=== PATIENT | female | born 1930 | race Caucasian/White ===

== ENCOUNTER 2017-02-20 17:31 | Inpatient (IN) | payer MEDICARE, OTHER ==
[~2017-02-20] VITALS: Ht 160 cm; Wt 66.4 kg
[~2017-02-20 17:31] MED LIST: ACET650T85 PO; AMIO200T PO; ATOR40TA21 PO; DOCU-144 PO; ETOMIDATE 20 MG INJ ONE; FOLI-49 PO; FURO-109 PO; HYDR-3498 PO; LEVO75TA5 PO; LORA-441 PO; MAGN400O4 PO; POTA20TA96 PO; PROSTAT PO; WARF1TAB47 PO; [UNRECOGNIZED DRUG - CODE] PO; miralax
[2017-02-20] MEDS ORDERED: SODIUM CHLORIDE 0.9% 1L BAG IV* STA (17:32)
[2017-02-20] MEDS ORDERED: CEFEPIME 2GM/50 ML (PMX) 50 ML IVPB STA (17:32)
[2017-02-20] MEDS ORDERED: SUCCINYLCHOLINE CHLORIDE 100 MG/5 ML SYG IV STA (17:32)
[2017-02-20] MEDS ORDERED: ETOMIDATE 20 MG INJ IV STA (17:32)
--- NOTE | 2017-02-20 17:44 | ERD ---
ER Documentation Chief Complaint Chief Complaint HPI This is an 86-year-old female presented to the emergency department brought in by EMS from [facility] for changes in her mental status. The patient is a full code. The patient is a phasic but nursing staff indicated she appeared to have severe difficulty in breathing and appeared less responsive prior to arrival. The patient did not have a fever and when EMS arrived the patient was not hypoxic on room air but appeared to be tachypneic. No further history is available at this time other than that the patient had a recent hospitalization at [facility] the patient has a known left buttock ulcer ROS All systems reviewed and are negative except as per history of present illness. Medications Home Meds Reported Medications Megestrol Acetate* (Megestrol Acetate*) 400 Mg/10 Ml Susp, 400 MG PO DAILY, ML 02/20/17 Mirtazapine* (Mirtazapine*) 7.5 Mg Tablet, 7.5 MG PO HS, TAB 02/20/17 Hydrocodone/Acetaminophen ([place] 7.5-325 Tablet) 1 Each Tablet, 1 EACH PO Q6 Y for MODERATE PAIN LEVEL 4-6, TAB 02/20/17 Albuterol Sulfate* (Albuterol Sulfate* Neb) 0.083%-3 Ml Neb, 2.5 MG NEB Q6 Y for WHEEZING AND SOB, #30 VIAL 02/20/17 Acetaminophen* (Acetaminophen*) 650 Mg Tablet, 650 MG PO Q6H Y for MILD PAIN LEVEL 1-3, #30 TAB 02/20/17 Metoprolol Tartrate* (Lopressor*) 25 Mg Tablet, 25 MG PO DAILY, #60 TAB 02/20/17 Warfarin Sodium* (Coumadin*) 1 Mg Tablet, 1 MG PO DAILY, TAB 02/20/17 Furosemide* (Lasix*) 20 Mg Tablet, 20 MG PO DAILY, TAB 02/20/17 Potassium Chloride* (Klor-Con*) 20 Meq Tabsr, 20 MEQ PO BID, TAB.SA 02/20/17 Multivitamins* (Theragran*) 1 Tab Tab, 1 TAB PO DAILY, TAB 02/20/17 Polyethylene Glycol* (Miralax*) 17 Gm Powd.pack, 17 GM PO DAILY, #30 PACKET 02/20/17 Megestrol Acetate* (Megace*) 40 Mg Tab, 40 MG PO BID, TAB 02/20/17 Levothyroxine Sodium* (Levoxyl*) 150 Mcg Tablet, 150 MCG PO BEFORE BREAKFAST, # 30 TAB 02/20/17 Ferrous Sulfate* (Ferrous Sulfate*) 325 Mg Tabec, 325 MG PO DAILY, TAB 02/20/17 Docusate Sodium* (Colace*) 100 Mg Capsule, 100 MG PO BID, #60 CAP 02/20/17 Calcium Carbonate/Vitamin D3 ([place] 500+D Tablet) 1 Each Tablet, 1 EACH PO DAILY , TAB 02/20/17 Atorvastatin* (Atorvastatin*) 40 Mg Tablet, 40 MG PO QHS, #30 TAB 02/20/17 Ascorbic Acid* (Vitamin C*) 500 Mg Capsule.sa, 500 MG PO DAILY, CAP 02/20/17 Polyvinyl Alcohol (Tears Again) 15 Ml Drops, 1 DRP BOTH EYES TID, BOTTLE 02/20/17 Amiodarone Hcl* (Amiodarone Hcl*) 100 Mg Tablet, 100 MG PO DAILY, #30 TAB 02/20/17 Acetaminophen (Tylenol 8 Hour) 650 Mg Tablet.sa, 650 MG PO Q4 PRN, 0 Refills 06/14/11 Discontinued Reported Medications Mirtazapine* (Remeron*) 15 Mg Tablet, 15 MG PO HS, TAB 02/20/17 Hydrocodone Bit-Acetaminophen* (Hydrocodone-APAP*) 5-325 Tablet, 1 TAB PO Q4H Y for PAIN LEVEL 1-5, TAB 08/06/14 Potassium Chloride* (Potassium Chloride*) 20 Meq Tablet.er, 20 MEQ PO DAILY, TAB.SA 08/06/14 [miralax] No Conflict Check 04/30/14 Furosemide* (Lasix*) 40 Mg Tablet, 40 MG PO DAILY, TAB 04/30/14 Atorvastatin (Lipitor) 40 Mg Tablet, 40 MG PO DAILY 09/15/11 Warfarin Sodium* (Coumadin*) 1 Mg Tablet, 1.5 MG PO Q 5PM 09/15/11 Magnesium Hydroxide* (Milk Of Magnesia*) 400 Mg/5 Ml Oral.susp, 400 MG PO 30 ML QHS PRN 09/15/11 Amiodarone Hcl* (Amiodarone Hcl*) 200 Mg Tablet, 200 MG PO DAILY 100mg PO DAILY 09/15/11 Levothyroxine Sodium* (Levothyroxine Sodium*) 75 Mcg Tablet, 100 MCG PO AM, #1 09/15/11 Docusate Sodium* (Colace*) 100 Mg Capsule, 100 MG PO BID, #1 CAP 09/15/11 Lorazepam* (Ativan*) 0.5 Mg Tablet, PO Q4 PRN 08/17/11 Folic Acid* (Folic Acid*) 1 Mg Tablet, PO DAILY 12/22/10 Multivitamins ([place]) 1 Tab Tablet, PO DAILY 12/22/10 [Prostat] No Conflict Check, 30 ML PO BID, 0 Refills 12/22/10 Allergies Allergies: Coded Allergies: epinephrine (Verified Allergy, Unknown, 04/30/14) procaine (Verified Allergy, Unknown, 04/30/14) Uncoded Allergies: NOVOCAINE (Allergy, Unknown, 04/30/14) PMhx/Soc History of Surgery: Yes (LEFT CATARACT SURGERY, CABG 2, LEFT LEG BLOOD CLOT INTERVENTION) Anesthesia Reaction: No Hx Neurological Disorder: No Hx Respiratory Disorders: No Hx Cardiac Disorders: Yes (HTN, HIGH CHOLESTEROL, CHF) Hx Psychiatric Problems: No Hx Miscellaneous Medical Probl: No Hx Alcohol Use: No Hx Substance Use: No Hx Tobacco Use: No Physical Exam Vitals Vital Signs Date Time Temp Pulse Resp B/P Pulse Ox O2 Delivery O2 Flow Rate FiO2 02/20/17 21:35 89 19 100 40 02/20/17 21:20 89 18 137/49 97 Mechanical Ventilator 02/20/17 20:40 98.2 92 18 122/56 96 Mechanical Ventilator 02/20/17 20:05 40 02/20/17 19:24 100.5 124 36 142/52 93 02/20/17 19:15 97 23 100 100 02/20/17 18:50 93 4.0 Physical Exam Constitutional:Well-developed. Debilitatated female in severe respiratory distress HEENT:Normocephalic. Atraumatic.Pupils were equal round reactive to light. Dry mucous membranes.No tonsillar exudates. Neck: No nuchal rigidity. No lymphadenopathy. No posterior cervical spine tenderness or step-offs. Breast: Patient appeared to have breast deformities with a nontender large nodule in each breast that was thought to be secondary to previous breast implants Respiratory: Tachypneic. Using accessory muscles of respiration. Decreased breath sounds heard throughout the right lower lung base. No wheezing rhonchi or rales. No stridor Cardiovascular: Tachycardic with rate regular rhythm.No murmurs. No rubs were appreciated.S1, S2 normal. Distal pulses are palpable 2+ bilaterally. GI: Abdomen was soft. Nontender. Non Distended. No pulsatile abdominal masses or bruits. No rebound. No guarding. Bowel sounds were present and normal. Muscle skeletal: Patient had muscle atrophy and no movement of the lower extremities. Withdrew to pain in the bilateral upper extremities Skin: No petechia, no purpura. No lesions on the palms or the soles of the feet. No maculopapular rash. Left sacral decubitus ulcer stage I with no purulent drainage. NEURO: Patient opened eyes in response to pain. Patient withdrew to pain. Patient did not follow verbal command. Patient was aphasic. Result Diagram: 02/20/17183902/[id number]/171839 Results 24 hrs Laboratory Tests Test 02/20/17 17:32 02/20/17 18:40 02/20/17 20:37 02/20/17 20:40 Blood Gas Specimen Source Blood arterial Arterial Blood Date Drawn 02/20/2017 7:56:02 PM Arterial Blood pH (Temp corrected) 7.291 Arterial Blood pCO2 (Temp correct) 29.5mmhg Arterial Blood pO2 (Temp corrected) 432.5mmHG Arterial Blood HCO3 13.9mmol/L Arterial Blood Base Excess -11.3mmol/L Arterial Blood Oxygen Saturation 99.6mmHG Simon Test ACCEPTAB Arterial Blood Gas Puncture Site Right Radial Arterial Blood Carboxyhemoglobin 0.3% Arterial Blood Methemoglobin 0.2% Blood Gas A-a O2 Differential 251.0mmHg Oxyhemoglobin Percent 99.1% Total Hemoglobin 12.6g/dl Blood Gas Temperature 37.0C Blood Gas Respiration Rate 18.0 Blood Gas Actual Respiration Rate 22 Blood Gas Modality VENT - AC FiO2 100.0% Blood Gas Tidal Volume 450.0mL Blood Gas Low PEEP Setting 0cmH2O Blood Gas Inspiratory Pressure 18.0 Blood Gas Critical Value Read Back LALO BHANDARI Blood Gas Notified Whom BR Blood Gas Notified Time 02/20/2017 8:02:55 PM White Blood Count 17.410^3/ul Red Blood Count 4.0510^6/ul Hemoglobin 12.7g/dl Hematocrit 39.8% Mean Corpuscular Volume 98.3fl Mean Corpuscular Hemoglobin 31.4pg Mean Corpuscular Hemoglobin Concent 31.9g/dl Red Cell Distribution Width 15.9% Platelet Count 36569^3/UL Mean Platelet Volume 11.5fl Neutrophils % % Segmented Neutrophils % (Manual) 92% Band Neutrophils % (Manual) 2% Lymphocytes % % Monocytes % % Monocytes % (Manual) 6% Eosinophils % % Basophils % % Nucleated Red Blood Cells % 0.0/100WBC Neutrophils # 10^3/ul Neutrophils # (Manual) 16.110^3/ul Band Neutrophils # 0.310^3/ul Lymphocytes # 10^3/ul Monocytes # 10^3/ul Absolute Monocytes (Manual) 1.010^3/ul Eosinophils # 10^3/ul Basophils # 10^3/ul Nucleated Red Blood Cells # 10^3/ul Platelet Estimate NORMAL Anisocytosis 1+ Prothrombin Time 39.4Sec Prothrombin Time Ratio 3.0 INR International Normalized Ratio 3.92 Activated Partial Thromboplast Time 41.2Sec Sodium Level 147mmol/L Potassium Level 5.5mmol/L Chloride Level 115mmol/L Carbon Dioxide Level 16mmol/L Anion Gap 22 Blood Urea Nitrogen 33mg/dl Creatinine 1.05mg/dl Glucose Level 149mg/dl Lactic Acid Level 4.0mmol/L 2.7mmol/L Calcium Level 8.9mg/dl Total Bilirubin 0.8mg/dl Direct Bilirubin 0.00mg/dl Indirect Bilirubin 0.8mg/dl Aspartate Amino Transf (AST/SGOT) IU/L Alanine Aminotransferase (ALT/SGPT) 1464IU/L Alkaline Phosphatase 84IU/L Troponin I 0.086ng/ml Total Protein 6.8g/dl Albumin 3.5g/dl Globulin 3.30g/dl Albumin/Globulin Ratio 1.06 Amylase Level 77U/L Lipase 64U/L Urine Color ERIN Urine Clarity CLOUDY Urine pH 5.0 Urine Specific [place] 1.017 Urine Ketones NEGATIVEmg/dL Urine Nitrite NEGATIVEmg/dL Urine Bilirubin NEGATIVEmg/dL Urine Urobilinogen 1+mg/dL Urine Leukocyte Esterase NEGATIVELeu/ul Urine Microscopic RBC 1/HPF Urine Microscopic WBC 1/HPF Urine Amorphous Crystals MODERATE/HPF Urine Bacteria FEW/HPF Urine Hemoglobin NEGATIVEmg/dL Urine Glucose NEGATIVEmg/dL Urine Total Protein 2+mg/dl Current Medications Medications (Trade) Dose Ordered Sig/Maikel Route PRN Reason Start Time Stop Time Status Last Admin Dose Admin Sodium Chloride 2170 ml 2,170 ml BOLUS OVER 2 HOURS STAT IV* 02/20/17 17:32 02/20/17 17:38 DC 02/20/17 19:05 Cefepime HCl 50 ml @ 100 mls/hr ONCE STAT IVPB 02/20/17 17:32 02/20/17 18:01 DC 02/20/17 19:05 Vancomycin HCl (Vancocin) 250 ml @ 125 mls/hr ONCE ONCE IVPB 02/20/17 18:00 02/20/17 19:59 DC 02/20/17 18:00 Succinylcholine Chloride (Anectine Syringe) 100 mg ONCE STAT IV 02/20/17 17:32 02/20/17 17:38 DC Etomidate 10 mg 10 mg ONCE STAT IV 02/20/17 17:32 02/20/17 17:39 DC Midazolam HCl 50 ml @ 3 mls/hr ONCE STAT IV 02/20/17 19:55 02/21/17 12:34 02/20/17 20:11 Dextrose/Sodium Chloride (D5-1/2ns) 1,000 ml @ 100 mls/hr Q10H IV 02/20/17 21:14 Ondansetron HCl (Zofran Inj) 4 mg Q6H PRN IV NAUSEA AND/OR VOMITING 02/20/17 21:30 Albuterol/ Ipratropium (Duoneb) 3 ml Q2H RESP THERAPY PRN NEB SHORTNESS OF BREATH 02/20/17 21:30 Acetaminophen (Tylenol Liquid) 650 mg Q6H PRN PO PAIN LEVEL 1-3 OR FEVER 02/20/17 21:30 Morphine Sulfate (morphine) 2 mg Q4H PRN IV PAIN LEVEL 7-10 02/20/17 21:30 UNV Lorazepam (Ativan) 1 mg Q2H PRN IV ANXIETY 02/20/17 21:30 UNV Magnesium Hydroxide (Milk Of Mag) 30 ml DAILY PRN PO CONSTIPATION 02/20/17 21:30 UNV Pantoprazole (Protonix Iv) 40 mg DAILY@06 IV 02/21/17 06:00 UNV Heparin Sodium (Porcine) 5000 unit 5,000 unit Q12 SC 02/21/17 09:00 UNV Propofol 100 ml @ 2.181 mls/ hr PER PROTOCOL IV 02/20/17 21:30 UNV Norepinephrine 250 ml @ 1.875 mls/ hr PER PROTOCOL IV 02/20/17 21:30 UNV Meropenem/Sodium Chloride (Merrem 500mg/50 ml(Pmx)) 50 ml @ 200 mls/hr Q8 IVPB 02/20/17 22:00 UNV Vancomycin HCl (Vanco Iv Per Pharmacy) VANCOMYCIN PER PHARMACY PER PROTOCOL XX 02/20/17 21:30 UNV Procedures/MDM Patient presented to the emergency department in severe respiratory distress and changes in her mental status. The patient presented to the emergency department with an acute and persistent change in their mental status. The differential diagnosis is diverse however reversible causes such as hypoglycemia , opiate overdose, thiamine deficiency were immediately considered. The patient was placed on a cardiac rehabilitation program director, continuous pulse oximetry and IV access was established. The patients airway was not secured she had impending airway failure with tachypnea and therefore I had to consider hypoxic events such as anemia, shock, or severe pulmonary disease were all considered as etiologies in this patients presentation. Circulation assessed with good cap refill. Finger stick for rapid glucose determined to be normal. Patient's infectious symptoms have not stabilized and the patient is at risk of rapid decompensation. The patient will be admitted for careful hydration, antibiotic therapy, and infectious source control. Severe Sepsis Assessment: Infectious Source: Pneumonia End organ damage indicated by: Lactate > 2.0 mmol/L Hypotension( SBP < 90 or >40 mmHG drop or MAP < 65) Acute Resp Failure (sat < 92% w/o oxygen) Severe Sepsis Managment: Blood Cultures X 2 before broad spectrum antibiotics initiated within 3 hours of recognition. 30 ml/kg NS bolus Completed Initial Lactate: 4.0 Repeat Lactate 2.7 Critical Care: Treatments/Evaluations: Emergent fluid management, while maintaining close respiratory support. Immediate broad spectrum antibiotic therapy. Simultaneous assessment for possible sources in order to direct therapy. Consideration for invasive and chemical support to prevent respiratory or cardiac collapse. Septic Shock Assessment (1 hour post 30 ml/kg fluid bolus): Hypotension (SBP < 90 or 40 mmHg drop, MAP < 65): No Lactic acid > 4.0 Yes Perfusion Reassessment for Septic Shock: Temp 98.2, Pulse 89 RR 18, BP 137/49 Heart Exam: Tachycardic Lung Exam: No Crackles Capillary Refill: Delayed Peripheral Pulses: Radially present Skin: Mottled, pale Hypotensive Treatment (not required for isolated lactic acid elevation): Comfort Care: No Central LIne: Left IJ Vasopressor started: not required. I considered further perfusion assessment with CVP measurement, SCVO2, bedside ultrasound volume assessment, passive leg raise, trial of further fluid bolus. And preceded with IV fluids 12 Lead EKG tracing ordered and reviewed by myself showed: Irregular irregular tachycardic at 121 bpm and no arrhythmia. CA interval not appreciated as patient had atrial fibrillation QRS duration normal. No ST segment elevation No ST segment depression. No changes consistent with acute ischemia. The patient was in A. fib with RVR with I did feel this was more likely secondary to severe dehydration as the patient's tachycardia had resolved after receiving the 30 cc/kg bolus of normal saline. The patient had mild hyperkalemia and was treated with calcium chloride and amp of bicarb and continuous nebulizer treatment of albuterol. CT scan of the head showed no acute intracerebral hemorrhage mass-effect or midline shift and this was ordered due to the patient's change in her mental status. I did feel the altered mental status was likely secondary to the patient's septic shock She was intubated using RSI for airway protection as the patient had impending airway failure. Patient was given etomidate and succinylcholine. Patient had a 7.50 endotracheal tube seen in past going to the cords by myself. Secured to the lip line of roughly 23 cm in the chest radiograph indicated this was 5 cm above the cristian and therefore the tube was repositioned. Tube was confirmed to be in good position after equal symmetrical breath sounds were heard bilaterally, condensation seen within the tube in good repositioned on repeat chest radiograph The patient was critically ill and required central venous access. The patient was unable to consent due to her severe altered mental status and after was prepped and draped in a sterile fashion. Time out performed and the left internal jugular vein was cannulated using the Seldinger technique after anesthesia administered with 1% lidocaine locally. A triple lumen catheter used. The guidewire was easily thread into the vessel. The guidewire was retrieved, removed and disposed of. All three ports santa back venous blood and flushed easily. The line was secured in place with 2 simple interrupted sutures and a biostat was applied over the area in inoculation. The patient tolerated the procedure well with no complications. ED Ultrasound: Central line placed by me using concurrent ultrasound guidance. Real time image archived in the medical record confirms vascular anatomy. Critical Care: Time: 70 minutes Treatments/Evaluations: Close monitoring and treatment of unstable vital signs, cardiorespiratory, and neurologic status, while maintaining tight balance of fluid, respiratory, and cardiac interventions. Time does not include performing any of the above billable procedures. Patient will be admitted in serious condition to the hospitalist Dr. Carl with an anticipated stay of greater than 2 midnights. Departure Diagnosis: Primary Impression: Septic shock Additional Impressions: Pneumonia Pneumonia type: due to unspecified organism Laterality: left Lung location : lower lobe of lung Qualified Code: J18.1 - Pneumonia of left lower lobe due to infectious organism Hyperkalemia Respiratory failure requiring intubation Condition: Serious PANFILO SAGE Feb 20, 2017 17:44
[2017-02-20] MEDS ORDERED: VANCOMYCIN 1 GM (PMX) 250 ML IVPB ONE (18:00)
[2017-02-20] MEDS ORDERED: AMIO100T4 PO (18:17)
[2017-02-20] MEDS ORDERED: POLY15DR25 BOTH EYES (18:17)
[2017-02-20] MEDS ORDERED: ATOR40TA68 PO (18:18)
[2017-02-20] MEDS ORDERED: ASCO500C7 PO (18:18)
[2017-02-20] MEDS ORDERED: DOCU-144 PO (18:19)
[2017-02-20] MEDS ORDERED: FER325 PO (18:19)
[2017-02-20] MEDS ORDERED: LEVO150T64 PO (18:19)
[2017-02-20] MEDS ORDERED: CALC1TAB79 PO (18:19)
[2017-02-20] MEDS ORDERED: MEGE40TA PO (18:21)
[2017-02-20] MEDS ORDERED: POLY17PO6 PO (18:21)
[2017-02-20] MEDS ORDERED: MULTI PO (18:22)
[2017-02-20] MEDS ORDERED: FURO-110 PO (18:22)
[2017-02-20] MEDS ORDERED: POTA-57 PO (18:22)
[2017-02-20] MEDS ORDERED: WARF1TAB47 PO (18:23)
[2017-02-20] MEDS ORDERED: METO25TA4 PO (18:23)
[2017-02-20] MEDS ORDERED: ACET-2047 PO (18:24)
[2017-02-20] MEDS ORDERED: ALBU2.5V3 NEB (18:24)
[2017-02-20] MEDS ORDERED: HYDR-905 PO (18:25)
[2017-02-20] MEDS ORDERED: MIRT7.5T8 PO (18:26)
[2017-02-20] MEDS ORDERED: MIRT15TA PO (18:26)
[2017-02-20] MEDS ORDERED: MEG40/1 PO (18:28)
[2017-02-20 19:07] LABS: ABNORMAL IP MESSAGE 1; HEMATOCRIT 39.8 % (37.0-47.0); HEMOGLOBIN 12.7 g/dl (12.0-16.0); MEAN CORPUSCULAR HEMOGLOBIN 31.4 pg (29.0-33.0); MEAN CORPUSCULAR HGB CONC 31.9 g/dl (32.0-37.0); MEAN CORPUSCULAR VOLUME 98.3 fl (82.0-101.0); MEAN PLATELET VOLUME 11.5 fl (7.4-10.4); PLATELET COUNT 275 10^3/UL (140-415); RED BLOOD COUNT 4.05 10^6/ul (4.20-5.40); RED CELL DISTRIBUTION WIDTH 15.9 % (11.5-14.5); WHITE BLOOD COUNT 17.4 10^3/ul (4.8-10.8)
[2017-02-20 19:10] LABS: POSITIVE DIFF @See below
--- NOTE | 2017-02-20 19:11 | RADRPT ---
PROCEDURE: Chest x-ray CLINICAL INDICATION: Central line placement TECHNIQUE: Chest single view COMPARISON: None FINDINGS: There is a left IJ venous line with tip in the proximal SVC. No pneumothorax is identified. Post tho racotomy changes are noted for a mitral, aortic, tricuspid valve replacement. Moderate cardiomegaly and an sclerotic aortic calcification is seen. There is mild interstitial CHF. Small bilateral pleur al effusions are seen. Bones are osteopenic. IMPRESSION: 1. Left IJ venous line with tip in the proximal SVC. No pneumothorax. 2. Cardiomegaly with mild CHF and small bilateral pleural effusions. 3. Atherosclerotic aortic calcification. 4. Status post aortic, mitral, and tricuspid valve replacement RPTAT: HH .Binh Taveras MD, Date Time Electronically viewed and signed by .Binh Taveras MD, on 02/20/2017 19:10 .W/
[2017-02-20 19:26] LABS: INR 3.92; PARTIAL THROMBOPLASTIN TIME 41.2 Sec (25.0-35.0)
[2017-02-20 19:29] LABS: ALBUMIN 3.5 g/dl (3.3-4.9); ALBUMIN/GLOBULIN RATIO 1.06; BILIRUBIN,INDIRECT 0.8 mg/dl (0-1.1); BILIRUBIN,TOTAL 0.8 mg/dl (0.2-1.3); CALCIUM 8.9 mg/dl (8.4-10.2); CREATININE 1.05 mg/dl (0.44-1.00); TOTAL PROTEIN 6.8 g/dl (6.1-8.1)
[2017-02-20 19:35] LABS: POTASSIUM 5.5 mmol/L (3.5-5.1)
[2017-02-20 19:38] LABS: PROTIME 39.4 Sec (12.2-14.2)
[2017-02-20 19:46] LABS: ANISOCYTOSIS 1+ (0-0); BURR CELLS 1+ (0-0); MONOCYTES % (M) 6 % (0-11); PLATELET ESTIMATE NORMAL
[2017-02-20 19:49] LABS: TROPONIN-I 0.086 ng/ml (0.00-0.12)
[2017-02-20] MEDS ORDERED: MIDAZOLAM (DRIP) 50 mg/50 mL 50 ML IV STA (19:55)
--- NOTE | 2017-02-20 19:57 | RADRPT ---
PROCEDURE: XR Chest. CLINICAL INDICATION: Endotracheal intubation. TECHNIQUE: Single frontal view of the chest COMPARISON: Plain film chest dated today, about 1 hour ago. FINDINGS: Endotracheal intubation is seen with tip about 5 cm above the cristian. Left central venous line again seen with tip in the superior vena cava. Cardiomegaly with atherosclerotic calcifications in the thoracic aorta. Left lung base pneumonia. Mi ld air space disease at the right lung base. Mild blunting of costophrenic angles suggest small bila teral pleural effusions. Prominence of bilateral pulmonary arteries may represent a degree of pulmon reggie artery hypertension. No signs of pneumothorax are seen. The osseous structures and soft tissues are unremarkable. IMPRESSION: 1. Left lung base pneumonia. 2. Small bilateral pleural effusions. 3. Nonspecific mild opacity at the right apex. 4. Endotracheal intubation is seen with tip about 5 cm above the cristian. 5. Left central venous line again seen with tip in the superior vena cava. RPTAT: UU Physician Michelle Date Time Electronically viewed and signed by Physician Michelle on 02/20/2017 19:57 RS/
[2017-02-20 20:03] LABS: Allen Test ACCEPTAB; Arterial Base Excess -11.3 mmol/L (-3.0-3); Arterial COHb 0.3 % (0.0-3.0); Arterial Fraction of Oxyhgb 99.1 % (93.0-99.0); Arterial HCO3 13.9 mmol/L (22.0-26.0); Arterial MetHb 0.2 % (0.0-1.5); Arterial Total Hemglobin 12.6 g/dl (12.0-18.0); Blood Gas Low PEEP Setting 0 cmH2O; MODE VENT - AC
[2017-02-20] MEDS: DEXTROSE 5%-0.45% NACL 1,000 ML IV SCH (21:14)
[2017-02-20 21:24] LABS: ADD UMIC YES; UR AMORPHOUS CRYSTAL MODERATE /HPF (NONE SEEN); UR ASCORBIC ACID 40 mg/dL (NEGATIVE); UR BACTERIA FEW /HPF (NONE SEEN); UR BILIRUBIN (Dip) NEGATIVE (NEGATIVE); UR BLOOD (Dip) NEGATIVE (NEGATIVE); UR CLARITY CLOUDY (CLEAR); UR COLOR AMBER (YELLOW); UR GLUCOSE (Dip) NEGATIVE (NEGATIVE); UR KETONES (Dip) NEGATIVE (NEGATIVE); UR LEUKOCYTE ESTERASE (Dip) NEGATIVE Leu/ul (NEGATIVE); UR NITRITE (Dip) NEGATIVE (NEGATIVE); UR RBC 1 /HPF (0-5); UR SPECIFIC GRAVITY (Dip) 1.017 (1.003-1.030); UR TOTAL PROTEIN (Dip) 2+ mg/dl (NEGATIVE); UR UROBILINOGEN (Dip) 1+ mg/dL (NEGATIVE)
[2017-02-20] MEDS ORDERED: ALBUTEROL/IPRATROPIUM (NEB) 3 ML AMP NEB PRN (21:30)
[2017-02-20] MEDS ORDERED: NORepinephrine 8MG/250 ML (PMX 250 ML IV SCH (21:30)
[2017-02-20] MEDS ORDERED: ACETAMINOPHEN 650MG/20.3ML CUP PO PRN (21:30)
[2017-02-20] MEDS ORDERED: MAGNESIUM HYDROXIDE 30ML CUP PO PRN (21:30)
[2017-02-20] MEDS ORDERED: PROPOFOL 100 ML IV SCH (21:30)
[2017-02-20] MEDS ORDERED: ONDANSETRON 4 MG INJ IV PRN (21:30)
[2017-02-20] MEDS ORDERED: LORAZEPAM 2 MG INJ IV PRN (21:30)
[2017-02-20] MEDS ORDERED: VANCOMYCIN IV PER PHARMACY XX SCH (21:30)
[2017-02-20] MEDS ORDERED: ALBUTEROL 0.5% (NEB) 2.5 MG/0.5 ML AMP INH STA (21:41)
[2017-02-20] MEDS ORDERED: NA BICARBONATE 8.4% 50 ML SYG IV STA (21:41)
[2017-02-20] MEDS ORDERED: CA CHLORIDE 10% 10 ML SYRINGE IV STA (21:41)
--- NOTE | 2017-02-20 22:16 | RADRPT ---
PROCEDURE: CT head without contrast. CLINICAL INDICATION: Altered mental status. TECHNIQUE: Multiple contiguous axial images were obtained from the base of the skull to the vertex without administration of intravenous contrast. Coronal and sagittal reformats were obtained. The total exam CTDI equals 45 mGy and the total exam DLP equals 720 mGy-cm. DICOM images are available . One or more of the following dose reduction techniques were utilized: - Automated exposure control - Adjustment of the mA and/or kV according to patient size - Use of iterative reconstruction technique COMPARISON: None. FINDINGS: The ventricles, basal cisterns and sulcal pattern are prominent and consistent with parenchymal volu me loss. There is no acute mass effect, midline shift or hemorrhage. No extra-axial fluid collecti ons are identified. Extensive diminished attenuation in the subcortical and periventricular white matter is compatible w ith chronic microvascular ischemic changes. More focal hypoattenuation in the right occipital lobe a nd right cerebellar hemisphere are consistent with a chronic infarcts. The bones of the calvarium are intact. The paranasal sinuses and bilateral mastoid complexes are gr ossly within normal limits. There are bilateral age indeterminate nasal bone fractures. Feeding tube is present. Associated nasopharyngeal secretions are present. IMPRESSION: 1. No acute intracranial pathology. 2. Extensive chronic microvascular ischemic changes. 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 RPTAT:AAJJ Physician Ngozi Date Time Electronically viewed and signed by Physician Ngozi on 02/20/2017 22:15 QL/
[2017-02-20] MEDS: morphine 2 MG INJ IV PRN (22:17)
[2017-02-20 22:20] VITALS: TEMP 98.1
[2017-02-20] MEDS: MEROPENEM 500MG/50 ML (PMX) 50 ML IVPB SCH (22:43)
[2017-02-20 23:48] VITALS: PULSE 117
[2017-02-21] VITALS (73 sets, daily range): BP systolic 72–157; BP diastolic 34–77; PULSE 82–154; RESP 18–22; Ht 160 cm; Wt 66.4 kg
[2017-02-21 05:33] LABS: BASOPHILS % 0.2 % (0.0-2.0); HEMATOCRIT 33.9 % (37.0-47.0); HEMOGLOBIN 10.7 g/dl (12.0-16.0); LYMPHOCYTES # 0.7 10^3/ul (0.8-2.9); LYMPHOCYTES % 5.1 % (15.0-51.0); MEAN CORPUSCULAR HEMOGLOBIN 31.1 pg (29.0-33.0); MEAN CORPUSCULAR HGB CONC 31.6 g/dl (32.0-37.0); MEAN CORPUSCULAR VOLUME 98.5 fl (82.0-101.0); MEAN PLATELET VOLUME 11.1 fl (7.4-10.4); MONOCYTE # 0.5 10^3/ul (0.3-0.9); MONOCYTES % 4.2 % (0.0-11.0); NEUTROPHIL # 11.6 10^3/ul (1.6-7.5); NEUTROPHILS % 89.7 % (39.0-77.0); PLATELET COUNT 199 10^3/UL (140-415); RED BLOOD COUNT 3.44 10^6/ul (4.20-5.40); RED CELL DISTRIBUTION WIDTH 15.9 % (11.5-14.5); WHITE BLOOD COUNT 12.9 10^3/ul (4.8-10.8)
[2017-02-21 05:52] LABS: ALBUMIN 2.7 g/dl (3.3-4.9); ALBUMIN/GLOBULIN RATIO 0.87; BILIRUBIN,INDIRECT 0.5 mg/dl (0-1.1); BILIRUBIN,TOTAL 0.5 mg/dl (0.2-1.3); CALCIUM 8.5 mg/dl (8.4-10.2); CREATININE 1.13 mg/dl (0.44-1.00); POTASSIUM 4.4 mmol/L (3.5-5.1); TOTAL PROTEIN 5.8 g/dl (6.1-8.1)
[2017-02-21] MEDS ORDERED: PANTOPRAZOLE 40 MG INJ IV SCH (06:00)
--- NOTE | 2017-02-21 06:39 | HP ---
Date/Time of Note Date/Time of Note DATE: 02/21/17 TIME: 06:21 Assessment/Plan VTE Prophylaxis VTE Prophylaxis Intervention: SCD's, other (INR almost 4) Lines/Catheters IV Catheter Type (from Nrsg): Central Line Central line still needed: Yes Urinary Cath still in place: Yes Reason Cath still needed: other (indicate) Assessment/Plan Assessment/Plan 1. Septic shock, multifactorial etiology: Left lung base pneumonia, left buttock ulcer, ESBL UTI per SNF -Continue pressor and vent support -Broad-spectrum antibiotics -IV fluids -Follow-up culture results -ID consult -Wound care consult for left buttock ulcer 2. Vent dependent respiratory failure -Continue vent support -Breathing treatments -Pulmonary consult -Check ABG in a.m. 3. Shock liver -Obtain CT abdomen/pelvis vs abdominal ultrasound -Treat septic shock -GI consult 4. Acute encephalopathy -Patient with a history of CVA. This is actually acute on chronic, secondary to septic shock -will obtain additional brain imaging as needed -Neurology consult -Treat infection 5. History of mitral valve repair, on Coumadin with INR almost 4 -Hold Coumadin -2D echo and cardiology consult 6. History of hypothyroidism -Check TSH -Continue Synthroid 7. Presumed AK I -Treat septic shock -If no improvement in a.m., will obtain renal ultrasound 8. Electrolyte abnormalities -Correct as needed HPI/ROS Admit Date/Time Admit Date/Time Feb 20, 2017 at 21:09 Hx of Present Illness This is an 86-year-old female with a history of CVA, mitral valve repair and left buttock ulcer who was sent from a correction facility for worsening altered mentation. Reportedly when EMS arrived, she was hypoxic. When patient presented to the ER, she was unresponsive. She was intubated for airway protection. Reportedly patient was in [facility] and has been treated for ESBL UTI. On initial presentation to the ER, she was in A-fib with RVR with a heart rate as high as 129. Chest x-ray with left lower lung base pneumonia. Head CT shows Extensive chronic microvascular ischemic changesChronic infarcts in the right occipital lobe and right cerebellar hemisphere. Labs shows a WBC of 17,000, potassium 5.5, bicarb 16, creatinine 1.05, ALT almost 1500. Initial lactic acid was 4 with repeat 2.1. Initial ABG shows a pH of 7.29, PCO2 29, PO2 432, bicarb 14 on 100% FiO2 PMH/Family/Social Social History Smoking Status: Unknown if ever smoked Exam/Review of Systems Vital Signs Vitals Vital Signs Date Time Temp Pulse Resp B/P Pulse Ox O2 Delivery O2 Flow Rate FiO2 02/21/17 05:40 97 18 98 30 02/21/17 05:30 114/54 Mechanical Ventilator 02/21/17 04:00 97.8 02/20/17 18:50 4.0 Intake and Output 02/20/17 02/20/17 02/21/17 15:00 23:00 07:00 Intake Total 359 ml Balance 359 ml Exam Constitutional: other (Intubated. Unresponsive. No discomfort noted on the vent) Head: atraumatic, normocephalic Eyes: other (Right pupil is dilated and is unresponsive to light. Left eye is responsive to light) Respiratory: diminished breath sounds Cardiovascular: other (Tachycardic with regular rhythm), systolic murmur Gastrointestinal: soft Extremities: normal pulses Skin: other (Left buttock ulcer) Labs Result Diagram: 02/20/17 1840 02/21/17 0505 Medications Medications Current Medications Dextrose/Sodium Chloride (D5-1/2ns) 1,000 ml @ 100 mls/hr Q10H IV Last administered on 02/20/17 21:14; Admin Dose 100 MLS/HR; Start 02/20/17 at 21: 14 Ondansetron HCl (Zofran Inj) 4 mg Q6H PRN IV NAUSEA AND/OR VOMITING; Start 03/27 at 21:30 Acetaminophen (Tylenol Liquid) 650 mg Q6H PRN PO PAIN LEVEL 1-3 OR FEVER; Start 02/20/17 at 21:30 Morphine Sulfate (morphine) 2 mg Q4H PRN IV PAIN LEVEL 7-10 Last administered on 02/20/17 22:17; Admin Dose 2 MG; Start 02/20/17 at 21:30 Lorazepam (Ativan) 1 mg Q2H PRN IV ANXIETY; Start 02/20/17 at 21:30 Magnesium Hydroxide (Milk Of Mag) 30 ml DAILY PRN PO CONSTIPATION; Start 02/20 at 21:30 Pantoprazole (Protonix Iv) 40 mg DAILY@06 IV ; Start 02/21/17 at 06:00 Heparin Sodium (Porcine) 5000 unit 5,000 unit Q12 SC ; Start 02/21/17 at 09:00 Meropenem/Sodium Chloride 50 ml @ 200 mls/hr Q12 IVPB Last administered on t 22:43; Admin Dose 200 MLS/HR; Start 02/20/17 at 22:00 Vancomycin HCl/ Dextrose/Water (Vancocin/D5W) 150 ml @ 75 mls/hr Q24H IVPB ; Start 02/21/17 at 13:00 JAMEEL GIRARD MD Feb 21, 2017 06:35
[2017-02-21] MEDS ORDERED: MIDAZOLAM (DRIP) 50 mg/50 mL 50 ML IV SCH (07:00)
[2017-02-21] MEDS ORDERED: FENTAnyl (DRIP) 1000 mcg/100mL 100 ML IV ONE (08:40)
[2017-02-21] MEDS: LEVOTHYROXINE 150 MCG TAB PO SCH (08:53)
[2017-02-21] MEDS: DEXTROSE 5%-0.45% NACL 1,000 ML IV SCH ×3 (08:53→21:36)
[2017-02-21] MEDS ORDERED: FENTAnyl (DRIP) 1000 mcg/100mL 100 ML IV SCH (09:00)
[2017-02-21] MEDS ORDERED: HEPARIN 5,000 UNIT/0.5 ML VIAL SC SCH (09:00)
[2017-02-21] MEDS ORDERED: WARFARIN 1 MG TAB PO SCH (09:30)
[2017-02-21 09:35] LABS: AADO2 Arterial 73.3 mmHg (7.0-24.0); Allen Test ACCEPTAB; Arterial Base Excess -6.7 mmol/L (-3.0-3); Arterial COHb 0.1 % (0.0-3.0); Arterial Fraction of Oxyhgb 97.6 % (93.0-99.0); Arterial HCO3 16.2 mmol/L (22.0-26.0); Arterial MetHb 0.3 % (0.0-1.5); Blood Gas Low PEEP Setting 0 cmH2O; MODE VENT - AC
--- NOTE | 2017-02-21 09:52 | RADRPT ---
PROCEDURE: US Abdomen and Retroperitoneum. CLINICAL INDICATION: Abnormal liver function tests. Liver shock. TECHNIQUE: Multiple real-time longitudinal and transverse images were acquired of the patient's ab domen and retroperitoneum utilizing a curved array transducer. COMPARISON: No prior studies are available for comparison. FINDINGS: The liver is normal in size and normal in echogenicity. The liver has a normal smooth surface. Ther e is no focal hepatic lesion. Color Doppler and pulsed Doppler sonography demonstrate normal antegra de flow in the portal vein. The gallbladder is normal with no stones or wall thickening. The bile ducts are normal with the common bile duct measuring 3.6 mm in diameter. The spleen is normal in size. There is no focal splenic lesion. The pancreas is partially seen and is unremarkable. There is a small amount of free fluid in the abdomen. There is a right pleural effusion. The right kidney measures 9.6 cm and the left kidney measures 8.7 cm. There is no solid renal mass. There is a small benign cyst inferiorly in the left kidney measuring 0 .8 cm. There is no hydronephrosis. There are possible small nonobstructing bilateral renal calculi. The abdominal aorta is not dilated. The inferior vena cava is unremarkable. IMPRESSION: 1. Small amount of free fluid in the abdomen. 2. Right pleural effusion. 3. Small benign left renal cyst. 4. Possible small nonobstructing bilateral renal calculi. 5. Otherwise unremarkable ultrasound of the abdomen and retroperitoneum. RPTAT: QQ .Colby Aranda MD, MD Date Time Electronically viewed and signed by .Colby Aranda MD, on 02/21/2017 09:52 .R/
[2017-02-21] MEDS: AMIODARONE 200 MG TAB PO SCH (09:53)
[2017-02-21] MEDS ORDERED: PENDING SANTYL ORDER FOR WOUND CARE XX PRN (10:00)
--- NOTE | 2017-02-21 10:33 | CONS ---
DATE OF ADMISSION: 02/20/2017 DATE OF CONSULTATION: PULMONARY CONSULTATION REASON FOR CONSULTATION: Ventilator management. Thank you, Dr. Carl, for this consultation. HISTORY OF PRESENT ILLNESS: This is an 86-year-old lady with history of CVA, mitral valve repair, c karmen in from residential facility for altered mental status and hypoxemia. Upon arrival, the pat ient was apparently significantly altered requiring emergent intubation and mechanical ventilation. In addition, she was noted to have ration atrial fibrillation with rapid ventricular rate. Initial arterial blood gas demonstrated a metabolic acidosis with a pH of 7.29, pCO2 of 29 and a bicarbonat e of 14. In addition, she has significant transaminitis of unclear etiology. No history of excessi ve Tylenol use per chart. PAST MEDICAL HISTORY: As above. MEDICATIONS: Per chart. ALLERGIES: NONE. SOCIAL HISTORY: Nonsmoker, no alcohol, no history of drug use. FAMILY HISTORY: Noncontributory. SYSTEMS REVIEW: A 12-point review of systems currently unable to perform. PHYSICAL EXAMINATION: GENERAL: Elderly-appearing lady, intubated on mechanical ventilation, appears comfortable at rest, no acute distress. VITAL SIGNS: Currently afebrile, pulse is 120, blood pressure 122/77, O2 saturation 96% on FIO2 of 30%, orally intubated. HEENT: Dry mucous membranes. Pupils equal and reactive to light. CARDIAC: S1, S2, no added sounds or murmurs. CHEST: Diminished air entry bilaterally. ABDOMEN: Soft, nontender. No guarding or rebound. EXTREMITIES: No cyanosis, clubbing, 1+ edema. NEUROLOGIC: Generalized weakness. LABORATORY DATA: White count initially 17, now 12.9. Hemoglobin 10.7, platelets of 199, BUN 32, cr eatinine 1.13. Lactic acid initially 4, now 2.1. Arterial blood gas pH 7.29 on admission, pCO2 of 29. INR 3.90. CT of the brain showed no acute changes. Chest x-ray demonstrates small bilateral pleural effusions, left-sided infiltrate. IMPRESSION AND PLAN: 1. Hypoxemic respiratory failure, possibly secondary to healthcare-associated pneumonia. 2. Significant metabolic acidosis with mild renal insufficiency. 3. Resolving lactic acidosis. 4. Severe transaminitis concerning for acute liver injury in the absence of elevated alkaline phosp hatase. The patient will require: 1. Continue volume resuscitation. 2. Repeat arterial blood gas. 3. Broad-spectrum antibiotics for community-acquired pneumonia. 4. Hold Coumadin. 5. Obtain prior notes. 6. Deep venous thrombosis and gastrointestinal prophylaxis. 7. Consider ultrasound of the liver. Dictated By: NOEMY LECHUGA/ZHAO Conf#: [id number] DID#: [id number]
[2017-02-21] MEDS: MEROPENEM 500MG/50 ML (PMX) 50 ML IVPB SCH ×2 (10:41→21:35)
--- NOTE | 2017-02-21 11:51 | PN ---
Date/Time of Note Date/Time of Note DATE: 02/21/17 TIME: 11:41 Assessment/Plan VTE Prophylaxis VTE Prophylaxis Intervention: SCD's Lines/Catheters IV Catheter Type (from Nrsg): Central Line Central line still needed: No Urinary Cath still in place: Yes Reason Cath still needed: other (indicate) (critically ill) Assessment/Plan Assessment/Plan 86 yo F with advanced dementia, AFib, hypothyroid admitted for acute hypoxic respiratory and sepsis, likely CAP v less likely UTI. Also complicated by shock liver. PLAN #sepsis: cont empiric abx, cultures in process including respiratory cultures #hypoxic respiratory failure: wean vent as tolerated #hypernatremia: likely from decreased PO and insensible losses from sepsis. cont IVFs #KAVYA: likely prerenal from sepsis. cont IVFs #pressure ulcer: wound care cs #proteinuria: check urine p/c #transaminitis: likely shock liver from sepsis. Liver US unremarkable. check vital hepatitis serologies and continue to trend LFTs #AFib: cont home amio and warfarin #hypothyroid: cont home synthroid #prophx: DVT, GI while on vent critical care time: 30 minutes Subjective 24 Hr Interval Summary Free Text/Dictation Pt does not follow commands Exam/Review of Systems Vital Signs Vitals Vital Signs Date Time Temp Pulse Resp B/P Pulse Ox O2 Delivery O2 Flow Rate FiO2 02/21/17 11:30 102 18 107/48 97 02/21/17 11:03 30 02/21/17 11:00 Mechanical Ventilator 02/21/17 08:00 98.3 02/20/17 18:50 4.0 Intake and Output 02/20/17 02/20/17 02/21/17 15:00 23:00 07:00 Intake Total 771 ml Output Total 185 ml Balance 586 ml Exam intuabted, grimaces off sedation no mrg lungs clear abd soft stage 2 sacral pressure ulcer no edema CXR with blurring of lateral heart border Results Result Diagram: 02/21/17 0505 02/21/17 0505 Results 24 hrs Laboratory Tests Test 02/20/17 17:32 02/20/17 18:40 02/20/17 20:37 02/20/17 20:40 Blood Gas Specimen Source Blood arterial Arterial Blood Date Drawn 02/20/2017 7:56:02 PM Arterial Blood pH (Temp corrected) 7.291 *L Arterial Blood pCO2 (Temp correct) 29.5 L Arterial Blood pO2 (Temp corrected) 432.5 H Arterial Blood HCO3 13.9 L Arterial Blood Base Excess -11.3 L Arterial Blood Oxygen Saturation 99.6 Simon Test ACCEPTAB Arterial Blood Gas Puncture Site Right Radial Arterial Blood Carboxyhemoglobin 0.3 Arterial Blood Methemoglobin 0.2 Blood Gas A-a O2 Differential 251.0 H Oxyhemoglobin Percent 99.1 H Total Hemoglobin 12.6 Blood Gas Temperature 37.0 Blood Gas Respiration Rate 18.0 Blood Gas Actual Respiration Rate 22 Blood Gas Modality VENT - AC FiO2 100.0 Blood Gas Tidal Volume 450.0 Blood Gas Low PEEP Setting 0 Blood Gas Inspiratory Pressure 18.0 Blood Gas Critical Value Read Back LALO BHANDARI Blood Gas Notified Whom BR Blood Gas Notified Time 02/20/2017 8:02:55 PM White Blood Count 17.4 H Red Blood Count 4.05 L Hemoglobin 12.7 Hematocrit 39.8 Mean Corpuscular Volume 98.3 Mean Corpuscular Hemoglobin 31.4 Mean Corpuscular Hemoglobin Concent 31.9 L Red Cell Distribution Width 15.9 H Platelet Count 275 Mean Platelet Volume 11.5 H Neutrophils % Segmented Neutrophils % (Manual) 92 H Band Neutrophils % (Manual) 2 Lymphocytes % Monocytes % Monocytes % (Manual) 6 Eosinophils % Basophils % Nucleated Red Blood Cells % 0.0 Neutrophils # Neutrophils # (Manual) 16.1 H Band Neutrophils # 0.3 Lymphocytes # Monocytes # Absolute Monocytes (Manual) 1.0 H Eosinophils # Basophils # Nucleated Red Blood Cells # Platelet Estimate NORMAL Anisocytosis 1+ Prothrombin Time 39.4 H Prothrombin Time Ratio 3.0 INR International Normalized Ratio 3.92 Activated Partial Thromboplast Time 41.2 H Sodium Level 147 H Potassium Level 5.5 H Chloride Level 115 H Carbon Dioxide Level 16 L Anion Gap 22 H Blood Urea Nitrogen 33 H Creatinine 1.05 H Glucose Level 149 Lactic Acid Level 4.0 *H 2.7 *H Calcium Level 8.9 Total Bilirubin 0.8 Direct Bilirubin 0.00 Indirect Bilirubin 0.8 Aspartate Amino Transf (AST/SGOT) Alanine Aminotransferase (ALT/SGPT) 1464 H Alkaline Phosphatase 84 Troponin I 0.086 Total Protein 6.8 Albumin 3.5 Globulin 3.30 H Albumin/Globulin Ratio 1.06 Amylase Level 77 Lipase 64 Urine Color ERIN Urine Clarity CLOUDY A Urine pH 5.0 Urine Specific [place] 1.017 Urine Ketones NEGATIVE Urine Nitrite NEGATIVE Urine Bilirubin NEGATIVE Urine Urobilinogen 1+ H Urine Leukocyte Esterase NEGATIVE Urine Microscopic RBC 1 Urine Microscopic WBC 1 Urine Amorphous Crystals MODERATE Urine Bacteria FEW A Urine Hemoglobin NEGATIVE Urine Glucose NEGATIVE Urine Total Protein 2+ H Test 02/20/17 22:36 02/21/17 05:05 02/21/17 09:10 02/21/17 10:24 Lactic Acid Level 2.1 H 2.0 White Blood Count 12.9 #H Red Blood Count 3.44 L Hemoglobin 10.7 L Hematocrit 33.9 L Mean Corpuscular Volume 98.5 Mean Corpuscular Hemoglobin 31.1 Mean Corpuscular Hemoglobin Concent 31.6 L Red Cell Distribution Width 15.9 H Platelet Count 199 # Mean Platelet Volume 11.1 H Neutrophils % 89.7 H Lymphocytes % 5.1 L Monocytes % 4.2 Eosinophils % 0.0 Basophils % 0.2 Nucleated Red Blood Cells % 0.0 Neutrophils # 11.6 H Lymphocytes # 0.7 L Monocytes # 0.5 Eosinophils # 0.0 Basophils # 0.0 Nucleated Red Blood Cells # 0.0 Sodium Level 146 H Potassium Level 4.4 Chloride Level 118 H Carbon Dioxide Level 19 L Anion Gap 13 # Blood Urea Nitrogen 32 H Creatinine 1.13 H Glucose Level 141 Calcium Level 8.5 Total Bilirubin 0.5 Direct Bilirubin 0.00 Indirect Bilirubin 0.5 Aspartate Amino Transf (AST/SGOT) 1442 H Alanine Aminotransferase (ALT/SGPT) 1506 H Alkaline Phosphatase 65 Total Protein 5.8 #L Albumin 2.7 L Globulin 3.10 Albumin/Globulin Ratio 0.87 Blood Gas Specimen Source Blood arterial Arterial Blood Date Drawn 02/21/2017 9:20:25 AM Arterial Blood pH (Temp corrected) 7.415 Arterial Blood pCO2 (Temp correct) 25.8 L Arterial Blood pO2 (Temp corrected) 110.3 H Arterial Blood HCO3 16.2 L Arterial Blood Base Excess -6.7 L Arterial Blood Oxygen Saturation 98.0 Simon Test ACCEPTAB Arterial Blood Gas Puncture Site Right Radial Arterial Blood Carboxyhemoglobin 0.1 Arterial Blood Methemoglobin 0.3 Blood Gas A-a O2 Differential 73.3 H Oxyhemoglobin Percent 97.6 Total Hemoglobin 13.0 Blood Gas Temperature 37.0 Blood Gas Respiration Rate 18.0 Blood Gas Actual Respiration Rate 19 Blood Gas Modality VENT - AC FiO2 30.0 Blood Gas Tidal Volume 450.0 Blood Gas Low PEEP Setting 0 Blood Gas Notified Whom JLD Blood Gas Notified Time 02/21/2017 9:35:03 AM Ammonia < 9 L Acetaminophen Level < 10.0 L Medications Medications Current Medications Dextrose/Sodium Chloride (D5-1/2ns) 1,000 ml @ 100 mls/hr Q10H IV Last administered on 02/21/17 08:53; Admin Dose 100 MLS/HR; Start 02/20/17 at 21: 14 Ondansetron HCl (Zofran Inj) 4 mg Q6H PRN IV NAUSEA AND/OR VOMITING; Start 03/27 at 21:30 Acetaminophen (Tylenol Liquid) 650 mg Q6H PRN PO PAIN LEVEL 1-3 OR FEVER; Start 02/20/17 at 21:30 Morphine Sulfate (morphine) 2 mg Q4H PRN IV PAIN LEVEL 7-10 Last administered on 02/20/17 22:17; Admin Dose 2 MG; Start 02/20/17 at 21:30 Lorazepam (Ativan) 1 mg Q2H PRN IV ANXIETY; Start 02/20/17 at 21:30 Magnesium Hydroxide 30 ml 30 ml DAILY PRN PO CONSTIPATION; Start 02/20/17 at 21:30 Meropenem/Sodium Chloride 50 ml @ 200 mls/hr Q12 IVPB Last administered on 10:41; Admin Dose 200 MLS/HR; Start 02/20/17 at 22:00 Vancomycin HCl/ Dextrose/Water (Vancocin/D5W) 150 ml @ 75 mls/hr Q24H IVPB ; Start 02/21/17 at 13:00 Atorvastatin Calcium 40 mg 40 mg QHS PO ; Start 02/21/17 at 21:00 Fentanyl (Sublimaze) 100 ml @ 2.5 mls/hr TITRATE IV Last administered on 02/21 08:56; Admin Dose 2.5 MLS/HR; Start 02/21/17 at 09:00 Famotidine (Pepcid) 20 mg HS GTB ; Start 02/21/17 at 21:00 Amiodarone HCl (Cordarone) 100 mg DAILY PO Last administered on 02/21/17 09: 53; Admin Dose 100 MG; Start 02/21/17 at 09:30 Warfarin Sodium (Coumadin) 1 mg DAILY PO ; Start 02/21/17 at 09:30; Status Future Hold Miscellaneous Information [facility] This patient sadler... PRN PRN XX WOUND CARE; Start 02/21/17 at 10:00 JEMIMA PAZ MD Feb 21, 2017 11:51
[2017-02-21] MEDS ORDERED: VANCOMYCIN 750 MG in DEXTROSE 5% 150 ML IVPB SCH (13:00)
--- NOTE | 2017-02-21 13:31 | CONS ---
DATE OF ADMISSION: 02/20/2017 DATE OF CONSULTATION: 02/21/2017 CONSULTATION: Infectious Disease. REASON FOR CONSULTATION: Antibiotic management. HISTORY OF PRESENT ILLNESS: Amanda Weir is an 86-year-old female with a history of CVA who comes in with septic shock and is being seen for antibiotic management. Her past problems include: 1. History of CVA. 2. Mitral valve repair. 3. Left buttock ulcer. 4. Worsening altered mentation. The patient was sent into the emergency room and was noted to be hypoxic and unresponsive. She was intubated for airway protection. She was in isolation in the assisted and has been treated for ESBL UTI. The patient presented to the ER in atrial fibrillation with rapid ventricular response an d a heart rate of 129. Chest x-ray showed left lower lobe pneumonia. CT scan of the brain shows ex tensive microvascular chronic changes and chronic infarcts in the right upper lobe and right cerebel lar hemisphere. On admission, her white count was 17.4, H and H of 12.7 and 39.8, platelet count 27 5,000. BUN and creatinine 32/1.13. PAST MEDICAL HISTORY: Operations as outlined. FAMILY HISTORY: Noncontributory. SOCIAL HISTORY: She does not smoke, drink or abuse drugs. ALLERGIES: NONE TO PENICILLIN, SULFA OR FOODS. MEDICATIONS: As per chart. REVIEW OF SYSTEMS: Unobtainable. PHYSICAL EXAMINATION: GENERAL: The patient is intubated, unresponsive, in no acute distress. VITAL SIGNS: Stable. She is afebrile. SKIN: Without generalized rash. She has a left buttock ulcer. HEENT: Within normal limits. Head: Atraumatic. Eyes: Right pupil is dilated and unresponsive to l ight. Left pupil is responsive. She is intubated on a respirator. NECK: Supple. LYMPH NODES: None palpable. CHEST: Decreased breath sounds at the bases, intubated and unresponsive. SKIN: Without generalized rash. She has left buttock ulcer. HEART: Tachycardic without murmur or gallop. ABDOMEN: Soft, nontender, without organosplenomegaly or masses. EXTREMITIES: Without cyanosis, clubbing, or edema. RECTAL AND GENITAL: Deferred. NEUROLOGIC: No focal neurological abnormalities. She has a history of CVA in the past and also kaitlin ral valve repair. Her chest x-ray shows a left IJ venous line. 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 CT scan of the brain, no acute in tracranial pathology. Chest x-ray again shows left basilar pneumonia, small bilateral pleural effus ions, endotracheal tube and left central venous line. Abdominal ultrasound, free fluid in the abdo men, small benign left renal cyst. IMPRESSION AND PLAN: The patient is currently in septic shock. She has pneumonia, probably aspira tion. She has a wound on the left buttock. Of note, is the fact that her liver function tests are also abnormal with an AST of 1442, ALT 1506 consistent with shock liver. Her lactic acid was 4.0 on admission. Her urine was negative for nitrite and leukocyte esterase. I will dictate my findings to the hospitalist. I concur with the use of vancomycin and meropenem at this point. Dictated By: HEMANT LUNA MD, JD/NTS Conf#: [id number] DID#: [id number] CC: HEMANT LUNA MD;*End*
[2017-02-21 13:54] LABS: HEPATITIS B CORE ANTIBODY NEGATIVE (NEGATIVE)
--- NOTE | 2017-02-21 15:50 | RADRPT ---
Echocardiogram Report Patient Name: GILBERTO BEYER Gender: Female Date: 1930 Study Date: 21-Feb-2017 Gas Operations Superintendent: Jb Malave [facility] Location: [address] Ref. Physician: JAMEEL GIRARD Quality: Adequate Procedures: Transthoracic echocardiogram with complete 2D, M-Mode, and doppler examination. Indications: Shock. 2D/M Mode Doppler Measurement Value Normal Ranges Measurement Value Normal Ranges LVIDd 2D 4.4 3.5 - 5.6 cm [facility] Vmax 0.4 cm2 LVIDs 2D 3.3 2.1 - 4.1 cm [facility] VTI 0.5 cm2 FS 2D 24.8 % AV Mean Sumeet 2.0 m/sec LVPWd 2D 1.8 0.6 - 1.1 cm AV Mean PG 20.0 mmHg IVSd 2D 1.8 0.6 - 1.1 cm AV Peak Sumeet 3.3 m/sec IVS/LVPW 2D 1.0 AV Peak PG 44.0 mmHg AoR Diam 2D 2.4 2.0 - 3.7 cm AV VTI 51.1 cm LA/Ao 2D 2 0 - 1 LVOT Mean Sumeet 0.5 m/sec EDV 2D 86.9 cm3 LVOT Mean PG 1.0 mmHg ESV 2D 36.9 cm3 LVOT Peak Sumeet 0.8 m/sec LA Dimen 2D 4.6 2.3 - 4.0 cm LVOT Peak PG 2.0 mmHg LVOT Diam 1.5 cm LVOT VTI 14.8 cm LVOT Area 1.8 cm2 MV PHT 145.0 msec MV Peak Sumeet 3.0 m/sec MV Peak PG 35.0 mmHg MV Mean Sumeet 2.0 m/sec MV Mean PG 18.0 mmHg MV Decel [place]oyah 6 MV PHT Peak Sumeet 3.0 m/sec MV PHT 145.0 msec MV VTI 112.0 cm MVA PHT 1.5 cm2 MVA VTI 0.2 cm TR Peak Sumete 4.6 m/sec TR Peak PG 86.0 mmHg RVSP 96.0 mmHg Findings Left Ventricle: Normal left ventricular cavity size. Severe concentric left ventricular hypertrophy. Mild global left ventricular systolic dysfunction. Ejection fraction is visually estimated at 40 %. Right Ventricle: Normal right ventricular size. Severe right ventricular systolic dysfunction. Left Atrium: There is moderate enlargement of left atrium. Right Atrium: There is moderate enlargement of right atrium. Mitral Valve: Mitral valve leaflets appear severely thickened. Severe mitral annular calcification. Mild mitral valve regurgitation. Severe mitral stenosis. Mitral valve Max Velocity 2.96 m/sec. MaxPG 35.00 mmHg. MeanPG 18.00 mmHg. Mitral Valve Area by PHT1.52 cm2. Aortic Valve: Aortic valve not well visualized. Mild to moderate aortic stenosis. Aortic valve Max velocity 3.30 m/sec. Max PG 44.00 mmHg. Mean PG 20.00 mmHg. Aortic cusps appear moderately calcified. Mild aortic valve regurgitation. Tricuspid Valve: Estimated peak PA systolic pressure 96 mmHg. Tricuspid valve appears mildly thickened. There is moderate tricuspid regurgitation. Pulmonic Valve: Normal pulmonic valve appearance. There is trace pulmonic regurgitation. Pericardium: Normal pericardium with no significant pericardial effusion. Left pleural effusion seen. Aorta: Normal aortic root. IVC: Dilated IVC without respiratory collapse, however, patient on ventilator. Conclusions 1.Normal left ventricular cavity size. Severe concentric left ventricular hypertrophy. Mild global left ventricular systolic dysfunction. Ejection fraction is visually estimated at 40 %. 2.There is moderate enlargement of left atrium. 3.There is moderate enlargement of right atrium. 4.Mitral valve leaflets appear severely thickened. Severe mitral annular calcification. Mild mitral valve regurgitation. Severe mitral stenosis. Mitral valve Max Velocity 2.96 m/sec. MaxPG 35.00 mmHg. MeanPG 18.00 mmHg. Mitral Valve Area by PHT1.52 cm2. 5.Aortic valve not well visualized. Mild to moderate aortic stenosis. Aortic valve Max velocity 3.30 m/sec. Max PG 44.00 mmHg. Mean PG 20.00 mmHg. Aortic cusps appear moderately calcified. Mild aortic valve regurgitation. 6.Estimated peak PA systolic pressure 96 mmHg. Tricuspid valve appears mildly thickened. There is moderate tricuspid regurgitation. 7.Dilated IVC without respiratory collapse, however, patient on ventilator. Electronically Signed By: Erwin Rivero 21-Feb-2017 15:49:41 -0800 Patient Name: GILBERTO BEYER Study Date: 21-Feb-2017 [id number]
[2017-02-21] MEDS: ATORVASTATIN 40 MG TAB PO SCH (21:35)
[2017-02-21] MEDS: FAMOTIDINE 20 MG TAB GTB SCH (21:35)
[2017-02-21] MEDS ORDERED: DILTIAZEM 25 MG INJ IV ONE (23:00)
[2017-02-22] VITALS (50 sets, daily range): BP systolic 95–173; BP diastolic 31–111; PULSE 73–159; RESP 17–23
[2017-02-22] MEDS ORDERED: METOPROLOL 5 MG INJ IV ONE (05:00)
[2017-02-22 05:14] LABS: BASOPHIL # 0.1 10^3/ul (0.0-0.1); BASOPHILS % 0.5 % (0.0-2.0); EOSINOPHILS % 0.2 % (0.0-7.0); HEMOGLOBIN 11.8 g/dl (12.0-16.0); LYMPHOCYTES # 0.8 10^3/ul (0.8-2.9); LYMPHOCYTES % 5.7 % (15.0-51.0); MEAN CORPUSCULAR HEMOGLOBIN 30.5 pg (29.0-33.0); MEAN CORPUSCULAR HGB CONC 31.1 g/dl (32.0-37.0); MEAN CORPUSCULAR VOLUME 98.2 fl (82.0-101.0); MEAN PLATELET VOLUME 11.8 fl (7.4-10.4); MONOCYTE # 0.7 10^3/ul (0.3-0.9); MONOCYTES % 4.9 % (0.0-11.0); NEUTROPHIL # 12.6 10^3/ul (1.6-7.5); NEUTROPHILS % 88.1 % (39.0-77.0); NUCLEATED RED BLOOD CELLS% 0.1 /100WBC (0.0-0.0); PLATELET COUNT 278 10^3/UL (140-415); RED BLOOD COUNT 3.87 10^6/ul (4.20-5.40); RED CELL DISTRIBUTION WIDTH 15.9 % (11.5-14.5); WHITE BLOOD COUNT 14.3 10^3/ul (4.8-10.8)
[2017-02-22 05:26] LABS: ALBUMIN 2.7 g/dl (3.3-4.9); BILIRUBIN,INDIRECT 0.5 mg/dl (0-1.1); BILIRUBIN,TOTAL 0.5 mg/dl (0.2-1.3); TOTAL PROTEIN 5.6 g/dl (6.1-8.1)
[2017-02-22 05:28] LABS: INR 3.87; PROTIME 38.6 Sec (12.2-14.2)
[2017-02-22 05:29] LABS: CALCIUM 8.2 mg/dl (8.4-10.2); CREATININE 1.08 mg/dl (0.44-1.00); PHOSPHORUS 3.3 mg/dl (2.5-4.9); POTASSIUM 4.1 mmol/L (3.5-5.1)
[2017-02-22] MEDS: LEVOTHYROXINE 150 MCG TAB PO SCH (06:08)
[2017-02-22 06:32] LABS: AADO2 Arterial 48.4 mmHg (7.0-24.0); Allen Test ACCEPTAB; Arterial Base Excess -6.2 mmol/L (-3.0-3); Arterial COHb 0.1 % (0.0-3.0); Arterial Fraction of Oxyhgb 98.3 % (93.0-99.0); Arterial HCO3 17.1 mmol/L (22.0-26.0); Arterial MetHb 0.1 % (0.0-1.5); Arterial Total Hemglobin 12.7 g/dl (12.0-18.0); MODE VENT - AC
--- NOTE | 2017-02-22 08:16 | RADRPT ---
PROCEDURE: XR Chest. CLINICAL INDICATION: Respiratory failure TECHNIQUE: An AP view of the chest was obtained. COMPARISON: Chest x-ray dated 02/20/2017 FINDINGS: The endotracheal tube tip is approximately 1.8 cm above the cristian. The tip of the enteric tube ex tends below the left diaphragm. There is a left internal jugular central venous catheter with tip in the region of the left brachiocephalic vein. There is prominence of the interstitial and central pulmonary vascular markings with small bilatera l pleural effusions. No focal airspace opacification or pneumothorax is seen. The cardiomediastina l silhouette is mildly enlarged . Calcifications are seen within the aortic arch. There are post ca rdiac surgery changes with sternotomy wires and prosthetic valve . The osseous structures demonstrat e senescent changes. IMPRESSION: 1. Findings suggestive of pulmonary vascular congestion with small bilateral pleural effusions, mi ldly increased when compared to the prior examination. 2. Mild cardiomegaly and aortic atherosclerosis. 3. Tubes and lines, as described above. RPTAT: HH .Amara Manriquez MD, MD Date Time Electronically viewed and signed by .Amara Manriquez MD, on 02/22/2017 08:15 .G/
[2017-02-22] MEDS: MEROPENEM 500MG/50 ML (PMX) 50 ML IVPB SCH ×2 (09:16→20:39)
[2017-02-22] MEDS: AMIODARONE 200 MG TAB PO SCH (09:16)
--- NOTE | 2017-02-22 09:42 | PN ---
Date/Time of Note Date/Time of Note DATE: 02/22/17 TIME: 09:42 Assessment/Plan Lines/Catheters IV [facility]from [facility] Central Line Urinary Cath still in place: Yes Exam/Review of Systems Vital Signs Vitals Vital Signs Date Time Temp Pulse Resp B/P Pulse Ox O2 Delivery O2 Flow Rate FiO2 02/22/17 08:30 88 19 132/52 100 02/22/17 08:05 30 02/22/17 08:00 98.8 Mechanical Ventilator 02/20/17 18:50 4.0 Intake and Output 02/21/17 02/21/17 02/22/17 15:00 23:00 07:00 Intake Total 838 ml 1047 ml 607 ml Output Total 95 ml 91 ml 87 ml Balance 743 ml 956 ml 520 ml Results Result Diagram: 02/22/17 0400 02/22/17 0400 Results 24 hrs Laboratory Tests Test 02/21/17 10:24 02/21/17 12:00 02/21/17 14:00 02/22/17 04:00 Ammonia < 9 L Acetaminophen Level < 10.0 L Hepatitis B Surface Antigen NEGATIVE Hepatitis B Surface Antibody NEGATIVE Hepatitis B Core Total Antibody NEGATIVE Hepatitis C Antibody NEGATIVE Urine Random Creatinine 101.96 Urine Total Protein 28.0 H White Blood Count 14.3 H Red Blood Count 3.87 L Hemoglobin 11.8 L Hematocrit 38.0 Mean Corpuscular Volume 98.2 Mean Corpuscular Hemoglobin 30.5 Mean Corpuscular Hemoglobin Concent 31.1 L Red Cell Distribution Width 15.9 H Platelet Count 278 # Mean Platelet Volume 11.8 H Neutrophils % 88.1 H Lymphocytes % 5.7 L Monocytes % 4.9 Eosinophils % 0.2 Basophils % 0.5 Nucleated Red Blood Cells % 0.1 H Neutrophils # 12.6 H Lymphocytes # 0.8 Monocytes # 0.7 Eosinophils # 0.0 Basophils # 0.1 Nucleated Red Blood Cells # 0.0 Prothrombin Time 38.6 H Prothrombin Time Ratio 3.0 INR International Normalized Ratio 3.87 Sodium Level 143 Potassium Level 4.1 Chloride Level 115 H Carbon Dioxide Level 19 L Anion Gap 13 Blood Urea Nitrogen 33 H Creatinine 1.08 H Glucose Level 117 Calcium Level 8.2 L Phosphorus Level 3.3 Magnesium Level 2.0 Total Bilirubin 0.5 Direct Bilirubin 0.00 Indirect Bilirubin 0.5 Aspartate Amino Transf (AST/SGOT) 460 H Alanine Aminotransferase (ALT/SGPT) 1110 H Alkaline Phosphatase 75 Total Protein 5.6 L Albumin 2.7 L Test 02/22/17 07:00 Blood Gas Specimen Source Blood arterial Arterial Blood Date Drawn 02/22/2017 6:23:42 AM Arterial Blood pH (Temp corrected) 7.406 Arterial Blood pCO2 (Temp correct) 27.8 L Arterial Blood pO2 (Temp corrected) 132.8 H Arterial Blood HCO3 17.1 L Arterial Blood Base Excess -6.2 L Arterial Blood Oxygen Saturation 98.5 Simon Test ACCEPTAB Arterial Blood Gas Puncture Site Right Radial Arterial Blood Carboxyhemoglobin 0.1 Arterial Blood Methemoglobin 0.1 Blood Gas A-a O2 Differential 48.4 H Oxyhemoglobin Percent 98.3 Total Hemoglobin 12.7 Blood Gas Temperature 37.0 Blood Gas Respiration Rate 18.0 Blood Gas Modality VENT - AC FiO2 30.0 Blood Gas Tidal Volume 450.0 Blood Gas Low PEEP Setting 5.0 Blood Gas Notified Whom CD Blood Gas Notified Time 02/22/2017 6:31:40 AM Medications Medications Current Medications Dextrose/Sodium Chloride (D5-1/2ns) 1,000 ml @ 100 mls/hr Q10H IV Last administered on 02/21/17 21:36; Admin Dose 100 MLS/HR; Start 02/20/17 at 21: 14 Ondansetron HCl (Zofran Inj) 4 mg Q6H PRN IV NAUSEA AND/OR VOMITING; Start 03/27 at 21:30 Acetaminophen (Tylenol Liquid) 650 mg Q6H PRN PO PAIN LEVEL 1-3 OR FEVER; Start 02/20/17 at 21:30 Morphine Sulfate (morphine) 2 mg Q4H PRN IV PAIN LEVEL 7-10 Last administered on 02/20/17 22:17; Admin Dose 2 MG; Start 02/20/17 at 21:30 Magnesium Hydroxide 30 ml 30 ml DAILY PRN PO CONSTIPATION; Start 02/20/17 at 21:30 Meropenem/Sodium Chloride 50 ml @ 200 mls/hr Q12 IVPB Last administered on 09:16; Admin Dose 200 MLS/HR; Start 02/20/17 at 22:00 Vancomycin HCl/ Dextrose/Water (Vancocin/D5W) 150 ml @ 75 mls/hr Q24H IVPB Last administered on 02/21/17 13:25; Admin Dose 75 MLS/HR; Start 02/21/17 at 13:00 Atorvastatin Calcium 40 mg 40 mg QHS PO Last administered on 02/21/17 21:35; Admin Dose 40 MG; Start 02/21/17 at 21:00 Fentanyl (Sublimaze) 100 ml @ 2.5 mls/hr TITRATE IV Last administered on 02/21 08:56; Admin Dose 2.5 MLS/HR; Start 02/21/17 at 09:00 Famotidine (Pepcid) 20 mg HS GTB Last administered on 02/21/17 21:35; Admin Dose 20 MG; Start 02/21/17 at 21:00 Amiodarone HCl (Cordarone) 100 mg DAILY PO Last administered on 02/22/17 09: 16; Admin Dose 100 MG; Start 02/21/17 at 09:30 Warfarin Sodium (Coumadin) 1 mg DAILY PO ; Start 02/21/17 at 09:30; Status Future Hold Miscellaneous Information (Pending Santyl Order For Wound Care) This patient sadler... PRN PRN XX WOUND CARE; Start 02/21/17 at 10:00 Miscellaneous Information (*Rx Drug Level Order Reminder*) VANCOMYCIN TROUGH ON 02/09... ONCE ONCE XX ; Start 02/23/17 at 12:00; Stop 02/23/17 at 12:01 JEMIMA PAZ MD Feb 22, 2017 09:42
--- NOTE | 2017-02-22 09:48 | PN ---
Date/Time of Note Date/Time of Note DATE: 02/22/17 TIME: 09:42 Assessment/Plan VTE Prophylaxis VTE Prophylaxis Intervention: SCD's Lines/Catheters IV Catheter Type (from Nrsg): Central Line Central line still needed: No Urinary Cath still in place: Yes Reason Cath still needed: other (indicate) (critically ill) Assessment/Plan Assessment/Plan 86 yo F with advanced dementia, AFib, hypothyroid admitted for acute hypoxic respiratory and sepsis, source unclear. Also complicated by shock liver. PLAN #sepsis: dc vanc as no evidence of MRSA. cont meropenem pending further culture data. f/u blood cultures ordered. Possible that +GPR is contaminant (jesica if bacillus/propionibacterium acnes) -f/u blood cultures ordered #hypoxic respiratory failure: wean vent as tolerated, possibly today #hypernatremia: likely from decreased PO and insensible losses from sepsis. cont IVFs #KAVYA: likely prerenal from sepsis. cont IVFs #pressure ulcer: wound care cs #proteinuria: check urine p/c ~0.3 g proteinuria per day #transaminitis: improving. viral hepatitis seros negative #AFib: cont home amio and warfarin (as feasible based on INR goal 2-3) #hypothyroid: cont home Synthroid #prophx: DVT, GI while on vent critical care time: 30 minutes Subjective 24 Hr Interval Summary Free Text/Dictation Much more awake this AM. Still altered but much less somnolent. Exam/Review of Systems Vital Signs Vitals Vital Signs Date Time Temp Pulse Resp B/P Pulse Ox O2 Delivery O2 Flow Rate FiO2 02/22/17 08:30 88 19 132/52 100 02/22/17 08:05 30 02/22/17 08:00 98.8 Mechanical Ventilator 02/20/17 18:50 4.0 Intake and Output 02/21/17 02/21/17 02/22/17 15:00 23:00 07:00 Intake Total 838 ml 1047 ml 607 ml Output Total 95 ml 91 ml 87 ml Balance 743 ml 956 ml 520 ml Exam nad no mrg lungs with decreased breath sounds bl bases abd soft no edema Results Result Diagram: 02/22/17 0400 02/22/17 0400 Results 24 hrs Laboratory Tests Test 02/21/17 10:24 02/21/17 12:00 02/21/17 14:00 02/22/17 04:00 Ammonia < 9 L Acetaminophen Level < 10.0 L Hepatitis B Surface Antigen NEGATIVE Hepatitis B Surface Antibody NEGATIVE Hepatitis B Core Total Antibody NEGATIVE Hepatitis C Antibody NEGATIVE Urine Random Creatinine 101.96 Urine Total Protein 28.0 H White Blood Count 14.3 H Red Blood Count 3.87 L Hemoglobin 11.8 L Hematocrit 38.0 Mean Corpuscular Volume 98.2 Mean Corpuscular Hemoglobin 30.5 Mean Corpuscular Hemoglobin Concent 31.1 L Red Cell Distribution Width 15.9 H Platelet Count 278 # Mean Platelet Volume 11.8 H Neutrophils % 88.1 H Lymphocytes % 5.7 L Monocytes % 4.9 Eosinophils % 0.2 Basophils % 0.5 Nucleated Red Blood Cells % 0.1 H Neutrophils # 12.6 H Lymphocytes # 0.8 Monocytes # 0.7 Eosinophils # 0.0 Basophils # 0.1 Nucleated Red Blood Cells # 0.0 Prothrombin Time 38.6 H Prothrombin Time Ratio 3.0 INR International Normalized Ratio 3.87 Sodium Level 143 Potassium Level 4.1 Chloride Level 115 H Carbon Dioxide Level 19 L Anion Gap 13 Blood Urea Nitrogen 33 H Creatinine 1.08 H Glucose Level 117 Calcium Level 8.2 L Phosphorus Level 3.3 Magnesium Level 2.0 Total Bilirubin 0.5 Direct Bilirubin 0.00 Indirect Bilirubin 0.5 Aspartate Amino Transf (AST/SGOT) 460 H Alanine Aminotransferase (ALT/SGPT) 1110 H Alkaline Phosphatase 75 Total Protein 5.6 L Albumin 2.7 L Test 02/22/17 07:00 Blood Gas Specimen Source Blood arterial Arterial Blood Date Drawn 02/22/2017 6:23:42 AM Arterial Blood pH (Temp corrected) 7.406 Arterial Blood pCO2 (Temp correct) 27.8 L Arterial Blood pO2 (Temp corrected) 132.8 H Arterial Blood HCO3 17.1 L Arterial Blood Base Excess -6.2 L Arterial Blood Oxygen Saturation 98.5 Simon Test ACCEPTAB Arterial Blood Gas Puncture Site Right Radial Arterial Blood Carboxyhemoglobin 0.1 Arterial Blood Methemoglobin 0.1 Blood Gas A-a O2 Differential 48.4 H Oxyhemoglobin Percent 98.3 Total Hemoglobin 12.7 Blood Gas Temperature 37.0 Blood Gas Respiration Rate 18.0 Blood Gas Modality VENT - AC FiO2 30.0 Blood Gas Tidal Volume 450.0 Blood Gas Low PEEP Setting 5.0 Blood Gas Notified Whom CD Blood Gas Notified Time 02/22/2017 6:31:40 AM Medications Medications Current Medications Dextrose/Sodium Chloride (D5-1/2ns) 1,000 ml @ 100 mls/hr Q10H IV Last administered on 02/21/17 21:36; Admin Dose 100 MLS/HR; Start 02/20/17 at 21: 14 Ondansetron HCl (Zofran Inj) 4 mg Q6H PRN IV NAUSEA AND/OR VOMITING; Start 03/27 at 21:30 Acetaminophen (Tylenol Liquid) 650 mg Q6H PRN PO PAIN LEVEL 1-3 OR FEVER; Start 02/20/17 at 21:30 Morphine Sulfate (morphine) 2 mg Q4H PRN IV PAIN LEVEL 7-10 Last administered on 02/20/17 22:17; Admin Dose 2 MG; Start 02/20/17 at 21:30 Magnesium Hydroxide 30 ml 30 ml DAILY PRN PO CONSTIPATION; Start 02/20/17 at 21:30 Meropenem/Sodium Chloride 50 ml @ 200 mls/hr Q12 IVPB Last administered on 09:16; Admin Dose 200 MLS/HR; Start 02/20/17 at 22:00 Vancomycin HCl/ Dextrose/Water (Vancocin/D5W) 150 ml @ 75 mls/hr Q24H IVPB Last administered on 02/21/17 13:25; Admin Dose 75 MLS/HR; Start 02/21/17 at 13:00 Atorvastatin Calcium 40 mg 40 mg QHS PO Last administered on 02/21/17 21:35; Admin Dose 40 MG; Start 02/21/17 at 21:00 Fentanyl (Sublimaze) 100 ml @ 2.5 mls/hr TITRATE IV Last administered on 02/21 08:56; Admin Dose 2.5 MLS/HR; Start 02/21/17 at 09:00 Famotidine (Pepcid) 20 mg HS GTB Last administered on 02/21/17 21:35; Admin Dose 20 MG; Start 02/21/17 at 21:00 Amiodarone HCl (Cordarone) 100 mg DAILY PO Last administered on 02/22/17 09: 16; Admin Dose 100 MG; Start 02/21/17 at 09:30 Warfarin Sodium (Coumadin) 1 mg DAILY PO ; Start 02/21/17 at 09:30; Status Future Hold Miscellaneous Information (Pending Santyl Order For Wound Care) This patient sadler... PRN PRN XX WOUND CARE; Start 02/21/17 at 10:00 Miscellaneous Information (*Rx Drug Level Order Reminder*) VANCOMYCIN TROUGH ON 02/09... ONCE ONCE XX ; Start 02/23/17 at 12:00; Stop 02/23/17 at 12:01 JEMIMA PAZ MD Feb 22, 2017 09:48
[2017-02-22] MEDS: DEXTROSE 5%-0.45% NACL 1,000 ML IV SCH ×2 (09:51→19:22)
--- NOTE | 2017-02-22 09:59 | CONS ---
Date/Time of Note Date/Time of Note DATE: 02/22/17 TIME: 09:56 Consult Date/Type/Reason Admit Date/Time Feb 20, 2017 at 21:09 Initial Consult Date Type of Consultation: Pulmonary Subjective More alert today. Opens eyes not following commands attempt to pull out endotracheal tube. Remains hemodynamically stable. Objective Vital Signs Date Time Temp Pulse Resp B/P Pulse Ox O2 Delivery O2 Flow Rate FiO2 02/22/17 08:30 88 19 132/52 100 02/22/17 08:05 30 02/22/17 08:00 98.8 Mechanical Ventilator 02/20/17 18:50 4.0 Intake and Output 02/21/17 02/21/17 02/22/17 15:00 23:00 07:00 Intake Total 838 ml 1047 ml 707 ml Output Total 95 ml 91 ml 97 ml Balance 743 ml 956 ml 610 ml Exam PHYSICAL EXAMINATION: GENERAL: Elderly-appearing lady, intubated on mechanical ventilation, appears comfortable at rest, no acute distress. VITAL SIGNS: HEENT: Dry mucous membranes. Pupils equal and reactive to light. CARDIAC: S1, S2, no added sounds or murmurs. CHEST: Diminished air entry bilaterally. ABDOMEN: Soft, nontender. No guarding or rebound. EXTREMITIES: No cyanosis, clubbing, 1+ edema. NEUROLOGIC: Generalized weakness. Results/Medications Result Diagram: 02/22/17 0400 02/22/17 0400 Results 24 hrs Ultrasound abdomen IMPRESSION: 1. Small amount of free fluid in the abdomen. 2. Right pleural effusion. 3. Small benign left renal cyst. 4. Possible small nonobstructing bilateral renal calculi. 5. Otherwise unremarkable ultrasound of the abdomen and retroperitoneum. Laboratory Tests Test 02/21/17 10:24 02/21/17 12:00 02/21/17 14:00 02/22/17 04:00 Ammonia < 9 L Acetaminophen Level < 10.0 L Hepatitis B Surface Antigen NEGATIVE Hepatitis B Surface Antibody NEGATIVE Hepatitis B Core Total Antibody NEGATIVE Hepatitis C Antibody NEGATIVE Urine Random Creatinine 101.96 Urine Total Protein 28.0 H White Blood Count 14.3 H Red Blood Count 3.87 L Hemoglobin 11.8 L Hematocrit 38.0 Mean Corpuscular Volume 98.2 Mean Corpuscular Hemoglobin 30.5 Mean Corpuscular Hemoglobin Concent 31.1 L Red Cell Distribution Width 15.9 H Platelet Count 278 # Mean Platelet Volume 11.8 H Neutrophils % 88.1 H Lymphocytes % 5.7 L Monocytes % 4.9 Eosinophils % 0.2 Basophils % 0.5 Nucleated Red Blood Cells % 0.1 H Neutrophils # 12.6 H Lymphocytes # 0.8 Monocytes # 0.7 Eosinophils # 0.0 Basophils # 0.1 Nucleated Red Blood Cells # 0.0 Prothrombin Time 38.6 H Prothrombin Time Ratio 3.0 INR International Normalized Ratio 3.87 Sodium Level 143 Potassium Level 4.1 Chloride Level 115 H Carbon Dioxide Level 19 L Anion Gap 13 Blood Urea Nitrogen 33 H Creatinine 1.08 H Glucose Level 117 Calcium Level 8.2 L Phosphorus Level 3.3 Magnesium Level 2.0 Total Bilirubin 0.5 Direct Bilirubin 0.00 Indirect Bilirubin 0.5 Aspartate Amino Transf (AST/SGOT) 460 H Alanine Aminotransferase (ALT/SGPT) 1110 H Alkaline Phosphatase 75 Total Protein 5.6 L Albumin 2.7 L Test 02/22/17 07:00 Blood Gas Specimen Source Blood arterial Arterial Blood Date Drawn 02/22/2017 6:23:42 AM Arterial Blood pH (Temp corrected) 7.406 Arterial Blood pCO2 (Temp correct) 27.8 L Arterial Blood pO2 (Temp corrected) 132.8 H Arterial Blood HCO3 17.1 L Arterial Blood Base Excess -6.2 L Arterial Blood Oxygen Saturation 98.5 Simon Test ACCEPTAB Arterial Blood Gas Puncture Site Right Radial Arterial Blood Carboxyhemoglobin 0.1 Arterial Blood Methemoglobin 0.1 Blood Gas A-a O2 Differential 48.4 H Oxyhemoglobin Percent 98.3 Total Hemoglobin 12.7 Blood Gas Temperature 37.0 Blood Gas Respiration Rate 18.0 Blood Gas Modality VENT - AC FiO2 30.0 Blood Gas Tidal Volume 450.0 Blood Gas Low PEEP Setting 5.0 Blood Gas Notified Whom CD Blood Gas Notified Time 02/22/2017 6:31:40 AM Medications Current Medications Dextrose/Sodium Chloride (D5-1/2ns) 1,000 ml @ 100 mls/hr Q10H IV Last administered on 02/22/17t 09:51; Admin Dose 100 MLS/HR; Start 02/20/17 at 21: 14 Ondansetron HCl (Zofran Inj) 4 mg Q6H PRN IV NAUSEA AND/OR VOMITING; Start 03/27 at 21:30 Acetaminophen (Tylenol Liquid) 650 mg Q6H PRN PO PAIN LEVEL 1-3 OR FEVER; Start 02/20/17 at 21:30 Morphine Sulfate (morphine) 2 mg Q4H PRN IV PAIN LEVEL 7-10 Last administered on 02/20/17 22:17; Admin Dose 2 MG; Start 02/20/17 at 21:30 Magnesium Hydroxide 30 ml 30 ml DAILY PRN PO CONSTIPATION; Start 02/20/17 at 21:30 Meropenem/Sodium Chloride (Merrem 500mg/50 ml(Pmx)) 50 ml @ 200 mls/hr Q12 IVPB Last administered on 02/22/17 09:16; Admin Dose 200 MLS/HR; Start 02/20 at 22:00 Atorvastatin Calcium (Lipitor) 40 mg QHS PO Last administered on 02/21/17 21: 35; Admin Dose 40 MG; Start 02/21/17 at 21:00 Famotidine (Pepcid) 20 mg HS GTB Last administered on 02/21/17 21:35; Admin Dose 20 MG; Start 02/21/17 at 21:00 Amiodarone HCl (Cordarone) 100 mg DAILY PO Last administered on 02/22/17 09: 16; Admin Dose 100 MG; Start 02/21/17 at 09:30 Warfarin Sodium (Coumadin) 1 mg DAILY PO ; Start 02/21/17 at 09:30; Status Future Hold Miscellaneous Information (Pending Santyl Order For Wound Care) This patient sadler... PRN PRN XX WOUND CARE; Start 02/21/17 at 10:00 Miscellaneous Information (*Rx Drug Level Order Reminder*) VANCOMYCIN TROUGH ON 02/09... ONCE ONCE XX ; Start 02/23/17 at 12:00; Stop 02/23/17 at 12:01 Collagenase (Santyl) 1 applic DAILY TOP ; Start 02/22/17 at 10:00 Ascorbic Acid (Vitamin C) 500 mg DAILY PO ; Start 02/23/17 at 09:00 Calcium/Vitamin D (Oyster Shell/ Vit-D (500/200)) 1 tab DAILY PO ; Start at 09:00 Docusate Sodium (Colace) 100 mg BID PO ; Start 02/22/17 at 21:00 Ferrous Sulfate (Ferrous Sulfate (Ec)) 325 mg DAILY PO ; Start 02/23/17 at 09: 00 Furosemide (Lasix) 20 mg DAILY PO ; Start 02/23/17 at 09:00 Multivitamins Therapeutic (Theragran) 1 tab DAILY PO ; Start 02/23/17 at 09:00 Assessment/Plan Chief Complaint/Hosp Course IMPRESSION AND PLAN: 1. Hypoxemic respiratory failure, possibly secondary to healthcare-associated pneumonia. 2. Improving metabolic acidosis and renal insufficiency 3. Resolving delirium. 4. Improving transaminitis. Ultrasound liver shows no obstructive disease. The patient will require: 1. Continue volume resuscitation. 2. CPAP trial hopefully safely extubate. 3. Broad-spectrum antibiotics for community-acquired pneumonia. 4. Hold Coumadin. 5. Obtain prior notes. 6. Deep venous thrombosis and gastrointestinal prophylaxis. Family conference regarding goals of care is overall prognosis is very poor. Palliative care approach postextubation may be more appropriate. Problems: NOEMY BERTRAND MD, [facility] Feb 22, 2017 09:59
[2017-02-22] MEDS: FENTAnyl (DRIP) 1000 mcg/100mL 100 ML IV SCH ×2 (10:57→17:31)
--- NOTE | 2017-02-22 14:22 | PN ---
DATE: 02/22/2017 SUBJECTIVE: Patient remains intubated, awake, in no distress. She failed weaning trials this morni ng. VITAL SIGNS: Temperature 98.1, pulse 90, respirations 18, blood pressure 109/52, saturation 100% on FIO2 of 30. LABORATORY: WBC 14.3, H and H 11.8 and 38, platelets 278, neutrophils 88.1, BUN 33, creatinine 1.08 . MICROBIOLOGY: Blood culture growing gram-positive rods. Urine culture negative. Nares swab negati ve. DIAGNOSTICS: Chest x-ray this morning revealed pulmonary vascular congestion with bilateral pleural effusions, mild cardiomegaly. CT of the brain on admission revealed no acute intracranial patholog y. Abdominal ultrasound revealed possible small nonobstructing bilateral renal calculi, small amoun t of free fluid, right pleural effusion. INDWELLINGS: Endotracheal tube, NG tube, Najera catheter, left IJ triple-lumen catheter. ANTIMICROBIALS: The patient is on IV vancomycin and meropenem. PHYSICAL EXAMINATION: GENERAL: This is a chronically ill-appearing, fragile, elderly woman who is intubated, in no distre ss. HEAD: Atraumatic, normocephalic. Sclerae anicteric. Buccal mucosa dry. NECK: Supple. CHEST: Rise symmetrical. Breath sounds diminished to bases. HEART: S1, S2. ABDOMEN: Soft. Bowel tones hypoactive. EXTREMITIES: Without cyanosis. ASSESSMENT: 1. Sepsis, status post shock. 2. Gram-positive yesenia bacteremia consistent with contaminant. 3. Acute hypoxemic respiratory failure, possible pneumonia. 4. Transaminitis. 5. History of cerebrovascular accident. PLAN: The patient is hemodynamically stable. Code status was changed to DNR. She is on appropriat e antimicrobials. We can probably discontinue vancomycin as the culture is consistent with contamin ant. I will wait for sputum culture. Continue vent management as per pulmonary. Dictated By: SHALOM ESTRADA COOK CHILL TECHNICIAN for HEMANT LUNA MD NI/NTS Conf#: [id number] DID#: [id number] CC: JAMEEL GIRARD MD;*EndCC*
[2017-02-22] MEDS: COLLAGENASE 30 GM TUBE TOP SCH (15:43)
[2017-02-22] MEDS: ATORVASTATIN 40 MG TAB PO SCH (20:37)
[2017-02-22] MEDS: FAMOTIDINE 20 MG TAB GTB SCH (20:37)
[2017-02-22] MEDS: DOCUSATE SODIUM 100 MG CAP PO SCH (20:37)
[2017-02-23] VITALS (35 sets, daily range): BP systolic 94–161; BP diastolic 32–84; PULSE 54–120; RESP 18–21
[2017-02-23] MEDS: METOPROLOL 5 MG INJ IV PRN ×3 (02:43→18:25)
[2017-02-23 05:10] LABS: ABNORMAL IP MESSAGE 1; BASOPHIL # 0.1 10^3/ul (0.0-0.1); BASOPHILS % 0.5 % (0.0-2.0); EOSINOPHILS % 0.1 % (0.0-7.0); HEMATOCRIT 32.5 % (37.0-47.0); HEMOGLOBIN 10.3 g/dl (12.0-16.0); LYMPHOCYTES # 0.6 10^3/ul (0.8-2.9); LYMPHOCYTES % 3.9 % (15.0-51.0); MEAN CORPUSCULAR HEMOGLOBIN 31.1 pg (29.0-33.0); MEAN CORPUSCULAR HGB CONC 31.7 g/dl (32.0-37.0); MEAN CORPUSCULAR VOLUME 98.2 fl (82.0-101.0); MEAN PLATELET VOLUME 12.1 fl (7.4-10.4); MONOCYTE # 0.7 10^3/ul (0.3-0.9); MONOCYTES % 4.9 % (0.0-11.0); NEUTROPHIL # 13.4 10^3/ul (1.6-7.5); NEUTROPHILS % 89.9 % (39.0-77.0); PLATELET COUNT 205 10^3/UL (140-415); RED BLOOD COUNT 3.31 10^6/ul (4.20-5.40); RED CELL DISTRIBUTION WIDTH 15.9 % (11.5-14.5); WHITE BLOOD COUNT 14.9 10^3/ul (4.8-10.8)
[2017-02-23 05:25] LABS: POSITIVE DIFF @See below
[2017-02-23 05:41] LABS: CREATININE 0.96 mg/dl (0.44-1.00); PHOSPHORUS 2.8 mg/dl (2.5-4.9); POTASSIUM 3.7 mmol/L (3.5-5.1)
[2017-02-23 05:51] LABS: INR 4.22; PROTIME 41.4 Sec (12.2-14.2); PT RATIO 3.2
[2017-02-23] MEDS: LEVOTHYROXINE 150 MCG TAB PO SCH (06:18)
[2017-02-23] MEDS: DEXTROSE 5%-0.45% NACL 1,000 ML IV SCH ×2 (06:23→19:00)
--- NOTE | 2017-02-23 08:00 | RADRPT ---
PROCEDURE: XR Chest. CLINICAL INDICATION: Shortness of breath TECHNIQUE: An AP view of the chest was obtained. COMPARISON: Chest x-ray dated 02/22/2017 FINDINGS: The endotracheal tube tip is approximately 1.9 cm above the cristian. The tip of the enteric tube ex tends below the left diaphragm. There is left internal jugular central venous catheter with tip near the junction of the left brachiocephalic vein and SVC. There is prominence of the interstitial markings. There are small bilateral pleural effusions. No p neumothorax is seen. The cardiomediastinal silhouette is mildly enlarged . Calcifications are seen within the aortic arch. There are post cardiac surgery changes with sternotomy wires and prostheti c valve. The osseous structures demonstrate senescent changes. Bilateral breast implants are in esvin ce. IMPRESSION: 1. Mild prominence of the interstitial markings, may reflect mild underlying interstitial edema or chronic lung changes. No significant interval change. 2. Small bilateral pleural effusions, also unchanged. 3. Mild cardiomegaly and aortic atherosclerosis. 4. Tubes and lines, as described above. RPTAT: HH .Amaar Manriquez MD, MD Date Time Electronically viewed and signed by .Amara Manriquez MD, MD on 02/23/2017 07:59 .G/
[2017-02-23 08:11] LABS: AADO2 Arterial 39.7 mmHg (7.0-24.0); Allen Test ACCEPTAB; Arterial COHb 0.4 % (0.0-3.0); Arterial Fraction of Oxyhgb 98.3 % (93.0-99.0); Arterial HCO3 17.5 mmol/L (22.0-26.0); Arterial MetHb 0 % (0.0-1.5); Arterial Total Hemglobin 12.3 g/dl (12.0-18.0); MODE VENT - AC
[2017-02-23] MEDS: morphine 2 MG INJ IV PRN (08:21)
[2017-02-23] MEDS: FERROUS SULFATE (EC) 325 MG TAB PO SCH (08:32)
[2017-02-23] MEDS: MULTIVITAMINS THERAPEUTIC TAB PO SCH (08:32)
[2017-02-23] MEDS: CALCIUM/VITAMIN D (500/200) TAB PO SCH (08:32)
[2017-02-23] MEDS: ASCORBIC ACID 500 MG TAB PO SCH (08:32)
[2017-02-23] MEDS: DOCUSATE SODIUM 100 MG CAP PO SCH ×2 (08:33→20:20)
[2017-02-23] MEDS: AMIODARONE 200 MG TAB PO SCH (08:33)
[2017-02-23] MEDS: FUROSEMIDE 20 MG TAB PO SCH (08:34)
[2017-02-23] MEDS: COLLAGENASE 30 GM TUBE TOP SCH (09:15)
[2017-02-23] MEDS: MEROPENEM 500MG/50 ML (PMX) 50 ML IVPB SCH ×2 (09:15→20:20)
--- NOTE | 2017-02-23 09:30 | PN ---
Date/Time of Note Date/Time of Note DATE: 02/23/17 TIME: 09:30 Assessment/Plan VTE Prophylaxis VTE Prophylaxis Intervention: SCD's Lines/Catheters IV Catheter Type (from Nrsg): Central Line Central line still needed: No Urinary Cath still in place: Yes Reason Cath still needed: other (indicate) (critically ill) Assessment/Plan Assessment/Plan 86 yo F with advanced dementia, AFib, hypothyroid admitted for acute hypoxic respiratory and sepsis, source unclear. Also complicated by shock liver. PLAN #sepsis: cont meropenem pending further culture data. f/u blood cultures ordered. GPR in blood consistent with contaminant -respiratory culture in process #hypoxic respiratory failure: wean vent as tolerated, possibly today? #KAVYA:RESOLVED #pressure ulcer: wound care cs #proteinuria: urine p/c ~0.3 g proteinuria per day-->outpatient follow up. consider repeat UA closer to discharge #transaminitis: shock liver. improving. viral hepatitis seros negative #AFib: cont home amio and warfarin (as feasible based on INR goal 2-3) #chronic systolic HF: resume lasix/bb as tolerated #hypothyroid: cont home Synthroid #prophx: DVT, GI while on vent critical care time: 30 minutes spoke with son yesterday at length. He stated he would not want mom subjected to CPR, in precontemplative state regarding overall goals of care (comfort focus etc). Tentative family meeting today? Exam/Review of Systems Vital Signs Vitals Vital Signs Date Time Temp Pulse Resp B/P Pulse Ox O2 Delivery O2 Flow Rate FiO2 02/23/17 05:25 77 18 100 30 02/23/17 03:00 118/69 Mechanical Ventilator 02/23/17 00:00 98.0 02/20/17 18:50 4.0 Intake and Output 02/22/17 02/22/17 02/23/17 14:59 22:59 06:59 Intake Total 844.0 ml 607.5 ml 1008 ml Output Total 140 ml 137 ml 155 ml Balance 704.0 ml 470.5 ml 853 ml Results Result Diagram: 02/23/17 0432 02/23/17 0432 Results 24 hrs Laboratory Tests Test 02/23/17 04:32 02/23/17 07:00 White Blood Count 14.9 H Red Blood Count 3.31 L Hemoglobin 10.3 L Hematocrit 32.5 L Mean Corpuscular Volume 98.2 Mean Corpuscular Hemoglobin 31.1 Mean Corpuscular Hemoglobin Concent 31.7 L Red Cell Distribution Width 15.9 H Platelet Count 205 # Mean Platelet Volume 12.1 H Neutrophils % 89.9 H Lymphocytes % 3.9 L Monocytes % 4.9 Eosinophils % 0.1 Basophils % 0.5 Nucleated Red Blood Cells % 0.0 Neutrophils # 13.4 H Lymphocytes # 0.6 L Monocytes # 0.7 Eosinophils # 0.0 Basophils # 0.1 Nucleated Red Blood Cells # 0.0 Prothrombin Time 41.4 H Prothrombin Time Ratio 3.2 INR International Normalized Ratio 4.22 Sodium Level 141 Potassium Level 3.7 Chloride Level 115 H Carbon Dioxide Level 21 Anion Gap 9 Blood Urea Nitrogen 29 H Creatinine 0.96 Glucose Level 116 Calcium Level 8.0 L Phosphorus Level 2.8 Magnesium Level 2.0 Blood Gas Specimen Source Blood arterial Arterial Blood Date Drawn 02/23/2017 7:35:26 AM Arterial Blood pH (Temp corrected) 7.399 Arterial Blood pCO2 (Temp correct) 29.0 L Arterial Blood pO2 (Temp corrected) 140.1 H Arterial Blood HCO3 17.5 L Arterial Blood Base Excess -6.0 L Arterial Blood Oxygen Saturation 98.7 Simon Test ACCEPTAB Arterial Blood Gas Puncture Site Right Radial Arterial Blood Carboxyhemoglobin 0.4 Arterial Blood Methemoglobin 0 Blood Gas A-a O2 Differential 39.7 H Oxyhemoglobin Percent 98.3 Total Hemoglobin 12.3 Blood Gas Temperature 37.0 Blood Gas Respiration Rate 18.0 Blood Gas Actual Respiration Rate 18 Blood Gas Modality VENT - AC FiO2 30.0 Blood Gas Tidal Volume 450.0 Blood Gas Low PEEP Setting 5.0 Blood Gas Notified Whom JLD Blood Gas Notified Time 02/23/2017 8:11:10 AM Medications Medications Current Medications Dextrose/Sodium Chloride (D5-1/2ns) 1,000 ml @ 100 mls/hr Q10H IV Last administered on 02/23/17t 06:23; Admin Dose 100 MLS/HR; Start 02/20/17 at 21: 14 Ondansetron HCl (Zofran Inj) 4 mg Q6H PRN IV NAUSEA AND/OR VOMITING; Start 03/27 at 21:30 Acetaminophen (Tylenol Liquid) 650 mg Q6H PRN PO PAIN LEVEL 1-3 OR FEVER; Start 02/20/17 at 21:30 Morphine Sulfate (morphine) 2 mg Q4H PRN IV PAIN LEVEL 7-10 Last administered on 02/23/17 08:21; Admin Dose 2 MG; Start 02/20/17 at 21:30 Magnesium Hydroxide 30 ml 30 ml DAILY PRN PO CONSTIPATION; Start 02/20/17 at 21:30 Meropenem/Sodium Chloride (Merrem 500mg/50 ml(Pmx)) 50 ml @ 200 mls/hr Q12 IVPB Last administered on 02/22/17 20:39; Admin Dose 200 MLS/HR; Start 02/20 at 22:00 Atorvastatin Calcium (Lipitor) 40 mg QHS PO Last administered on 02/22/17 20: 37; Admin Dose 40 MG; Start 02/21/17 at 21:00 Famotidine (Pepcid) 20 mg HS GTB Last administered on 02/22/17 20:37; Admin Dose 20 MG; Start 02/21/17 at 21:00 Amiodarone HCl (Cordarone) 100 mg DAILY PO Last administered on 02/23/17 08: 33; Admin Dose 100 MG; Start 02/21/17 at 09:30 Warfarin Sodium (Coumadin) 1 mg DAILY PO ; Start 02/21/17 at 09:30; Status Future Hold Miscellaneous Information (Pending Santyl Order For Wound Care) This patient sadler... PRN PRN XX WOUND CARE; Start 02/21/17 at 10:00 Collagenase (Santyl) 1 applic DAILY TOP Last administered on 02/22/17 15:43; Admin Dose 1 APPLIC; Start 02/22/17 at 10:00 Ascorbic Acid (Vitamin C) 500 mg DAILY PO Last administered on 02/23/17 08:32 ; Admin Dose 500 MG; Start 02/23/17 at 09:00 Calcium/Vitamin D (Oyster Shell/ Vit-D (500/200)) 1 tab DAILY PO Last administered on 02/23/17 08:32; Admin Dose 1 TAB; Start 02/23/17 at 09:00 Docusate Sodium (Colace) 100 mg BID PO Last administered on 02/22/17 20:37; Admin Dose 100 MG; Start 02/22/17 at 21:00 Ferrous Sulfate (Ferrous Sulfate (Ec)) 325 mg DAILY PO Last administered on 08:32; Admin Dose 325 MG; Start 02/23/17 at 09:00 Furosemide (Lasix) 20 mg DAILY PO Last administered on 02/23/17 08:34; Admin Dose 20 MG; Start 02/23/17 at 09:00 Multivitamins Therapeutic 1 tab 1 tab DAILY PO Last administered on 02/23/17 08:32; Admin Dose 1 TAB; Start 02/23/17 at 09:00 Fentanyl (Sublimaze) 100 ml @ 2.5 mls/hr TITRATE IV Last administered on 02/22 17:31; Admin Dose 2.5 MLS/HR; Start 02/22/17 at 10:00 Metoprolol Tartrate (Lopressor) 5 mg Q6H PRN IV ELEVATED HEART RATE Last administered on 02/23/17 02:43; Admin Dose 5 MG; Start 02/23/17 at 02:40 JEMIMA PAZ MD Feb 23, 2017 09:30
[2017-02-23 10:16] LABS: ALBUMIN 2.4 g/dl (3.3-4.9); BILIRUBIN,INDIRECT 0.5 mg/dl (0-1.1); BILIRUBIN,TOTAL 0.5 mg/dl (0.2-1.3); TOTAL PROTEIN 5.3 g/dl (6.1-8.1)
--- NOTE | 2017-02-23 11:16 | CONS ---
Date/Time of Note Date/Time of Note DATE: 02/23/17 TIME: 11:14 Consult Date/Type/Reason Admit Date/Time Feb 20, 2017 at 21:09 Type of Consultation: Pulmonary Subjective Patient failed CPAP trial yesterday. This morning she appears anxious and confused. On minimal sedation. Objective Vital Signs Date Time Temp Pulse Resp B/P Pulse Ox O2 Delivery O2 Flow Rate FiO2 02/23/17 08:00 113 02/23/17 05:25 18 100 30 02/23/17 03:00 118/69 Mechanical Ventilator 02/23/17 00:00 98.0 02/20/17 18:50 4.0 Intake and Output 02/22/17 02/22/17 02/23/17 14:59 22:59 06:59 Intake Total 844.0 ml 607.5 ml 1008 ml Output Total 140 ml 137 ml 155 ml Balance 704.0 ml 470.5 ml 853 ml Exam PHYSICAL EXAMINATION: GENERAL: Elderly-appearing lady, intubated on mechanical ventilation, anxious with endotracheal tube in place. VITAL SIGNS: HEENT: Dry mucous membranes. Pupils equal and reactive to light. CARDIAC: S1, S2, no added sounds or murmurs. CHEST: Diminished air entry bilaterally. ABDOMEN: Soft, nontender. No guarding or rebound. EXTREMITIES: No cyanosis, clubbing, 1+ edema. NEUROLOGIC: Generalized weakness. Results/Medications Result Diagram: 02/23/17 0432 02/23/17 0432 Results 24 hrs Laboratory Tests Test 02/23/17 04:32 02/23/17 07:00 White Blood Count 14.9 H Red Blood Count 3.31 L Hemoglobin 10.3 L Hematocrit 32.5 L Mean Corpuscular Volume 98.2 Mean Corpuscular Hemoglobin 31.1 Mean Corpuscular Hemoglobin Concent 31.7 L Red Cell Distribution Width 15.9 H Platelet Count 205 # Mean Platelet Volume 12.1 H Neutrophils % 89.9 H Lymphocytes % 3.9 L Monocytes % 4.9 Eosinophils % 0.1 Basophils % 0.5 Nucleated Red Blood Cells % 0.0 Neutrophils # 13.4 H Lymphocytes # 0.6 L Monocytes # 0.7 Eosinophils # 0.0 Basophils # 0.1 Nucleated Red Blood Cells # 0.0 Prothrombin Time 41.4 H Prothrombin Time Ratio 3.2 INR International Normalized Ratio 4.22 Sodium Level 141 Potassium Level 3.7 Chloride Level 115 H Carbon Dioxide Level 21 Anion Gap 9 Blood Urea Nitrogen 29 H Creatinine 0.96 Glucose Level 116 Calcium Level 8.0 L Phosphorus Level 2.8 Magnesium Level 2.0 Total Bilirubin 0.5 Direct Bilirubin 0.00 Indirect Bilirubin 0.5 Aspartate Amino Transf (AST/SGOT) 188 H Alanine Aminotransferase (ALT/SGPT) 745 H Alkaline Phosphatase 64 Total Protein 5.3 L Albumin 2.4 L Blood Gas Specimen Source Blood arterial Arterial Blood Date Drawn 02/23/2017 7:35:26 AM Arterial Blood pH (Temp corrected) 7.399 Arterial Blood pCO2 (Temp correct) 29.0 L Arterial Blood pO2 (Temp corrected) 140.1 H Arterial Blood HCO3 17.5 L Arterial Blood Base Excess -6.0 L Arterial Blood Oxygen Saturation 98.7 Simon Test ACCEPTAB Arterial Blood Gas Puncture Site Right Radial Arterial Blood Carboxyhemoglobin 0.4 Arterial Blood Methemoglobin 0 Blood Gas A-a O2 Differential 39.7 H Oxyhemoglobin Percent 98.3 Total Hemoglobin 12.3 Blood Gas Temperature 37.0 Blood Gas Respiration Rate 18.0 Blood Gas Actual Respiration Rate 18 Blood Gas Modality VENT - AC FiO2 30.0 Blood Gas Tidal Volume 450.0 Blood Gas Low PEEP Setting 5.0 Blood Gas Notified Whom JLD Blood Gas Notified Time 02/23/2017 8:11:10 AM Medications Current Medications Dextrose/Sodium Chloride (D5-1/2ns) 1,000 ml @ 100 mls/hr Q10H IV Last administered on 02/23/17 06:23; Admin Dose 100 MLS/HR; Start 02/20/17 at 21: 14 Ondansetron HCl (Zofran Inj) 4 mg Q6H PRN IV NAUSEA AND/OR VOMITING; Start 03/27 at 21:30 Acetaminophen (Tylenol Liquid) 650 mg Q6H PRN PO PAIN LEVEL 1-3 OR FEVER; Start 02/20/17 at 21:30 Morphine Sulfate (morphine) 2 mg Q4H PRN IV PAIN LEVEL 7-10 Last administered on 02/23/17 08:21; Admin Dose 2 MG; Start 02/20/17 at 21:30 Magnesium Hydroxide 30 ml 30 ml DAILY PRN PO CONSTIPATION; Start 02/20/17 at 21:30 Meropenem/Sodium Chloride (Merrem 500mg/50 ml(Pmx)) 50 ml @ 200 mls/hr Q12 IVPB Last administered on 02/23/17 09:15; Admin Dose 200 MLS/HR; Start 02/20 at 22:00 Atorvastatin Calcium (Lipitor) 40 mg QHS PO Last administered on 02/22/17 20: 37; Admin Dose 40 MG; Start 02/21/17 at 21:00 Famotidine (Pepcid) 20 mg HS GTB Last administered on 02/22/17 20:37; Admin Dose 20 MG; Start 02/21/17 at 21:00 Amiodarone HCl (Cordarone) 100 mg DAILY PO Last administered on 02/23/17 08: 33; Admin Dose 100 MG; Start 02/21/17 at 09:30 Warfarin Sodium (Coumadin) 1 mg DAILY PO ; Start 02/21/17 at 09:30; Status Future Hold Miscellaneous Information (Pending Santyl Order For Wound Care) This patient sadler... PRN PRN XX WOUND CARE; Start 02/21/17 at 10:00 Collagenase (Santyl) 1 applic DAILY TOP Last administered on 02/23/17 09:15; Admin Dose 1 APPLIC; Start 02/22/17 at 10:00 Ascorbic Acid (Vitamin C) 500 mg DAILY PO Last administered on 02/23/17 08:32 ; Admin Dose 500 MG; Start 02/23/17 at 09:00 Calcium/Vitamin D (Oyster Shell/ Vit-D (500/200)) 1 tab DAILY PO Last administered on 02/23/17 08:32; Admin Dose 1 TAB; Start 02/23/17 at 09:00 Docusate Sodium (Colace) 100 mg BID PO Last administered on 02/22/17 20:37; Admin Dose 100 MG; Start 02/22/17 at 21:00 Ferrous Sulfate (Ferrous Sulfate (Ec)) 325 mg DAILY PO Last administered on 08:32; Admin Dose 325 MG; Start 02/23/17 at 09:00 Furosemide (Lasix) 20 mg DAILY PO Last administered on 02/23/17 08:34; Admin Dose 20 MG; Start 02/23/17 at 09:00 Multivitamins Therapeutic 1 tab 1 tab DAILY PO Last administered on 02/23/17 08:32; Admin Dose 1 TAB; Start 02/23/17 at 09:00 Fentanyl (Sublimaze) 100 ml @ 2.5 mls/hr TITRATE IV Last administered on 02/22 17:31; Admin Dose 2.5 MLS/HR; Start 02/22/17 at 10:00 Metoprolol Tartrate 5 mg 5 mg Q6H PRN IV ELEVATED HEART RATE Last administered on 02/23/17 02:43; Admin Dose 5 MG; Start 02/23/17 at 02:40 Midazolam HCl (Versed) 50 ml @ 1 mls/hr TITRATE PRN IV SEDATION; Start at 11:30; Status UNV Assessment/Plan Chief Complaint/Hosp Course IMPRESSION AND PLAN: 1. Hypoxemic respiratory failure, possibly secondary to healthcare-associated pneumonia. 2. Improving metabolic acidosis and renal insufficiency 3. Delirium possible underlying dementia. 4. Improving transaminitis. Ultrasound liver shows no obstructive disease. The patient will require: 1. Continue IV fluids 2. CPAP trial if patient's neurological status stabilizes overall extremely poor prognosis. 3. Broad-spectrum antibiotics for community-acquired pneumonia. 4. Hold Coumadin. 5. Obtain prior notes. 6. Deep venous thrombosis and gastrointestinal prophylaxis. Comfort care may be more appropriate. Overall prognosis is very poor. Problems: NOEMY BERTRAND MD, [facility] Feb 23, 2017 11:16
[2017-02-23] MEDS ORDERED: MIDAZOLAM (DRIP) 50 mg/50 mL 50 ML IV PRN (11:30)
--- NOTE | 2017-02-23 12:09 | CONS ---
Date/Time of Note Date/Time of Note DATE: 02/23/17 TIME: 12:07 Consult Date/Type/Reason Admit Date/Time Feb 20, 2017 at 21:09 Initial Consult Date Type of Consultation: ID Objective Vital Signs Date Time Temp Pulse Resp B/P Pulse Ox O2 Delivery O2 Flow Rate FiO2 02/23/17 11:05 76 18 100 30 02/23/17 11:00 101/40 02/23/17 10:00 Mechanical Ventilator 02/23/17 08:00 98.2 02/20/17 18:50 4.0 Intake and Output 02/22/17 02/22/17 02/23/17 15:00 23:00 07:00 Intake Total 845.0 ml 805.0 ml 708 ml Output Total 145 ml 141 ml 136 ml Balance 700.0 ml 664.0 ml 572 ml Results/Medications Result Diagram: 02/23/17 0432 02/23/17 0432 Results 24 hrs Laboratory Tests Test 02/23/17 04:32 02/23/17 07:00 White Blood Count 14.9 H Red Blood Count 3.31 L Hemoglobin 10.3 L Hematocrit 32.5 L Mean Corpuscular Volume 98.2 Mean Corpuscular Hemoglobin 31.1 Mean Corpuscular Hemoglobin Concent 31.7 L Red Cell Distribution Width 15.9 H Platelet Count 205 # Mean Platelet Volume 12.1 H Neutrophils % 89.9 H Lymphocytes % 3.9 L Monocytes % 4.9 Eosinophils % 0.1 Basophils % 0.5 Nucleated Red Blood Cells % 0.0 Neutrophils # 13.4 H Lymphocytes # 0.6 L Monocytes # 0.7 Eosinophils # 0.0 Basophils # 0.1 Nucleated Red Blood Cells # 0.0 Prothrombin Time 41.4 H Prothrombin Time Ratio 3.2 INR International Normalized Ratio 4.22 Sodium Level 141 Potassium Level 3.7 Chloride Level 115 H Carbon Dioxide Level 21 Anion Gap 9 Blood Urea Nitrogen 29 H Creatinine 0.96 Glucose Level 116 Calcium Level 8.0 L Phosphorus Level 2.8 Magnesium Level 2.0 Total Bilirubin 0.5 Direct Bilirubin 0.00 Indirect Bilirubin 0.5 Aspartate Amino Transf (AST/SGOT) 188 H Alanine Aminotransferase (ALT/SGPT) 745 H Alkaline Phosphatase 64 Total Protein 5.3 L Albumin 2.4 L Blood Gas Specimen Source Blood arterial Arterial Blood Date Drawn 02/23/2017 7:35:26 AM Arterial Blood pH (Temp corrected) 7.399 Arterial Blood pCO2 (Temp correct) 29.0 L Arterial Blood pO2 (Temp corrected) 140.1 H Arterial Blood HCO3 17.5 L Arterial Blood Base Excess -6.0 L Arterial Blood Oxygen Saturation 98.7 Simon Test ACCEPTAB Arterial Blood Gas Puncture Site Right Radial Arterial Blood Carboxyhemoglobin 0.4 Arterial Blood Methemoglobin 0 Blood Gas A-a O2 Differential 39.7 H Oxyhemoglobin Percent 98.3 Total Hemoglobin 12.3 Blood Gas Temperature 37.0 Blood Gas Respiration Rate 18.0 Blood Gas Actual Respiration Rate 18 Blood Gas Modality VENT - AC FiO2 30.0 Blood Gas Tidal Volume 450.0 Blood Gas Low PEEP Setting 5.0 Blood Gas Notified Whom JLD Blood Gas Notified Time 02/23/2017 8:11:10 AM Medications Current Medications Dextrose/Sodium Chloride (D5-1/2ns) 1,000 ml @ 100 mls/hr Q10H IV Last administered on 02/23/17 06:23; Admin Dose 100 MLS/HR; Start 02/20/17 at 21: 14 Ondansetron HCl (Zofran Inj) 4 mg Q6H PRN IV NAUSEA AND/OR VOMITING; Start 03/27 at 21:30 Acetaminophen (Tylenol Liquid) 650 mg Q6H PRN PO PAIN LEVEL 1-3 OR FEVER; Start 02/20/17 at 21:30 Morphine Sulfate (morphine) 2 mg Q4H PRN IV PAIN LEVEL 7-10 Last administered on 02/23/17 08:21; Admin Dose 2 MG; Start 02/20/17 at 21:30 Magnesium Hydroxide 30 ml 30 ml DAILY PRN PO CONSTIPATION; Start 02/20/17 at 21:30 Meropenem/Sodium Chloride (Merrem 500mg/50 ml(Pmx)) 50 ml @ 200 mls/hr Q12 IVPB Last administered on 02/23/17 09:15; Admin Dose 200 MLS/HR; Start 02/20 at 22:00 Atorvastatin Calcium (Lipitor) 40 mg QHS PO Last administered on 02/22/17 20: 37; Admin Dose 40 MG; Start 02/21/17 at 21:00 Famotidine (Pepcid) 20 mg HS GTB Last administered on 02/22/17 20:37; Admin Dose 20 MG; Start 02/21/17 at 21:00 Amiodarone HCl (Cordarone) 100 mg DAILY PO Last administered on 02/23/17 08: 33; Admin Dose 100 MG; Start 02/21/17 at 09:30 Warfarin Sodium (Coumadin) 1 mg DAILY PO ; Start 02/21/17 at 09:30; Status Future Hold Miscellaneous Information (Pending Santyl Order For Wound Care) This patient sadler... PRN PRN XX WOUND CARE; Start 02/21/17 at 10:00 Collagenase (Santyl) 1 applic DAILY TOP Last administered on 02/23/17 09:15; Admin Dose 1 APPLIC; Start 02/22/17 at 10:00 Ascorbic Acid (Vitamin C) 500 mg DAILY PO Last administered on 02/23/17 08:32 ; Admin Dose 500 MG; Start 02/23/17 at 09:00 Calcium/Vitamin D (Oyster Shell/ Vit-D (500/200)) 1 tab DAILY PO Last administered on 02/23/17 08:32; Admin Dose 1 TAB; Start 02/23/17 at 09:00 Docusate Sodium (Colace) 100 mg BID PO Last administered on 02/22/17 20:37; Admin Dose 100 MG; Start 02/22/17 at 21:00 Ferrous Sulfate (Ferrous Sulfate (Ec)) 325 mg DAILY PO Last administered on 08:32; Admin Dose 325 MG; Start 02/23/17 at 09:00 Furosemide (Lasix) 20 mg DAILY PO Last administered on 02/23/17 08:34; Admin Dose 20 MG; Start 02/23/17 at 09:00 Multivitamins Therapeutic 1 tab 1 tab DAILY PO Last administered on 02/23/17 08:32; Admin Dose 1 TAB; Start 02/23/17 at 09:00 Fentanyl (Sublimaze) 100 ml @ 2.5 mls/hr TITRATE IV Last administered on 02/22 17:31; Admin Dose 2.5 MLS/HR; Start 02/22/17 at 10:00 Metoprolol Tartrate 5 mg 5 mg Q6H PRN IV ELEVATED HEART RATE Last administered on 02/23/17 08:45; Admin Dose 5 MG; Start 02/23/17 at 02:40 Midazolam HCl (Versed) 50 ml @ 1 mls/hr TITRATE PRN IV SEDATION; Start at 11:30 Assessment/Plan Chief Complaint/Hosp Course SUBJECTIVE: Patient remains intubated, in no distress. She failed weaning trials yesterday. MICROBIOLOGY: Blood culture growing gram-positive rods/Staph. Urine culture negative. Nares swab negative. Sputum cx pending INDWELLINGS: Endotracheal tube, NG tube, Najera catheter, left IJ triple-lumen catheter. ANTIMICROBIALS: The patient is on Meropenem. PHYSICAL EXAMINATION: GENERAL: This is a chronically ill-appearing, fragile, elderly woman who is intubated, in no distress. HEAD: Atraumatic, normocephalic. Sclerae anicteric. Buccal mucosa dry. NECK: Supple. CHEST: Rise symmetrical. Breath sounds diminished to bases. HEART: S1, S2. ABDOMEN: Soft. Bowel tones hypoactive. EXTREMITIES: Without cyanosis. ASSESSMENT: 1. S/p septic shock. 2. Gram-positive yesenia bacteremia consistent with contaminant. 3. Acute hypoxemic respiratory failure, possible pneumonia. 4. Transaminitis. 5. History of cerebrovascular accident. 6. DNR PLAN: The patient is hemodynamically stable, leukocytosis persists, on Merrem for possible PNA, pending sputum cx, f/u pulmonary rec-s [facility] staff Problems: SHALOM ESTRADA NP Feb 23, 2017 12:09
[2017-02-23] MEDS: FENTAnyl (DRIP) 1000 mcg/100mL 100 ML IV SCH (13:32)
[2017-02-23] MEDS: ATORVASTATIN 40 MG TAB PO SCH (20:20)
[2017-02-23] MEDS: FAMOTIDINE 20 MG TAB GTB SCH (20:20)
[2017-02-24] VITALS (34 sets, daily range): BP systolic 112–173; BP diastolic 51–133; PULSE 75–140; RESP 15–22
[2017-02-24] MEDS: METOPROLOL 5 MG INJ IV PRN (00:15)
[2017-02-24] MEDS: FENTAnyl (DRIP) 1000 mcg/100mL 100 ML IV SCH ×3 (00:15→23:32)
[2017-02-24] MEDS: DEXTROSE 5%-0.45% NACL 1,000 ML IV SCH (04:38)
[2017-02-24 05:21] LABS: BASOPHIL # 0.1 10^3/ul (0.0-0.1); BASOPHILS % 0.4 % (0.0-2.0); EOSINOPHILS % 0.2 % (0.0-7.0); HEMATOCRIT 37.2 % (37.0-47.0); HEMOGLOBIN 11.8 g/dl (12.0-16.0); LYMPHOCYTES # 0.8 10^3/ul (0.8-2.9); LYMPHOCYTES % 5.8 % (15.0-51.0); MEAN CORPUSCULAR HEMOGLOBIN 31.1 pg (29.0-33.0); MEAN CORPUSCULAR HGB CONC 31.7 g/dl (32.0-37.0); MEAN CORPUSCULAR VOLUME 97.9 fl (82.0-101.0); MONOCYTE # 0.8 10^3/ul (0.3-0.9); MONOCYTES % 5.4 % (0.0-11.0); NEUTROPHIL # 12.5 10^3/ul (1.6-7.5); NEUTROPHILS % 87.6 % (39.0-77.0); NUCLEATED RED BLOOD CELLS% 0.1 /100WBC (0.0-0.0); PLATELET COUNT 247 10^3/UL (140-415); WHITE BLOOD COUNT 14.2 10^3/ul (4.8-10.8)
[2017-02-24 05:39] LABS: INR 3.98; PROTIME 39.5 Sec (12.2-14.2); PT RATIO 3.1
[2017-02-24 05:53] LABS: CALCIUM 7.8 mg/dl (8.4-10.2); CREATININE 0.92 mg/dl (0.44-1.00); POTASSIUM 3.8 mmol/L (3.5-5.1)
[2017-02-24] MEDS: LEVOTHYROXINE 150 MCG TAB PO SCH (07:05)
--- NOTE | 2017-02-24 07:32 | RADRPT ---
PROCEDURE: XR Chest. CLINICAL INDICATION: Shortness of breath TECHNIQUE: 2 AP views of the chest were obtained COMPARISON: Chest x-ray dated 02/23/2017 FINDINGS: The endotracheal tube tip is approximately 3.0 cm above the cristian. The tip of the enteric tube ext ends below the left diaphragm. There is left internal jugular central venous catheter with tip near the junction of the left brachiocephalic vein and SVC. There is prominence of the interstitial markings. There are bibasilar interstitial opacities small bilateral pleural effusions. No pneumothorax is seen. The cardiomediastinal silhouette is mildly e nlarged . Calcifications are seen within the aortic arch. There are post cardiac surgery changes wi th sternotomy wires and prosthetic valve. The osseous structures demonstrate senescent changes. Charli ateral breast implants are in place. IMPRESSION: 1. Mild prominence of the interstitial markings, may reflect mild underlying interstitial edema or chronic lung changes. There are bibasilar interstitial opacities, mildly increased when compared to the prior examination which may reflect atelectasis, edema, and / or pneumonia. 2. Small bilateral pleural effusions, not significantly changed. 3. Mild cardiomegaly and aortic atherosclerosis. 4. Tubes and lines, as described above. RPTAT: HH .Amara Manriquez MD, MD Date Time Electronically viewed and signed by .Amara Manriquez MD, on 02/24/2017 07:32 .G/
[2017-02-24] MEDS: FERROUS SULFATE (EC) 325 MG TAB PO SCH (08:18)
[2017-02-24] MEDS: CALCIUM/VITAMIN D (500/200) TAB PO SCH (08:18)
[2017-02-24] MEDS: FUROSEMIDE 20 MG TAB PO SCH (08:19)
[2017-02-24] MEDS: MULTIVITAMINS THERAPEUTIC TAB PO SCH (08:19)
[2017-02-24] MEDS: ASCORBIC ACID 500 MG TAB PO SCH (08:19)
[2017-02-24] MEDS: AMIODARONE 200 MG TAB PO SCH (08:19)
[2017-02-24] MEDS: DOCUSATE SODIUM 100 MG CAP PO SCH ×2 (08:20→20:15)
[2017-02-24] MEDS: COLLAGENASE 30 GM TUBE TOP SCH (08:20)
[2017-02-24 08:25] LABS: AADO2 Arterial 72.2 mmHg (7.0-24.0); Allen Test ACCEPTAB; Arterial Base Excess -11.3 mmol/L (-3.0-3); Arterial COHb 0.6 % (0.0-3.0); Arterial HCO3 13.7 mmol/L (22.0-26.0); Arterial MetHb 0.2 % (0.0-1.5); Arterial Total Hemglobin 13.5 g/dl (12.0-18.0); MODE VENT - AC
[2017-02-24 09:37] LABS: AADO2 Arterial 35.2 mmHg (7.0-24.0); Allen Test ACCEPTAB; Arterial Base Excess -9.6 mmol/L (-3.0-3); Arterial COHb 0.2 % (0.0-3.0); Arterial Fraction of Oxyhgb 98.6 % (93.0-99.0); Arterial HCO3 14.6 mmol/L (22.0-26.0); Arterial MetHb 0.1 % (0.0-1.5); Arterial Total Hemglobin 12.9 g/dl (12.0-18.0); MODE VENT - AC
[2017-02-24] MEDS: MEROPENEM 500MG/50 ML (PMX) 50 ML IVPB SCH (09:53)
--- NOTE | 2017-02-24 11:25 | CONS ---
Date/Time of Note Date/Time of Note DATE: 02/24/17 TIME: 11:24 Consult Date/Type/Reason Admit Date/Time Feb 20, 2017 at 21:09 Type of Consultation: Pulm Subjective Eyes open, appears agitated and in distress. Failed CPAP weaning trial. Objective Vital Signs Date Time Temp Pulse Resp B/P Pulse Ox O2 Delivery O2 Flow Rate FiO2 02/24/17 10:00 97 18 115/51 99 Mechanical Ventilator 02/24/17 09:10 30 02/24/17 08:00 98.2 02/20/17 18:50 4.0 Intake and Output 02/23/17 02/23/17 02/24/17 15:00 23:00 07:00 Intake Total 853 ml 371 ml 261 ml Output Total 120 ml 110 ml 95 ml Balance 733 ml 261 ml 166 ml Exam PHYSICAL EXAMINATION: GENERAL: Elderly-appearing lady, intubated on mechanical ventilation, anxious with endotracheal tube in place. VITAL SIGNS: HEENT: Dry mucous membranes. Pupils equal and reactive to light. CARDIAC: S1, S2, no added sounds or murmurs. CHEST: Diminished air entry bilaterally. ABDOMEN: Soft, nontender. No guarding or rebound. EXTREMITIES: No cyanosis, clubbing, 1+ edema. NEUROLOGIC: Generalized weakness. Results/Medications Result Diagram: 02/24/17 0445 02/24/17 0445 Results 24 hrs Laboratory Tests Test 02/24/17 04:45 02/24/17 07:00 02/24/17 09:00 02/24/17 09:47 White Blood Count 14.2 H Red Blood Count 3.80 L Hemoglobin 11.8 L Hematocrit 37.2 Mean Corpuscular Volume 97.9 Mean Corpuscular Hemoglobin 31.1 Mean Corpuscular Hemoglobin Concent 31.7 L Red Cell Distribution Width 16.0 H Platelet Count 247 # Mean Platelet Volume 12.0 H Neutrophils % 87.6 H Lymphocytes % 5.8 L Monocytes % 5.4 Eosinophils % 0.2 Basophils % 0.4 Nucleated Red Blood Cells % 0.1 H Neutrophils # 12.5 H Lymphocytes # 0.8 Monocytes # 0.8 Eosinophils # 0.0 Basophils # 0.1 Nucleated Red Blood Cells # 0.0 Prothrombin Time 39.5 H Prothrombin Time Ratio 3.1 INR International Normalized Ratio 3.98 Sodium Level 140 Potassium Level 3.8 Chloride Level 112 H Carbon Dioxide Level 19 L Anion Gap 13 Blood Urea Nitrogen 25 H Creatinine 0.92 Glucose Level 110 Calcium Level 7.8 L Blood Gas Specimen Source Blood arterial Blood arterial Arterial Blood Date Drawn 02/24/2017 7:50:47 AM 02/24/2017 9:20:47 AM Arterial Blood pH (Temp corrected) 7.295 *L 7.343 L Arterial Blood pCO2 (Temp correct) 28.9 L 27.5 L Arterial Blood pO2 (Temp corrected) 107.7 H 146.4 H Arterial Blood HCO3 13.7 L 14.6 L Arterial Blood Base Excess -11.3 L -9.6 L Arterial Blood Oxygen Saturation 97.8 98.9 Simon Test ACCEPTAB ACCEPTAB Arterial Blood Gas Puncture Site Right Radial Right Radial Arterial Blood Carboxyhemoglobin 0.6 0.2 Arterial Blood Methemoglobin 0.2 0.1 Blood Gas A-a O2 Differential 72.2 H 35.2 H Oxyhemoglobin Percent 97.0 98.6 Total Hemoglobin 13.5 12.9 Blood Gas Temperature 37.0 37.0 Blood Gas Respiration Rate 18.0 18.0 Blood Gas Actual Respiration Rate 28 18 Blood Gas Modality VENT - AC VENT - AC FiO2 30.0 30.0 Blood Gas Tidal Volume 450.0 450.0 Blood Gas Low PEEP Setting 5.0 Blood Gas Critical Value Read Back Jacqueline PURDY RN Blood Gas Notified Whom DENNIS COLLINS Blood Gas Notified Time 02/24/2017 8:24:54 AM 02/24/2017 9:36:39 AM Lactic Acid Level 1.4 Medications Current Medications Ondansetron HCl (Zofran Inj) 4 mg Q6H PRN IV NAUSEA AND/OR VOMITING; Start 03/27 at 21:30 Acetaminophen (Tylenol Liquid) 650 mg Q6H PRN PO PAIN LEVEL 1-3 OR FEVER; Start 02/20/17 at 21:30 Morphine Sulfate (morphine) 2 mg Q4H PRN IV PAIN LEVEL 7-10 Last administered on 02/23/17t 08:21; Admin Dose 2 MG; Start 02/20/17 at 21:30 Magnesium Hydroxide 30 ml 30 ml DAILY PRN PO CONSTIPATION; Start 02/20/17 at 21:30 Meropenem/Sodium Chloride (Merrem 500mg/50 ml(Pmx)) 50 ml @ 200 mls/hr Q12 IVPB Last administered on 02/24/17 09:53; Admin Dose 200 MLS/HR; Start 02/20 at 22:00 Atorvastatin Calcium (Lipitor) 40 mg QHS PO Last administered on 02/23/17 20: 20; Admin Dose 40 MG; Start 02/21/17 at 21:00 Famotidine (Pepcid) 20 mg HS GTB Last administered on 02/23/17 20:20; Admin Dose 20 MG; Start 02/21/17 at 21:00 Amiodarone HCl (Cordarone) 100 mg DAILY PO Last administered on 02/24/17 08: 19; Admin Dose 100 MG; Start 02/21/17 at 09:30 Warfarin Sodium (Coumadin) 1 mg DAILY PO ; Start 02/21/17 at 09:30; Status Future Hold Miscellaneous Information (Pending Santyl Order For Wound Care) This patient sadler... PRN PRN XX WOUND CARE; Start 02/21/17 at 10:00 Collagenase (Santyl) 1 applic DAILY TOP Last administered on 02/24/17 08:20; Admin Dose 1 APPLIC; Start 02/22/17 at 10:00 Ascorbic Acid (Vitamin C) 500 mg DAILY PO Last administered on 02/24/17 08:19 ; Admin Dose 500 MG; Start 02/23/17 at 09:00 Calcium/Vitamin D (Oyster Shell/ Vit-D (500/200)) 1 tab DAILY PO Last administered on 02/24/17 08:18; Admin Dose 1 TAB; Start 02/23/17 at 09:00 Docusate Sodium (Colace) 100 mg BID PO Last administered on 02/23/17 20:20; Admin Dose 100 MG; Start 02/22/17 at 21:00 Ferrous Sulfate (Ferrous Sulfate (Ec)) 325 mg DAILY PO Last administered on 08:18; Admin Dose 325 MG; Start 02/23/17 at 09:00 Furosemide (Lasix) 20 mg DAILY PO Last administered on 02/24/17 08:19; Admin Dose 20 MG; Start 02/23/17 at 09:00 Multivitamins Therapeutic 1 tab 1 tab DAILY PO Last administered on 02/24/17 08:19; Admin Dose 1 TAB; Start 02/23/17 at 09:00 Fentanyl (Sublimaze) 100 ml @ 2.5 mls/hr TITRATE IV Last administered on 02/24 00:15; Admin Dose 7 MLS/HR; Start 02/22/17 at 10:00 Metoprolol Tartrate 5 mg 5 mg Q6H PRN IV ELEVATED HEART RATE Last administered on 02/24/17 00:15; Admin Dose 5 MG; Start 02/23/17 at 02:40 Midazolam HCl 50 ml @ 1 mls/hr TITRATE PRN IV SEDATION; Start 02/23/17 at 11: 30 Sodium Bicarbonate/ Dextrose/Sodium Chloride (Na Bicarb/D5-1/ 2ns) 1,000 ml @ 100 mls/hr Q10H IV ; Start 02/24/17 at 11:00 Assessment/Plan Chief Complaint/Hosp Course IMPRESSION AND PLAN: 1. Hypoxemic respiratory failure, possibly secondary to healthcare-associated pneumonia. 2. Improving metabolic acidosis and renal insufficiency 3. Delirium possible underlying dementia. 4. Improving transaminitis. Ultrasound liver shows no obstructive disease. The patient will require: 1. Continue IV fluids 2. Continue mechanical ventilation patient is unlikely to be safely weaned off ventilator at this point. 3. Broad-spectrum antibiotics for community-acquired pneumonia. 4. Hold Coumadin. 5. Obtain prior notes. 6. Deep venous thrombosis and gastrointestinal prophylaxis. Comfort care may be more appropriate. Overall prognosis is very poor. Appreciate palliative care input. Problems: NOEMY BERTRAND MD, [facility] Feb 24, 2017 11:25
[2017-02-24] MEDS: SODIUM BICARBONATE (IV ADD) 100 MEQ in DEXTROSE 5%-0.45% NACL 900 ML IV SCH ×3 (11:56→23:32)
--- NOTE | 2017-02-24 12:07 | PN ---
Date/Time of Note Date/Time of Note DATE: 02/24/17 TIME: 11:45 Assessment/Plan VTE Prophylaxis VTE Prophylaxis Intervention: SCD's Lines/Catheters IV Catheter Type (from Nrsg): Central Line Central line still needed: Yes Urinary Cath still in place: Yes Reason Cath still needed: other (indicate) (critically ill) Assessment/Plan Assessment/Plan 86 yo F with advanced dementia, AFib, hypothyroid admitted for acute hypoxic respiratory and sepsis, source unclear. Also complicated by shock liver. PLAN #sepsis: cont meropenem pending further culture data. f/u blood cultures ordered. GPR in blood consistent with contaminant -respiratory culture in process-->scot likely represents colonization and does not warrant treatment in immunocompetent patient #hypoxic respiratory failure: wean vent as tolerated, possibly today? #non anion gap metabolic acidosis: check urine lytes to eval for RTA #KAVYA:RESOLVED #pressure ulcer: wound care cs #proteinuria: urine p/c ~0.3 g proteinuria per day-->outpatient follow up. consider repeat UA closer to discharge #transaminitis: shock liver. improving. viral hepatitis seros negative #AFib: cont home amio and warfarin (as feasible based on INR goal 2-3) #chronic systolic HF: resume lasix/bb as tolerated #hypothyroid: cont home Synthroid #prophx: DVT, GI while on vent #FEN: dietary consult for TFs. Though POLST states no articifial nutrition, I assert TFs through an NG are not unreasonable at this time. If pt with dysphagia that does not improve to the point where G tube would need to be considered, then POLST indications would apply dispo/goals of care: spoke with son 11.14 at length. He stated he would not want mom subjected to CPR, in precontemplative state regarding overall goals of care (comfort focus etc). will talk to sw and RN and will call son today to give update and try to see if we can meet tomorrow in person critical care time: 30 minutes Subjective 24 Hr Interval Summary Free Text/Dictation Appears more afraid this mornign Exam/Review of Systems Vital Signs Vitals Vital Signs Date Time Temp Pulse Resp B/P Pulse Ox O2 Delivery O2 Flow Rate FiO2 02/24/17 10:00 97 18 115/51 99 Mechanical Ventilator 02/24/17 09:10 30 02/24/17 08:00 98.2 02/20/17 18:50 4.0 Intake and Output 02/23/17 02/23/17 02/24/17 15:00 23:00 07:00 Intake Total 853 ml 371 ml 261 ml Output Total 120 ml 110 ml 95 ml Balance 733 ml 261 ml 166 ml Exam looks afraid no mrg moderate air movement abd soft no rashes Results Result Diagram: 02/24/17 0445 02/24/17 0445 Results 24 hrs Laboratory Tests Test 02/24/17 04:45 02/24/17 07:00 02/24/17 09:00 02/24/17 09:47 White Blood Count 14.2 H Red Blood Count 3.80 L Hemoglobin 11.8 L Hematocrit 37.2 Mean Corpuscular Volume 97.9 Mean Corpuscular Hemoglobin 31.1 Mean Corpuscular Hemoglobin Concent 31.7 L Red Cell Distribution Width 16.0 H Platelet Count 247 # Mean Platelet Volume 12.0 H Neutrophils % 87.6 H Lymphocytes % 5.8 L Monocytes % 5.4 Eosinophils % 0.2 Basophils % 0.4 Nucleated Red Blood Cells % 0.1 H Neutrophils # 12.5 H Lymphocytes # 0.8 Monocytes # 0.8 Eosinophils # 0.0 Basophils # 0.1 Nucleated Red Blood Cells # 0.0 Prothrombin Time 39.5 H Prothrombin Time Ratio 3.1 INR International Normalized Ratio 3.98 Sodium Level 140 Potassium Level 3.8 Chloride Level 112 H Carbon Dioxide Level 19 L Anion Gap 13 Blood Urea Nitrogen 25 H Creatinine 0.92 Glucose Level 110 Calcium Level 7.8 L Blood Gas Specimen Source Blood arterial Blood arterial Arterial Blood Date Drawn 02/24/2017 7:50:47 AM 02/24/2017 9:20:47 AM Arterial Blood pH (Temp corrected) 7.295 *L 7.343 L Arterial Blood pCO2 (Temp correct) 28.9 L 27.5 L Arterial Blood pO2 (Temp corrected) 107.7 H 146.4 H Arterial Blood HCO3 13.7 L 14.6 L Arterial Blood Base Excess -11.3 L -9.6 L Arterial Blood Oxygen Saturation 97.8 98.9 Simon Test ACCEPTAB ACCEPTAB Arterial Blood Gas Puncture Site Right Radial Right Radial Arterial Blood Carboxyhemoglobin 0.6 0.2 Arterial Blood Methemoglobin 0.2 0.1 Blood Gas A-a O2 Differential 72.2 H 35.2 H Oxyhemoglobin Percent 97.0 98.6 Total Hemoglobin 13.5 12.9 Blood Gas Temperature 37.0 37.0 Blood Gas Respiration Rate 18.0 18.0 Blood Gas Actual Respiration Rate 28 18 Blood Gas Modality VENT - AC VENT - AC FiO2 30.0 30.0 Blood Gas Tidal Volume 450.0 450.0 Blood Gas Low PEEP Setting 5.0 Blood Gas Critical Value Read Back Jacqueline PURDY RN Blood Gas Notified Whom DENNIS COLLINS Blood Gas Notified Time 02/24/2017 8:24:54 AM 02/24/2017 9:36:39 AM Lactic Acid Level 1.4 Medications Medications Current Medications Ondansetron HCl (Zofran Inj) 4 mg Q6H PRN IV NAUSEA AND/OR VOMITING; Start 03/27 at 21:30 Acetaminophen (Tylenol Liquid) 650 mg Q6H PRN PO PAIN LEVEL 1-3 OR FEVER; Start 02/20/17 at 21:30 Morphine Sulfate (morphine) 2 mg Q4H PRN IV PAIN LEVEL 7-10 Last administered on 02/23/17 08:21; Admin Dose 2 MG; Start 02/20/17 at 21:30 Magnesium Hydroxide 30 ml 30 ml DAILY PRN PO CONSTIPATION; Start 02/20/17 at 21:30 Meropenem/Sodium Chloride (Merrem 500mg/50 ml(Pmx)) 50 ml @ 200 mls/hr Q12 IVPB Last administered on 02/24/17 09:53; Admin Dose 200 MLS/HR; Start 02/20 at 22:00 Atorvastatin Calcium (Lipitor) 40 mg QHS PO Last administered on 02/23/17 20: 20; Admin Dose 40 MG; Start 02/21/17 at 21:00 Famotidine (Pepcid) 20 mg HS GTB Last administered on 02/23/17 20:20; Admin Dose 20 MG; Start 02/21/17 at 21:00 Amiodarone HCl (Cordarone) 100 mg DAILY PO Last administered on 02/24/17 08: 19; Admin Dose 100 MG; Start 02/21/17 at 09:30 Warfarin Sodium (Coumadin) 1 mg DAILY PO ; Start 02/21/17 at 09:30; Status Future Hold Miscellaneous Information (Pending Santyl Order For Wound Care) This patient sadler... PRN PRN XX WOUND CARE; Start 02/21/17 at 10:00 Collagenase (Santyl) 1 applic DAILY TOP Last administered on 02/24/17 08:20; Admin Dose 1 APPLIC; Start 02/22/17 at 10:00 Ascorbic Acid (Vitamin C) 500 mg DAILY PO Last administered on 02/24/17 08:19 ; Admin Dose 500 MG; Start 02/23/17 at 09:00 Calcium/Vitamin D (Oyster Shell/ Vit-D (500/200)) 1 tab DAILY PO Last administered on 02/24/17 08:18; Admin Dose 1 TAB; Start 02/23/17 at 09:00 Docusate Sodium (Colace) 100 mg BID PO Last administered on 02/23/17 20:20; Admin Dose 100 MG; Start 02/22/17 at 21:00 Ferrous Sulfate (Ferrous Sulfate (Ec)) 325 mg DAILY PO Last administered on 08:18; Admin Dose 325 MG; Start 02/23/17 at 09:00 Furosemide (Lasix) 20 mg DAILY PO Last administered on 02/24/17 08:19; Admin Dose 20 MG; Start 02/23/17 at 09:00 Multivitamins Therapeutic 1 tab 1 tab DAILY PO Last administered on 02/24/17 08:19; Admin Dose 1 TAB; Start 02/23/17 at 09:00 Fentanyl (Sublimaze) 100 ml @ 2.5 mls/hr TITRATE IV Last administered on 02/24 00:15; Admin Dose 7 MLS/HR; Start 02/22/17 at 10:00 Metoprolol Tartrate 5 mg 5 mg Q6H PRN IV ELEVATED HEART RATE Last administered on 02/24/17 00:15; Admin Dose 5 MG; Start 02/23/17 at 02:40 Midazolam HCl 50 ml @ 1 mls/hr TITRATE PRN IV SEDATION; Start 02/23/17 at 11: 30 Sodium Bicarbonate/ Dextrose/Sodium Chloride (Na Bicarb/D5-1/ 2ns) 1,000 ml @ 100 mls/hr Q10H IV ; Start 02/24/17 at 11:00 JEMIMA PAZ MD Feb 24, 2017 12:07
[2017-02-24 13:11] LABS: AADO2 Arterial 68.3 mmHg (7.0-24.0); Allen Test ACCEPTAB; Arterial Base Excess -9.9 mmol/L (-3.0-3); Arterial COHb 0.3 % (0.0-3.0); Arterial Fraction of Oxyhgb 97.5 % (93.0-99.0); Arterial HCO3 15.3 mmol/L (22.0-26.0); Arterial MetHb 0.1 % (0.0-1.5); Arterial Total Hemglobin 13.8 g/dl (12.0-18.0); MODE VENT - AC
[2017-02-24] MEDS ORDERED: NYSTATIN SUSP 5 ML CUP PO ONE (13:30)
[2017-02-24] MEDS: FLUCONAZOLE 100 MG TAB PO SCH (14:25)
[2017-02-24] MEDS: ATORVASTATIN 40 MG TAB PO SCH (20:14)
[2017-02-24] MEDS: FAMOTIDINE 20 MG TAB GTB SCH (20:15)
[2017-02-24 20:21] LABS: POTASSIUM,URINE RANDOM 14.3 mmol/L (25-125)
[2017-02-24] MEDS: CEFEPIME 1GM/50 ML (PMX) 50 ML IVPB SCH (22:23)
[2017-02-25] VITALS (34 sets, daily range): BP systolic 97–164; BP diastolic 38–128; PULSE 79–135; RESP 16–23
[2017-02-25 05:25] LABS: BASOPHIL # 0.1 10^3/ul (0.0-0.1); BASOPHILS % 0.4 % (0.0-2.0); EOSINOPHILS % 0.1 % (0.0-7.0); HEMATOCRIT 32.8 % (37.0-47.0); HEMOGLOBIN 10.6 g/dl (12.0-16.0); LYMPHOCYTES # 0.7 10^3/ul (0.8-2.9); LYMPHOCYTES % 5.7 % (15.0-51.0); MEAN CORPUSCULAR HEMOGLOBIN 30.4 pg (29.0-33.0); MEAN CORPUSCULAR HGB CONC 32.3 g/dl (32.0-37.0); MEAN PLATELET VOLUME 11.9 fl (7.4-10.4); MONOCYTE # 0.8 10^3/ul (0.3-0.9); MONOCYTES % 6.4 % (0.0-11.0); NEUTROPHILS % 86.8 % (39.0-77.0); NUCLEATED RED BLOOD CELLS% 0.2 /100WBC (0.0-0.0); PLATELET COUNT 225 10^3/UL (140-415); RED BLOOD COUNT 3.49 10^6/ul (4.20-5.40); RED CELL DISTRIBUTION WIDTH 15.9 % (11.5-14.5); WHITE BLOOD COUNT 12.6 10^3/ul (4.8-10.8)
[2017-02-25 05:29] LABS: INR 4.11; PROTIME 40.5 Sec (12.2-14.2); PT RATIO 3.2
--- NOTE | 2017-02-25 05:31 | PN ---
DATE: 02/24/2017 SUBJECTIVE: No acute changes. The patient is lying comfortably in bed. Afebrile. Endotracheal as pirate grew Kristal albicans. Blood culture on admission grew coagulase-negative staph and coryneba cterium species. Patient's repeat blood cultures negative. INDWELLINGS: Endotracheal tube, NG tube, left IJ triple-lumen catheter. DIAGNOSTICS: Chest x-ray this morning revealed mild prominence of interstitial markings with basila r interstitial opacities mildly increased, may reflect atelectasis, edema or pneumonia, small bilate ral pleural effusions and mild cardiomegaly. PHYSICAL EXAMINATION: GENERAL: This is a fragile, chronically ill-appearing, elderly woman who is in no distress. HEENT: Head atraumatic, normocephalic. Sclerae anicteric. Buccal mucosa dry. NECK: Supple. CHEST: Rise symmetrical. Breath sounds diminished to bases. HEART: S1, S2. ABDOMEN: Soft, bowel tones present. EXTREMITIES: Without cyanosis. ASSESSMENT: 1. Sepsis, status post shock. 2. Acute respiratory failure with possible pneumonia. 3. Status post coagulase-negative Staphylococcus bacteremia with repeat blood cultures being negati ve. The patient is off vancomycin. 4. History of cerebrovascular accident. 5. Persistent leukocytosis. 6. Transaminitis, possibly shock liver, LFT trending down. PLAN: The patient remains hemodynamically stable. We are going to change Merrem to cefepime, add f luconazole to the regimen and oral nystatin. Continue vent management as per pulmonary. The patien t is DNR status. Discussed with Dr. Escobar. Dictated By: SHALOM ESTRADA BELL [employer] for HEMANT LUNA MD NI/NTS Conf#: [id number] DID#: [id number] CC: JAMEEL GIRARD MD;*EndCC*
[2017-02-25 05:40] LABS: CALCIUM 8.2 mg/dl (8.4-10.2); CREATININE 0.96 mg/dl (0.44-1.00); MAGNESIUM 1.9 mg/dl (1.7-2.5); POTASSIUM 3.5 mmol/L (3.5-5.1)
[2017-02-25] MEDS: LEVOTHYROXINE 150 MCG TAB PO SCH (06:17)
--- NOTE | 2017-02-25 07:11 | CONS ---
Date/Time of Note Date/Time of Note DATE: 02/25/17 TIME: 07:01 Assessment/Plan Assessment/Plan Additional Assessment/Plan Acute respiratory failure Dementia Sepsis syndrome \Is available in the chart insofar as background history is incomplete. Apparently voice for patient as her son we would need to ascertain whether or not there are other family members that are involved decision making both legally and ethically. Patient cannot make decisions on her own behalf in reviewing Dr. Muñiz's notes it appears that patient son is very aware of her current moribund condition. At the time of the meeting will address fears concerns were strands cultural preferences communication issues caregiver concerns. My examination primarily in this case the patient is more than will in all probability not survive this hospitalization therefore goals of care should be discussed with patient's son and quality of life. Will also speak to patient's son insofar as communication preferences. And caregiver concerns there are no occasions for bioethics consultation. However I will strongly recommend comfort care if patient's son is amenable S patient's prognosis is extremely poor. Consultation Date/Type/Reason Admit Date/Time Feb 20, 2017 at 21:09 Hx of Present Illness Asked to see patient by Dr. Escobar 86-year-old female presenting with respiratory failure now intubated, sepsis syndrome underlying history of dementia presents from a alf facility. Dr. Muñiz has spoken with patient's son patient is currently a DNR. Stilling intensive care unit receiving aggressive intervention. Social work service has been asked to schedule a meeting with family members. Patient is moribund and cannot make decisions on her own behalf. 86-year-old female with advanced dementia presenting with acute respiratory failure and sepsis 6 yo F with advanced dementia, AFib, hypothyroid admitted for acute hypoxic respiratory and sepsis, source unclear. Also complicated by shock liver. PLAN #sepsis: cont meropenem pending further culture data. f/u blood cultures ordered. GPR in blood consistent with contaminant -respiratory culture in process-->scot likely represents colonization and does not warrant treatment in immunocompetent patient #hypoxic respiratory failure: wean vent as tolerated, possibly today? #non anion gap metabolic acidosis: check urine lytes to eval for RTA #KAVYA:RESOLVED #pressure ulcer: wound care cs #proteinuria: urine p/c ~0.3 g proteinuria per day-->outpatient follow up. consider repeat UA closer to discharge #transaminitis: shock liver. improving. viral hepatitis seros negative #AFib: cont home amio and warfarin (as feasible based on INR goal 2-3) #chronic systolic HF: resume lasix/bb as tolerated #hypothyroid: cont home Synthroid Social History Smoking Status: Unknown if ever smoked Exam/Review of Systems Vital Signs Vitals Vital Signs Date Time Temp Pulse Resp B/P Pulse Ox O2 Delivery O2 Flow Rate FiO2 02/25/17 06:00 121 17 126/68 100 Mechanical Ventilator 02/25/17 05:02 30 02/25/17 04:00 98.6 Intake and Output 02/24/17 02/24/17 02/25/17 15:00 23:00 07:00 Intake Total 506 ml 107 ml Output Total 200 ml 90 ml Balance 506 ml -93 ml -90 ml Exam Constitutional: non-verbal Eyes: EOMI, PERRL, nl conjunctiva, nl lids, nl sclera, No fundi, disc, No icteric, No other Cardiovascular: nl pulses, regular rate and rhythm, No S3, No S4, No bruits, No diastolic murmur, No edema, No gallop, No irregular rhythm, No jugular venous distention (JVD), No murmurs/extra sounds, No other, No rub, No systolic murmur Neurological: other (Cranial nerves cannot be examined adequately, moves upper extremities lower extremities, does not follow simple commands) Results Result Diagram: 02/25/17 0440 02/25/17 0440 Results 24 hrs Laboratory Tests Test 02/24/17 09:00 02/24/17 09:47 02/24/17 12:00 02/24/17 19:00 Blood Gas Specimen Source Blood arterial Blood arterial Arterial Blood Date Drawn 02/24/2017 9:20:47 AM 02/24/2017 1:00:14 PM Arterial Blood pH (Temp corrected) 7.343 L 7.299 *L Arterial Blood pCO2 (Temp correct) 27.5 L 31.8 L Arterial Blood pO2 (Temp corrected) 146.4 H 108.2 H Arterial Blood HCO3 14.6 L 15.3 L Arterial Blood Base Excess -9.6 L -9.9 L Arterial Blood Oxygen Saturation 98.9 97.9 Simon Test ACCEPTAB ACCEPTAB Arterial Blood Gas Puncture Site Right Radial Right Radial Arterial Blood Carboxyhemoglobin 0.2 0.3 Arterial Blood Methemoglobin 0.1 0.1 Blood Gas A-a O2 Differential 35.2 H 68.3 H Oxyhemoglobin Percent 98.6 97.5 Total Hemoglobin 12.9 13.8 Blood Gas Temperature 37.0 37.0 Blood Gas Respiration Rate 18.0 18.0 Blood Gas Actual Respiration Rate 18 24 Blood Gas Modality VENT - AC VENT - AC FiO2 30.0 30.0 Blood Gas Tidal Volume 450.0 450.0 Blood Gas Notified Whom DENNIS COLLINS Blood Gas Notified Time 02/24/2017 9:36:39 AM 02/24/2017 1:08:14 PM Lactic Acid Level 1.4 Blood Gas Low PEEP Setting 5.0 Blood Gas Critical Value Read Back Jacqueline PURDY RN Urine Random Sodium < 13 L Urine Random Potassium 14.3 L Test 02/25/17 04:40 White Blood Count 12.6 H Red Blood Count 3.49 L Hemoglobin 10.6 L Hematocrit 32.8 L Mean Corpuscular Volume 94.0 Mean Corpuscular Hemoglobin 30.4 Mean Corpuscular Hemoglobin Concent 32.3 Red Cell Distribution Width 15.9 H Platelet Count 225 Mean Platelet Volume 11.9 H Neutrophils % 86.8 H Lymphocytes % 5.7 L Monocytes % 6.4 Eosinophils % 0.1 Basophils % 0.4 Nucleated Red Blood Cells % 0.2 H Neutrophils # 11.0 H Lymphocytes # 0.7 L Monocytes # 0.8 Eosinophils # 0.0 Basophils # 0.1 Nucleated Red Blood Cells # 0.0 Prothrombin Time 40.5 H Prothrombin Time Ratio 3.2 INR International Normalized Ratio 4.11 Sodium Level 141 Potassium Level 3.5 Chloride Level 113 H Carbon Dioxide Level 21 Anion Gap 11 Blood Urea Nitrogen 26 H Creatinine 0.96 Glucose Level 112 Calcium Level 8.2 L Phosphorus Level 3.0 Magnesium Level 1.9 Medications Medications Current Medications Ondansetron HCl (Zofran Inj) 4 mg Q6H PRN IV NAUSEA AND/OR VOMITING; Start 03/27 at 21:30 Acetaminophen (Tylenol Liquid) 650 mg Q6H PRN PO PAIN LEVEL 1-3 OR FEVER; Start 02/20/17 at 21:30 Morphine Sulfate (morphine) 2 mg Q4H PRN IV PAIN LEVEL 7-10 Last administered on 02/23/17t 08:21; Admin Dose 2 MG; Start 02/20/17 at 21:30 Magnesium Hydroxide (Milk Of Mag) 30 ml DAILY PRN PO CONSTIPATION; Start 02/20 at 21:30 Atorvastatin Calcium (Lipitor) 40 mg QHS PO Last administered on 02/24/17 20: 14; Admin Dose 40 MG; Start 02/21/17 at 21:00 Famotidine (Pepcid) 20 mg HS GTB Last administered on 02/24/17 20:15; Admin Dose 20 MG; Start 02/21/17 at 21:00 Amiodarone HCl (Cordarone) 100 mg DAILY PO Last administered on 02/24/17 08: 19; Admin Dose 100 MG; Start 02/21/17 at 09:30 Warfarin Sodium (Coumadin) 1 mg DAILY PO ; Start 02/21/17 at 09:30; Status Future Hold Miscellaneous Information (Pending Santyl Order For Wound Care) This patient sadler... PRN PRN XX WOUND CARE; Start 02/21/17 at 10:00 Collagenase (Santyl) 1 applic DAILY TOP Last administered on 02/24/17 08:20; Admin Dose 1 APPLIC; Start 02/22/17 at 10:00 Ascorbic Acid (Vitamin C) 500 mg DAILY PO Last administered on 02/24/17 08:19 ; Admin Dose 500 MG; Start 02/23/17 at 09:00 Calcium/Vitamin D (Oyster Shell/ Vit-D (500/200)) 1 tab DAILY PO Last administered on 02/24/17 08:18; Admin Dose 1 TAB; Start 02/23/17 at 09:00 Docusate Sodium (Colace) 100 mg BID PO Last administered on 02/24/17 20:15; Admin Dose 100 MG; Start 02/22/17 at 21:00 Ferrous Sulfate (Ferrous Sulfate (Ec)) 325 mg DAILY PO Last administered on 08:18; Admin Dose 325 MG; Start 02/23/17 at 09:00 Furosemide (Lasix) 20 mg DAILY PO Last administered on 02/24/17 08:19; Admin Dose 20 MG; Start 02/23/17 at 09:00 Multivitamins Therapeutic 1 tab 1 tab DAILY PO Last administered on 02/24/17 08:19; Admin Dose 1 TAB; Start 02/23/17 at 09:00 Fentanyl (Sublimaze) 100 ml @ 2.5 mls/hr TITRATE IV Last administered on 02/24 23:32; Admin Dose 7 MLS/HR; Start 02/22/17 at 10:00 Metoprolol Tartrate 5 mg 5 mg Q6H PRN IV ELEVATED HEART RATE Last administered on 02/24/17 00:15; Admin Dose 5 MG; Start 02/23/17 at 02:40 Midazolam HCl 50 ml @ 1 mls/hr TITRATE PRN IV SEDATION; Start 02/23/17 at 11: 30 Sodium Bicarbonate 100 meq/Dextrose/ Sodium Chloride 1,000 ml @ 100 mls/hr Q10H IV Last administered on 02/24/17 23:32; Admin Dose 100 MLS/HR; Start at 11:00 Cefepime HCl (Maxipime 1gm/50 ml (Pmx)) 50 ml @ 100 mls/hr Q24H IVPB Last administered on 02/24/17 22:23; Admin Dose 100 MLS/HR; Start 02/24/17 at 21: 00 Fluconazole (Diflucan) 100 mg DAILY PO Last administered on 02/24/17 14:25; Admin Dose 100 MG; Start 02/24/17 at 13:30 DUANE JENKINS Feb 25, 2017 07:11
[2017-02-25 07:54] LABS: AADO2 Arterial 51.4 mmHg (7.0-24.0); Allen Test ACCEPTAB; Arterial Base Excess -4.1 mmol/L (-3.0-3); Arterial COHb 0.3 % (0.0-3.0); Arterial Fraction of Oxyhgb 98.2 % (93.0-99.0); Arterial HCO3 18.1 mmol/L (22.0-26.0); Arterial MetHb 0.2 % (0.0-1.5); Arterial Total Hemglobin 12.6 g/dl (12.0-18.0); MODE VENT - AC
--- NOTE | 2017-02-25 08:02 | RADRPT ---
PROCEDURE: XR Chest. CLINICAL INDICATION: Respiratory failure. Pneumonia. TECHNIQUE: Single frontal view of the chest. COMPARISON: 02/24/2017 and additional priors FINDINGS: Support lines and tubes: Endotracheal tube tip well positioned over the mid tracheal shadow. Enteri c tube tip is just beyond the GE junction. Left internal jugular central line with the tip over the left brachiocephalic/SVC junction. Cardiac/vascular structures: Normal cardiomediastinal silhouette. Cardiac valve. Aortic calcificati ons. Pulmonary: Improved aeration with residual bilateral perihilar and left basilar airspace opacities. No pleural effusion. No evidence of pneumothorax. Osseous structures: Sternotomy wires. Soft tissues: Normal IMPRESSION: 1. Enteric tube tip is just beyond the GE junction. Recommend advancing 10 cm. 2. Stable position of left IJ catheter and endotracheal tube. 3. Improved aeration with residual bilateral perihilar and left basilar opacities representing resol ving pulmonary edema or infection. 4. Aortic atherosclerotic calcifications. 5. Cardiac valve replacement. RPTAT:AAJJ Physician Kt Date Time Electronically viewed and signed by Physician Kt on 02/25/2017 08:01 /
[2017-02-25] MEDS: CALCIUM/VITAMIN D (500/200) TAB PO SCH (08:27)
[2017-02-25] MEDS: FLUCONAZOLE 100 MG TAB PO SCH (08:27)
[2017-02-25] MEDS: AMIODARONE 200 MG TAB PO SCH (08:27)
[2017-02-25] MEDS: MULTIVITAMINS THERAPEUTIC TAB PO SCH (08:28)
[2017-02-25] MEDS: ASCORBIC ACID 500 MG TAB PO SCH (08:28)
[2017-02-25] MEDS: FUROSEMIDE 20 MG TAB PO SCH (08:28)
[2017-02-25] MEDS: FERROUS SULFATE (EC) 325 MG TAB PO SCH (08:28)
[2017-02-25] MEDS: METOPROLOL 5 MG INJ IV PRN ×2 (08:28→20:07)
[2017-02-25] MEDS: COLLAGENASE 30 GM TUBE TOP SCH (08:29)
[2017-02-25] MEDS: DOCUSATE SODIUM 100 MG CAP PO SCH ×2 (09:15→21:00)
[2017-02-25] MEDS: FENTAnyl (DRIP) 1000 mcg/100mL 100 ML IV SCH ×2 (10:34→20:06)
--- NOTE | 2017-02-25 10:41 | CONS ---
Date/Time of Note Date/Time of Note DATE: 02/25/17 TIME: 10:40 Consult Date/Type/Reason Admit Date/Time Feb 20, 2017 at 21:09 Type of Consultation: Pulm Subjective Eyes open and agitated on mechanical ventilation. Significant weakness. Failed prior CPAP trials. Objective Vital Signs Date Time Temp Pulse Resp B/P Pulse Ox O2 Delivery O2 Flow Rate FiO2 02/25/17 06:00 121 17 126/68 100 Mechanical Ventilator 02/25/17 05:02 30 02/25/17 04:00 98.6 Intake and Output 02/24/17 02/24/17 02/25/17 15:00 23:00 07:00 Intake Total 506 ml 107 ml Output Total 200 ml 90 ml Balance 506 ml -93 ml -90 ml Exam PHYSICAL EXAMINATION: GENERAL: Elderly-appearing lady, intubated on mechanical ventilation, anxious with endotracheal tube in place. VITAL SIGNS: HEENT: Dry mucous membranes. Pupils equal and reactive to light. CARDIAC: S1, S2, no added sounds or murmurs. CHEST: Diminished air entry bilaterally. ABDOMEN: Soft, nontender. No guarding or rebound. EXTREMITIES: No cyanosis, clubbing, 1+ edema. NEUROLOGIC: Generalized weakness. Results/Medications Result Diagram: 02/25/17 0440 02/25/17 0440 Results 24 hrs Laboratory Tests Test 02/24/17 12:00 02/24/17 19:00 02/25/17 04:40 02/25/17 07:00 Blood Gas Specimen Source Blood arterial Blood arterial Arterial Blood Date Drawn 02/24/2017 1:00:14 PM 02/25/2017 7:35:30 AM Arterial Blood pH (Temp corrected) 7.299 *L 7.469 H Arterial Blood pCO2 (Temp correct) 31.8 L 25.5 L Arterial Blood pO2 (Temp corrected) 108.2 H 132.5 H Arterial Blood HCO3 15.3 L 18.1 L Arterial Blood Base Excess -9.9 L -4.1 L Arterial Blood Oxygen Saturation 97.9 98.7 Simon Test ACCEPTAB ACCEPTAB Arterial Blood Gas Puncture Site Right Radial Right Radial Arterial Blood Carboxyhemoglobin 0.3 0.3 Arterial Blood Methemoglobin 0.1 0.2 Blood Gas A-a O2 Differential 68.3 H 51.4 H Oxyhemoglobin Percent 97.5 98.2 Total Hemoglobin 13.8 12.6 Blood Gas Temperature 37.0 37.0 Blood Gas Respiration Rate 18.0 14.0 Blood Gas Actual Respiration Rate 24 23 Blood Gas Modality VENT - AC VENT - AC FiO2 30.0 30.0 Blood Gas Tidal Volume 450.0 550.0 Blood Gas Low PEEP Setting 5.0 5.0 Blood Gas Critical Value Read Back Jacqueline PURDY RN Blood Gas Notified Whom JLScarlet COLLINS Blood Gas Notified Time 02/24/2017 1:08:14 PM 02/25/2017 7:54:13 AM Urine Random Sodium < 13 L Urine Random Potassium 14.3 L White Blood Count 12.6 H Red Blood Count 3.49 L Hemoglobin 10.6 L Hematocrit 32.8 L Mean Corpuscular Volume 94.0 Mean Corpuscular Hemoglobin 30.4 Mean Corpuscular Hemoglobin Concent 32.3 Red Cell Distribution Width 15.9 H Platelet Count 225 Mean Platelet Volume 11.9 H Neutrophils % 86.8 H Lymphocytes % 5.7 L Monocytes % 6.4 Eosinophils % 0.1 Basophils % 0.4 Nucleated Red Blood Cells % 0.2 H Neutrophils # 11.0 H Lymphocytes # 0.7 L Monocytes # 0.8 Eosinophils # 0.0 Basophils # 0.1 Nucleated Red Blood Cells # 0.0 Prothrombin Time 40.5 H Prothrombin Time Ratio 3.2 INR International Normalized Ratio 4.11 Sodium Level 141 Potassium Level 3.5 Chloride Level 113 H Carbon Dioxide Level 21 Anion Gap 11 Blood Urea Nitrogen 26 H Creatinine 0.96 Glucose Level 112 Calcium Level 8.2 L Phosphorus Level 3.0 Magnesium Level 1.9 Medications Current Medications Ondansetron HCl (Zofran Inj) 4 mg Q6H PRN IV NAUSEA AND/OR VOMITING; Start 03/27 at 21:30 Acetaminophen (Tylenol Liquid) 650 mg Q6H PRN PO PAIN LEVEL 1-3 OR FEVER; Start 02/20/17 at 21:30 Morphine Sulfate (morphine) 2 mg Q4H PRN IV PAIN LEVEL 7-10 Last administered on 02/23/17 08:21; Admin Dose 2 MG; Start 02/20/17 at 21:30 Magnesium Hydroxide (Milk Of Mag) 30 ml DAILY PRN PO CONSTIPATION; Start 02/20 at 21:30 Atorvastatin Calcium (Lipitor) 40 mg QHS PO Last administered on 02/24/17 20: 14; Admin Dose 40 MG; Start 02/21/17 at 21:00 Famotidine (Pepcid) 20 mg HS GTB Last administered on 02/24/17 20:15; Admin Dose 20 MG; Start 02/21/17 at 21:00 Amiodarone HCl (Cordarone) 100 mg DAILY PO Last administered on 02/25/17 08: 27; Admin Dose 100 MG; Start 02/21/17 at 09:30 Warfarin Sodium (Coumadin) 1 mg DAILY PO ; Start 02/21/17 at 09:30; Status Future Hold Miscellaneous Information (Pending Santyl Order For Wound Care) This patient sadler... PRN PRN XX WOUND CARE; Start 02/21/17 at 10:00 Collagenase (Santyl) 1 applic DAILY TOP Last administered on 02/25/17 08:29; Admin Dose 1 APPLIC; Start 02/22/17 at 10:00 Ascorbic Acid (Vitamin C) 500 mg DAILY PO Last administered on 02/25/17 08:28 ; Admin Dose 500 MG; Start 02/23/17 at 09:00 Calcium/Vitamin D (Oyster Shell/ Vit-D (500/200)) 1 tab DAILY PO Last administered on 02/25/17 08:27; Admin Dose 1 TAB; Start 02/23/17 at 09:00 Docusate Sodium (Colace) 100 mg BID PO Last administered on 02/24/17 20:15; Admin Dose 100 MG; Start 02/22/17 at 21:00 Ferrous Sulfate (Ferrous Sulfate (Ec)) 325 mg DAILY PO Last administered on 08:28; Admin Dose 325 MG; Start 02/23/17 at 09:00 Furosemide (Lasix) 20 mg DAILY PO Last administered on 02/25/17 08:28; Admin Dose 20 MG; Start 02/23/17 at 09:00 Multivitamins Therapeutic 1 tab 1 tab DAILY PO Last administered on 02/25/17 08:28; Admin Dose 1 TAB; Start 02/23/17 at 09:00 Fentanyl (Sublimaze) 100 ml @ 2.5 mls/hr TITRATE IV Last administered on 02/25 10:34; Admin Dose 10 MLS/HR; Start 02/22/17 at 10:00 Metoprolol Tartrate 5 mg 5 mg Q6H PRN IV ELEVATED HEART RATE Last administered on 02/25/17 08:28; Admin Dose 5 MG; Start 02/23/17 at 02:40 Midazolam HCl 50 ml @ 1 mls/hr TITRATE PRN IV SEDATION; Start 02/23/17 at 11: 30 Sodium Bicarbonate 100 meq/Dextrose/ Sodium Chloride 1,000 ml @ 100 mls/hr Q10H IV Last administered on 02/24/17 23:32; Admin Dose 100 MLS/HR; Start at 11:00 Cefepime HCl (Maxipime 1gm/50 ml (Pmx)) 50 ml @ 100 mls/hr Q24H IVPB Last administered on 02/24/17 22:23; Admin Dose 100 MLS/HR; Start 02/24/17 at 21: 00 Fluconazole (Diflucan) 100 mg DAILY PO Last administered on 02/25/17 08:27; Admin Dose 100 MG; Start 02/24/17 at 13:30 Assessment/Plan Chief Complaint/Hosp Course IMPRESSION AND PLAN: 1. Hypoxemic respiratory failure, possibly secondary to healthcare-associated pneumonia. 2. Improving metabolic acidosis and renal insufficiency 3. Delirium possible underlying dementia. 4. Improving transaminitis. Ultrasound liver shows no obstructive disease. The patient will require: 1. Continue IV fluids 2. Continue mechanical ventilation failed CPAP weaning trials. Family do not want tracheostomy and PEG tube placement however are deferring palliative care discussions to Tuesday. 3. Broad-spectrum antibiotics for community-acquired pneumonia. 4. Hold Coumadin. 5. Start tube feeding. 6. Deep venous thrombosis and gastrointestinal prophylaxis. Agree with comfort care. Problems: NOEMY BERTRAND MD, [facility] Feb 25, 2017 10:41
--- NOTE | 2017-02-25 12:25 | PN ---
Date/Time of Note Date/Time of Note DATE: 02/25/17 TIME: 12:15 Assessment/Plan VTE Prophylaxis VTE Prophylaxis Intervention: SCD's Lines/Catheters IV Catheter Type (from Nrsg): Central Line Central line still needed: No Urinary Cath still in place: Yes Reason Cath still needed: other (indicate) (critically ill) Assessment/Plan Assessment/Plan 86 yo F with advanced dementia, AFib, hypothyroid admitted for acute hypoxic respiratory and sepsis, possibly from pneumonia. Also complicated by shock liver which is resolving PLAN #sepsis: ID has narrowed meropenem to cefepime. fluc added by ID given scot in respiratory culture #hypoxic respiratory failure: wean vent as tolerated #non anion gap metabolic acidosis: check urine lytes to eval for RTA-->urine chloride pending #KAVYA:RESOLVED #pressure ulcer: wound care cs #proteinuria: urine p/c ~0.3 g proteinuria per day-->outpatient follow up. consider repeat UA closer to discharge #transaminitis: shock liver. improving. viral hepatitis seros negative #AFib: cont home amio and warfarin (as feasible based on INR goal 2-3) #chronic systolic HF: resumed lasix/bb #hypothyroid: cont home Synthroid #FEN: start TFs #prophx: DVT, GI while on vent dispo/goals of care: spoke with son again over the phone this morning. dw son that while pt's condition has not significantly worsened over the past 3 days, it has also not significantly improved. Asked son if mom is unable to be weaned off vent, does he think she would want to be trach'ed for prolonged vent weaning. Son said he thinks his mom would not want that. Son states he is in [facility] through the weekend for work. Wants to discuss his mom's clinical status with family and close friends and requested that we touch base next on Tuesday for mutual updates. critical care time: 30 minutes Subjective 24 Hr Interval Summary Free Text/Dictation no acute events Exam/Review of Systems Vital Signs Vitals Vital Signs Date Time Temp Pulse Resp B/P Pulse Ox O2 Delivery O2 Flow Rate FiO2 02/25/17 11:43 113 18 100 30 02/25/17 06:00 126/68 Mechanical Ventilator 02/25/17 04:00 98.6 Intake and Output 02/24/17 02/24/17 02/25/17 15:00 23:00 07:00 Intake Total 506 ml 107 ml Output Total 200 ml 90 ml Balance 506 ml -93 ml -90 ml Exam looks scared no mrg lungs clear but not a great amount of air movement abd soft no rashes Results Result Diagram: 02/25/170 02/25/170 Results 24 hrs Laboratory Tests Test 02/24/17 19:00 02/25/17 04:40 02/25/17 07:00 Urine Random Sodium < 13 L Urine Random Potassium 14.3 L White Blood Count 12.6 H Red Blood Count 3.49 L Hemoglobin 10.6 L Hematocrit 32.8 L Mean Corpuscular Volume 94.0 Mean Corpuscular Hemoglobin 30.4 Mean Corpuscular Hemoglobin Concent 32.3 Red Cell Distribution Width 15.9 H Platelet Count 225 Mean Platelet Volume 11.9 H Neutrophils % 86.8 H Lymphocytes % 5.7 L Monocytes % 6.4 Eosinophils % 0.1 Basophils % 0.4 Nucleated Red Blood Cells % 0.2 H Neutrophils # 11.0 H Lymphocytes # 0.7 L Monocytes # 0.8 Eosinophils # 0.0 Basophils # 0.1 Nucleated Red Blood Cells # 0.0 Prothrombin Time 40.5 H Prothrombin Time Ratio 3.2 INR International Normalized Ratio 4.11 Sodium Level 141 Potassium Level 3.5 Chloride Level 113 H Carbon Dioxide Level 21 Anion Gap 11 Blood Urea Nitrogen 26 H Creatinine 0.96 Glucose Level 112 Calcium Level 8.2 L Phosphorus Level 3.0 Magnesium Level 1.9 Blood Gas Specimen Source Blood arterial Arterial Blood Date Drawn 02/25/2017 7:35:30 AM Arterial Blood pH (Temp corrected) 7.469 H Arterial Blood pCO2 (Temp correct) 25.5 L Arterial Blood pO2 (Temp corrected) 132.5 H Arterial Blood HCO3 18.1 L Arterial Blood Base Excess -4.1 L Arterial Blood Oxygen Saturation 98.7 Simon Test ACCEPTAB Arterial Blood Gas Puncture Site Right Radial Arterial Blood Carboxyhemoglobin 0.3 Arterial Blood Methemoglobin 0.2 Blood Gas A-a O2 Differential 51.4 H Oxyhemoglobin Percent 98.2 Total Hemoglobin 12.6 Blood Gas Temperature 37.0 Blood Gas Respiration Rate 14.0 Blood Gas Actual Respiration Rate 23 Blood Gas Modality VENT - AC FiO2 30.0 Blood Gas Tidal Volume 550.0 Blood Gas Low PEEP Setting 5.0 Blood Gas Notified Whom JLD Blood Gas Notified Time 02/25/2017 7:54:13 AM Medications Medications Current Medications Ondansetron HCl (Zofran Inj) 4 mg Q6H PRN IV NAUSEA AND/OR VOMITING; Start 03/27 at 21:30 Acetaminophen (Tylenol Liquid) 650 mg Q6H PRN PO PAIN LEVEL 1-3 OR FEVER; Start 02/20/17 at 21:30 Morphine Sulfate (morphine) 2 mg Q4H PRN IV PAIN LEVEL 7-10 Last administered on 02/23/17 08:21; Admin Dose 2 MG; Start 02/20/17 at 21:30 Magnesium Hydroxide (Milk Of Mag) 30 ml DAILY PRN PO CONSTIPATION; Start 02/20 at 21:30 Atorvastatin Calcium (Lipitor) 40 mg QHS PO Last administered on 02/24/17 20: 14; Admin Dose 40 MG; Start 02/21/17 at 21:00 Famotidine (Pepcid) 20 mg HS GTB Last administered on 02/24/17 20:15; Admin Dose 20 MG; Start 02/21/17 at 21:00 Amiodarone HCl (Cordarone) 100 mg DAILY PO Last administered on 02/25/17 08: 27; Admin Dose 100 MG; Start 02/21/17 at 09:30 Warfarin Sodium (Coumadin) 1 mg DAILY PO ; Start 02/21/17 at 09:30; Status Future Hold Miscellaneous Information (Pending Santyl Order For Wound Care) This patient sadler... PRN PRN XX WOUND CARE; Start 02/21/17 at 10:00 Collagenase (Santyl) 1 applic DAILY TOP Last administered on 02/25/17 08:29; Admin Dose 1 APPLIC; Start 02/22/17 at 10:00 Ascorbic Acid (Vitamin C) 500 mg DAILY PO Last administered on 02/25/17 08:28 ; Admin Dose 500 MG; Start 02/23/17 at 09:00 Calcium/Vitamin D (Oyster Shell/ Vit-D (500/200)) 1 tab DAILY PO Last administered on 02/25/17 08:27; Admin Dose 1 TAB; Start 02/23/17 at 09:00 Docusate Sodium (Colace) 100 mg BID PO Last administered on 02/24/17 20:15; Admin Dose 100 MG; Start 02/22/17 at 21:00 Ferrous Sulfate (Ferrous Sulfate (Ec)) 325 mg DAILY PO Last administered on 08:28; Admin Dose 325 MG; Start 02/23/17 at 09:00 Furosemide (Lasix) 20 mg DAILY PO Last administered on 02/25/17 08:28; Admin Dose 20 MG; Start 02/23/17 at 09:00 Multivitamins Therapeutic 1 tab 1 tab DAILY PO Last administered on 02/25/17 08:28; Admin Dose 1 TAB; Start 02/23/17 at 09:00 Fentanyl (Sublimaze) 100 ml @ 2.5 mls/hr TITRATE IV Last administered on 02/25 10:34; Admin Dose 10 MLS/HR; Start 02/22/17 at 10:00 Metoprolol Tartrate 5 mg 5 mg Q6H PRN IV ELEVATED HEART RATE Last administered on 02/25/17 08:28; Admin Dose 5 MG; Start 02/23/17 at 02:40 Midazolam HCl 50 ml @ 1 mls/hr TITRATE PRN IV SEDATION; Start 02/23/17 at 11: 30 Sodium Bicarbonate 100 meq/Dextrose/ Sodium Chloride 1,000 ml @ 100 mls/hr Q10H IV Last administered on 02/24/17 23:32; Admin Dose 100 MLS/HR; Start at 11:00 Cefepime HCl (Maxipime 1gm/50 ml (Pmx)) 50 ml @ 100 mls/hr Q24H IVPB Last administered on 02/24/17 22:23; Admin Dose 100 MLS/HR; Start 02/24/17 at 21: 00 Fluconazole (Diflucan) 100 mg DAILY PO Last administered on 02/25/17 08:27; Admin Dose 100 MG; Start 02/24/17 at 13:30 JEMIMA PAZ MD Feb 25, 2017 12:25
[2017-02-25 12:34] LABS: ALBUMIN 2.4 g/dl (3.3-4.9); BILIRUBIN,DIRECT 0.2 mg/dl (0.00-0.20); BILIRUBIN,INDIRECT 0.8 mg/dl (0-1.1); TOTAL PROTEIN 5.2 g/dl (6.1-8.1)
--- NOTE | 2017-02-25 13:58 | PN ---
DATE: 02/25/2017 SUBJECTIVE: No acute events. The patient remains unresponsive, comfortable on vent. No fevers. VITAL SIGNS: Temperature 98.6, pulse 113, respirations 17, blood pressure 126/68, saturation 100 on 30%. LABORATORY DATA: WBC 12.6, H and H 10.6 and 32.8, platelets 225, neutrophils 86.8. BUN 26, creatin ine 0.96. DIAGNOSTICS: Chest x-ray this morning revealed improved aeration with residual bilateral perihilar and left basilar opacities. INDWELLINGS: Endotracheal tube, NG tube, Naj[place], left IJ triple-lumen catheter. ANTIMICROBIALS: The patient is on: 1. Fluconazole. 2. Cefepime. PHYSICAL EXAMINATION: GENERAL: This is a chronically ill-appearing, fragile, elderly woman who is in no distress. HEENT: Head atraumatic, normocephalic. Sclerae anicteric. Buccal mucosa dry. NECK: Supple. CHEST: Rise symmetrical. Breath sounds with scattered crackles. HEART: S1, S2. ABDOMEN: Soft, bowel sounds present. EXTREMITIES: Without cyanosis. Bilateral trace edema. ASSESSMENT: 1. Sepsis, status post shock. 2. Acute respiratory failure, possibly secondary to healthcare-associated pneumonia. 3. History of cerebrovascular accident. 4. Status post coagulase-negative Staphylococcus bacteremia on admission, with repeat blood culture s being negative. 5. Atrial fibrillation and chronic congestive heart failure. 6. Transaminitis secondary to shock liver, improving. PLAN: The patient remains hemodynamically stable. WBC tracing down. Chest x-ray improving. We wi ll continue her on current antibiotics for now. Follow recommendations of consultants. The patient is DNR status. Dictated By: SHALOM ESTRADA DIRT SUPERVISOR for HEMANT LUNA MD NI/NTS Conf#: [id number] DID#: [id number] CC: JAMEEL GIRARD MD;*EndCC*
[2017-02-25] MEDS: SODIUM BICARBONATE (IV ADD) 100 MEQ in DEXTROSE 5%-0.45% NACL 900 ML IV SCH (18:41)
[2017-02-25] MEDS: ATORVASTATIN 40 MG TAB PO SCH (21:28)
[2017-02-25] MEDS: FAMOTIDINE 20 MG TAB GTB SCH (21:28)
[2017-02-25] MEDS: CEFEPIME 1GM/50 ML (PMX) 50 ML IVPB SCH (21:28)
[2017-02-26] VITALS (36 sets, daily range): BP systolic 95–189; BP diastolic 36–95; PULSE 73–146; RESP 16–26
[2017-02-26] MEDS: morphine 2 MG INJ IV PRN ×3 (02:15→20:40)
[2017-02-26] MEDS: SODIUM BICARBONATE (IV ADD) 100 MEQ in DEXTROSE 5%-0.45% NACL 900 ML IV SCH ×2 (05:12→19:50)
[2017-02-26] MEDS: FENTAnyl (DRIP) 1000 mcg/100mL 100 ML IV SCH (05:12)
[2017-02-26 05:35] LABS: BASOPHIL # 0.1 10^3/ul (0.0-0.1); BASOPHILS % 0.5 % (0.0-2.0); EOSINOPHILS % 0.1 % (0.0-7.0); HEMATOCRIT 34.2 % (37.0-47.0); HEMOGLOBIN 11.3 g/dl (12.0-16.0); LYMPHOCYTES # 0.7 10^3/ul (0.8-2.9); LYMPHOCYTES % 5.3 % (15.0-51.0); MEAN CORPUSCULAR HEMOGLOBIN 30.9 pg (29.0-33.0); MEAN CORPUSCULAR VOLUME 93.4 fl (82.0-101.0); MEAN PLATELET VOLUME 12.7 fl (7.4-10.4); MONOCYTE # 0.8 10^3/ul (0.3-0.9); MONOCYTES % 6.1 % (0.0-11.0); NEUTROPHIL # 11.5 10^3/ul (1.6-7.5); NEUTROPHILS % 87.5 % (39.0-77.0); NUCLEATED RED BLOOD CELLS% 0.2 /100WBC (0.0-0.0); PLATELET COUNT 243 10^3/UL (140-415); RED BLOOD COUNT 3.66 10^6/ul (4.20-5.40); RED CELL DISTRIBUTION WIDTH 15.9 % (11.5-14.5); WHITE BLOOD COUNT 13.2 10^3/ul (4.8-10.8)
[2017-02-26] MEDS: LEVOTHYROXINE 150 MCG TAB PO SCH (06:18)
[2017-02-26 06:25] LABS: INR 3.63; PROTIME 36.7 Sec (12.2-14.2); PT RATIO 2.9
[2017-02-26 06:50] LABS: ALBUMIN 2.4 g/dl (3.3-4.9); BILIRUBIN,DIRECT 0.3 mg/dl (0.00-0.20); BILIRUBIN,TOTAL 1.3 mg/dl (0.2-1.3); CALCIUM 8.1 mg/dl (8.4-10.2); CREATININE 0.96 mg/dl (0.44-1.00); POTASSIUM 3.7 mmol/L (3.5-5.1); TOTAL PROTEIN 5.3 g/dl (6.1-8.1)
[2017-02-26] MEDS: FUROSEMIDE 20 MG TAB PO SCH (08:56)
[2017-02-26] MEDS: AMIODARONE 200 MG TAB PO SCH (08:56)
[2017-02-26] MEDS: CALCIUM/VITAMIN D (500/200) TAB PO SCH (08:57)
[2017-02-26] MEDS: ASCORBIC ACID 500 MG TAB PO SCH (08:57)
[2017-02-26] MEDS: COLLAGENASE 30 GM TUBE TOP SCH (08:57)
[2017-02-26] MEDS: FERROUS SULFATE (EC) 325 MG TAB PO SCH (08:57)
[2017-02-26] MEDS: DOCUSATE SODIUM 100 MG CAP PO SCH ×2 (08:57→20:40)
[2017-02-26] MEDS: FLUCONAZOLE 100 MG TAB PO SCH (08:57)
[2017-02-26] MEDS: MULTIVITAMINS THERAPEUTIC TAB PO SCH (08:57)
[2017-02-26] MEDS: METOPROLOL 5 MG INJ IV PRN ×3 (10:52→22:58)
--- NOTE | 2017-02-26 11:11 | CONS ---
Date/Time of Note Date/Time of Note DATE: 02/26/17 TIME: 11:08 Assessment/Plan Assessment/Plan Additional Assessment/Plan Chest x-ray was reviewed from today which is showing endotracheal tube at an adequate level. There is improving bilateral pneumonia. Ventilator setting; AC of 18, tidal volume 550, PEEP of 5, 30% FiO2. Patient is currently on fentanyl 100 mics per hour. Assessment and recommendations; 1. Patient admitted with respiratory failure due to bilateral pneumonia, radiologically improved. 2. Atrial fibrillation. 3. Elevated transaminases, possibly from infection. Hold further sedation. Ventilator settings have been adjusted. Patient's assist-control rate has been decreased to 16, tidal volume 450. When the patient is off sedation she will be evaluated for possible extubation. Meanwhile continue current supportive care. Consultation Date/Type/Reason Admit Date/Time Feb 20, 2017 at 21:09 Initial Consult Date Type of Consultation: Pulm 24 HR Interval Summary Free Text/Dictation Patient's condition remains critical. Still requiring invasive mechanical ventilation. Patient however has remained hemodynamically stable. General exam; elderly woman, orally intubated, sedated, somewhat arousable. Currently in no distress. Exam/Review of Systems Vital Signs Vitals Vital Signs Date Time Temp Pulse Resp B/P Pulse Ox O2 Delivery O2 Flow Rate FiO2 02/26/17 10:57 118 18 141/63 99 Mechanical Ventilator 02/26/17 07:30 97.8 02/26/17 05:44 30 Intake and Output 02/25/17 02/25/17 02/26/17 15:00 23:00 07:00 Intake Total 565 ml 1190 ml Output Total 170 ml 270 ml Balance 395 ml 920 ml Exam HEENT exam; supple neck, no JVD. No lymphadenopathy. Midline trachea. No thyromegaly. Orally intubated. Patient has a multiple carious teeth. Has bilateral surgical pupils. Chest exam; diminished but clear breath sounds. S1-S2 audible, no murmurs. Irregular rhythm. Abdomen exam; soft, scaphoid. No organomegaly. Bowel sounds audible. Extremity exam; no peripheral edema. EL TEACHER exam; patient is somewhat arousable. Results Result Diagram: 02/26/17 0430 02/26/17 0430 Results 24 hrs Laboratory Tests Test 02/26/17 04:30 White Blood Count 13.2 H Red Blood Count 3.66 L Hemoglobin 11.3 L Hematocrit 34.2 L Mean Corpuscular Volume 93.4 Mean Corpuscular Hemoglobin 30.9 Mean Corpuscular Hemoglobin Concent 33.0 Red Cell Distribution Width 15.9 H Platelet Count 243 Mean Platelet Volume 12.7 H Neutrophils % 87.5 H Lymphocytes % 5.3 L Monocytes % 6.1 Eosinophils % 0.1 Basophils % 0.5 Nucleated Red Blood Cells % 0.2 H Neutrophils # 11.5 H Lymphocytes # 0.7 L Monocytes # 0.8 Eosinophils # 0.0 Basophils # 0.1 Nucleated Red Blood Cells # 0.0 Prothrombin Time 36.7 H Prothrombin Time Ratio 2.9 INR International Normalized Ratio 3.63 Sodium Level 144 Potassium Level 3.7 Chloride Level 109 Carbon Dioxide Level 23 Anion Gap 16 Blood Urea Nitrogen 26 H Creatinine 0.96 Glucose Level 112 Calcium Level 8.1 L Magnesium Level 1.9 Total Bilirubin 1.3 Direct Bilirubin 0.30 H Indirect Bilirubin 1.0 Aspartate Amino Transf (AST/SGOT) 121 H Alanine Aminotransferase (ALT/SGPT) 465 H Alkaline Phosphatase 85 Total Protein 5.3 L Albumin 2.4 L Medications Medications Current Medications Ondansetron HCl (Zofran Inj) 4 mg Q6H PRN IV NAUSEA AND/OR VOMITING; Start 03/27 at 21:30 Acetaminophen (Tylenol Liquid) 650 mg Q6H PRN PO PAIN LEVEL 1-3 OR FEVER; Start 02/20/17 at 21:30 Morphine Sulfate (morphine) 2 mg Q4H PRN IV PAIN LEVEL 7-10 Last administered on 02/26/17 02:15; Admin Dose 1 MG; Start 02/20/17 at 21:30 Magnesium Hydroxide (Milk Of Mag) 30 ml DAILY PRN PO CONSTIPATION; Start 02/20 at 21:30 Atorvastatin Calcium (Lipitor) 40 mg QHS PO Last administered on 02/25/17 21: 28; Admin Dose 40 MG; Start 02/21/17 at 21:00 Famotidine (Pepcid) 20 mg HS GTB Last administered on 02/25/17 21:28; Admin Dose 20 MG; Start 02/21/17 at 21:00 Amiodarone HCl (Cordarone) 100 mg DAILY PO Last administered on 02/26/17 08: 56; Admin Dose 100 MG; Start 02/21/17 at 09:30 Warfarin Sodium (Coumadin) 1 mg DAILY PO ; Start 02/21/17 at 09:30; Status Future Hold Miscellaneous Information (Pending Santyl Order For Wound Care) This patient sadler... PRN PRN XX WOUND CARE; Start 02/21/17 at 10:00 Collagenase (Santyl) 1 applic DAILY TOP Last administered on 02/26/17 08:57; Admin Dose 1 APPLIC; Start 02/22/17 at 10:00 Ascorbic Acid (Vitamin C) 500 mg DAILY PO Last administered on 02/26/17 08:57 ; Admin Dose 500 MG; Start 02/23/17 at 09:00 Calcium/Vitamin D (Oyster Shell/ Vit-D (500/200)) 1 tab DAILY PO Last administered on 02/26/17 08:57; Admin Dose 1 TAB; Start 02/23/17 at 09:00 Docusate Sodium (Colace) 100 mg BID PO Last administered on 02/26/17 08:57; Admin Dose 100 MG; Start 02/22/17 at 21:00 Ferrous Sulfate (Ferrous Sulfate (Ec)) 325 mg DAILY PO Last administered on 08:57; Admin Dose 325 MG; Start 02/23/17 at 09:00 Furosemide (Lasix) 20 mg DAILY PO Last administered on 02/26/17 08:56; Admin Dose 20 MG; Start 02/23/17 at 09:00 Multivitamins Therapeutic 1 tab 1 tab DAILY PO Last administered on 02/26/17 08:57; Admin Dose 1 TAB; Start 02/23/17 at 09:00 Fentanyl (Sublimaze) 100 ml @ 2.5 mls/hr TITRATE IV Last administered on 02/26 05:12; Admin Dose 10 MLS/HR; Start 02/22/17 at 10:00 Metoprolol Tartrate 5 mg 5 mg Q6H PRN IV ELEVATED HEART RATE Last administered on 02/26/17 10:52; Admin Dose 5 MG; Start 02/23/17 at 02:40 Midazolam HCl 50 ml @ 1 mls/hr TITRATE PRN IV SEDATION; Start 02/23/17 at 11: 30 Sodium Bicarbonate 100 meq/Dextrose/ Sodium Chloride 1,000 ml @ 100 mls/hr Q10H IV Last administered on 02/26/17 05:12; Admin Dose 100 MLS/HR; Start at 11:00 Cefepime HCl (Maxipime 1gm/50 ml (Pmx)) 50 ml @ 100 mls/hr Q24H IVPB Last administered on 02/25/17 21:28; Admin Dose 100 MLS/HR; Start 02/24/17 at 21: 00 Fluconazole (Diflucan) 100 mg DAILY PO Last administered on 02/26/17 08:57; Admin Dose 100 MG; Start 02/24/17 at 13:30 THERESA REYES Feb 26, 2017 11:11
--- NOTE | 2017-02-26 11:35 | CONS ---
Date/Time of Note Date/Time of Note DATE: 02/26/17 TIME: 11:34 Assessment/Plan Assessment/Plan Chief Complaint/Hosp Course ID PROGRESS NOTE CURRENT ABX: DAY # =>Cefepime + Diflucan 24H INTERVAL SUMMARY * Awake, eyes open, leans head forward off the pillow to verbal inquiry on her status, afebrile, VSS, confused * CHART REVIEWED: See vitals, labs as per below. * CXR 02/25/17 IMPRESSION: * 1. Enteric tube tip is just beyond the GE junction. Recommend advancing 10 cm. * 2. Stable position of left IJ catheter and endotracheal tube. * 3. Improved aeration with residual bilateral perihilar and left basilar opacities representing resolving pulmonary edema or infection. * 4. Aortic atherosclerotic calcifications. * 5. Cardiac valve replacement. PHYSICAL EXAMINATION: GENERAL: VSS, afebrile, awake and responsive, confused HEENT: ETT secure to face & Vent, crusted secretions on teeth, dry mucous membranes NECK: Supple, trach midline CHEST: Equal chest rise bilaterally, without dyspnea on observation HEART: Rate controlled ABDOMEN: Soft, NT, ND : FC, clear yellow urine EXT: Warm, no edema SKIN: No rash, no diaphoresis ID ASSESSMENT: 86 yo F PMHx CVA-chronic vascular dementia, MVR, breast augmentation, peg, admit [facility] ICU: 1. Sepsis, status post shock. * Leukocytosis overall improved * Afebrile, VSS 2. S/P BCX on admission (+)1/2 bottles: CoNS + Corynebacterium => Both skin florian, likely contaminated sample * Repeat blood cultures being negative. 3. Acute respiratory failure, possibly secondary to healthcare-associated pneumonia. 5. Atrial fibrillation and chronic recurrent congestive heart failure-> CXR w/ pulmonary edema 6. Transaminitis secondary to shock liver, improving. 7. Atherosclerosis great vessels/ascending aorta 8. Cerebral vascular disease: extensive chronic microvascular ischemic changes. Chronic infarcts in the right occipital lobe and right cerebellar hemisphere. 9. Oral candidias RESPIRATORY CULTURE Final Organism 1 CARLOS ALBICANS QUANTITY SCANT GROWTH (-)MRSA ABX ALLERGIES: None to ABX INVASIVES: PIV, Endotracheal tube, NG tube, Naj[place], left IJ triple-lumen catheter. CURRENT ABX: =>Cefepime + Diflucan ID RECOMMENDATIONS/PLAN: 1. Continue current ABX over the weekend 2. ID team consultants will continue to follow . Problems: Consultation Date/Type/Reason Admit Date/Time Feb 20, 2017 at 21:09 Initial Consult Date Exam/Review of Systems Vital Signs Vitals Vital Signs Date Time Temp Pulse Resp B/P Pulse Ox O2 Delivery O2 Flow Rate FiO2 02/26/17 10:57 118 18 141/63 99 Mechanical Ventilator 02/26/17 07:30 97.8 02/26/17 05:44 30 Intake and Output 02/25/17 02/25/17 02/26/17 15:00 23:00 07:00 Intake Total 565 ml 1220 ml Output Total 170 ml 311 ml Balance 395 ml 909 ml Results Result Diagram: 02/26/17 0430 02/26/17 0430 Results 24 hrs Laboratory Tests Test 02/26/17 04:30 White Blood Count 13.2 H Red Blood Count 3.66 L Hemoglobin 11.3 L Hematocrit 34.2 L Mean Corpuscular Volume 93.4 Mean Corpuscular Hemoglobin 30.9 Mean Corpuscular Hemoglobin Concent 33.0 Red Cell Distribution Width 15.9 H Platelet Count 243 Mean Platelet Volume 12.7 H Neutrophils % 87.5 H Lymphocytes % 5.3 L Monocytes % 6.1 Eosinophils % 0.1 Basophils % 0.5 Nucleated Red Blood Cells % 0.2 H Neutrophils # 11.5 H Lymphocytes # 0.7 L Monocytes # 0.8 Eosinophils # 0.0 Basophils # 0.1 Nucleated Red Blood Cells # 0.0 Prothrombin Time 36.7 H Prothrombin Time Ratio 2.9 INR International Normalized Ratio 3.63 Sodium Level 144 Potassium Level 3.7 Chloride Level 109 Carbon Dioxide Level 23 Anion Gap 16 Blood Urea Nitrogen 26 H Creatinine 0.96 Glucose Level 112 Calcium Level 8.1 L Magnesium Level 1.9 Total Bilirubin 1.3 Direct Bilirubin 0.30 H Indirect Bilirubin 1.0 Aspartate Amino Transf (AST/SGOT) 121 H Alanine Aminotransferase (ALT/SGPT) 465 H Alkaline Phosphatase 85 Total Protein 5.3 L Albumin 2.4 L Medications Medications Current Medications Ondansetron HCl (Zofran Inj) 4 mg Q6H PRN IV NAUSEA AND/OR VOMITING; Start 03/27 at 21:30 Acetaminophen (Tylenol Liquid) 650 mg Q6H PRN PO PAIN LEVEL 1-3 OR FEVER; Start 02/20/17 at 21:30 Morphine Sulfate (morphine) 2 mg Q4H PRN IV PAIN LEVEL 7-10 Last administered on 02/26/17 02:15; Admin Dose 1 MG; Start 02/20/17 at 21:30 Magnesium Hydroxide (Milk Of Mag) 30 ml DAILY PRN PO CONSTIPATION; Start 02/20 at 21:30 Atorvastatin Calcium (Lipitor) 40 mg QHS PO Last administered on 02/25/17 21: 28; Admin Dose 40 MG; Start 02/21/17 at 21:00 Famotidine (Pepcid) 20 mg HS GTB Last administered on 02/25/17 21:28; Admin Dose 20 MG; Start 02/21/17 at 21:00 Amiodarone HCl (Cordarone) 100 mg DAILY PO Last administered on 02/26/17 08: 56; Admin Dose 100 MG; Start 02/21/17 at 09:30 Warfarin Sodium (Coumadin) 1 mg DAILY PO ; Start 02/21/17 at 09:30; Status Future Hold Miscellaneous Information (Pending Santyl Order For Wound Care) This patient sadler... PRN PRN XX WOUND CARE; Start 02/21/17 at 10:00 Collagenase (Santyl) 1 applic DAILY TOP Last administered on 02/26/17 08:57; Admin Dose 1 APPLIC; Start 02/22/17 at 10:00 Ascorbic Acid (Vitamin C) 500 mg DAILY PO Last administered on 02/26/17 08:57 ; Admin Dose 500 MG; Start 02/23/17 at 09:00 Calcium/Vitamin D (Oyster Shell/ Vit-D (500/200)) 1 tab DAILY PO Last administered on 02/26/17 08:57; Admin Dose 1 TAB; Start 02/23/17 at 09:00 Docusate Sodium (Colace) 100 mg BID PO Last administered on 02/26/17 08:57; Admin Dose 100 MG; Start 02/22/17 at 21:00 Ferrous Sulfate (Ferrous Sulfate (Ec)) 325 mg DAILY PO Last administered on 08:57; Admin Dose 325 MG; Start 02/23/17 at 09:00 Furosemide (Lasix) 20 mg DAILY PO Last administered on 02/26/17 08:56; Admin Dose 20 MG; Start 02/23/17 at 09:00 Multivitamins Therapeutic 1 tab 1 tab DAILY PO Last administered on 02/26/17 08:57; Admin Dose 1 TAB; Start 02/23/17 at 09:00 Fentanyl (Sublimaze) 100 ml @ 2.5 mls/hr TITRATE IV Last administered on 02/26 05:12; Admin Dose 10 MLS/HR; Start 02/22/17 at 10:00 Metoprolol Tartrate 5 mg 5 mg Q6H PRN IV ELEVATED HEART RATE Last administered on 02/26/17 10:52; Admin Dose 5 MG; Start 02/23/17 at 02:40 Midazolam HCl 50 ml @ 1 mls/hr TITRATE PRN IV SEDATION; Start 02/23/17 at 11: 30 Sodium Bicarbonate 100 meq/Dextrose/ Sodium Chloride 1,000 ml @ 100 mls/hr Q10H IV Last administered on 02/26/17 05:12; Admin Dose 100 MLS/HR; Start at 11:00 Cefepime HCl (Maxipime 1gm/50 ml (Pmx)) 50 ml @ 100 mls/hr Q24H IVPB Last administered on 02/25/17 21:28; Admin Dose 100 MLS/HR; Start 02/24/17 at 21: 00 Fluconazole (Diflucan) 100 mg DAILY PO Last administered on 02/26/17 08:57; Admin Dose 100 MG; Start 02/24/17 at 13:30 LITZY GRAYSON NP Feb 26, 2017 11:35
--- NOTE | 2017-02-26 17:18 | PN ---
Date/Time of Note Date/Time of Note DATE: 02/26/17 TIME: 17:14 Assessment/Plan VTE Prophylaxis VTE Prophylaxis Intervention: SCD's Lines/Catheters IV Catheter Type (from Nrsg): Central Line Central line still needed: No Urinary Cath still in place: Yes Reason Cath still needed: urinary retention (critically ill) Assessment/Plan Assessment/Plan 86 yo F with advanced dementia, AFib, hypothyroid admitted for acute hypoxic respiratory and sepsis, possibly from pneumonia. Also complicated by shock liver which is resolving PLAN #sepsis: ID has narrowed meropenem to cefepime. fluc added by ID given scot in respiratory culture RVP negative Of note, pt has been hospitalized since 02.20 which makes this day 7 of antimicrobials. Would consider stopping by Tuesday at the latest. Will advise incoming team to dw ID #hypoxic respiratory failure: wean vent as tolerated #non anion gap metabolic acidosis: check urine lytes to eval for RTA-->urine chloride pending will talk to RN in AM as I ordered this test on 02.24 #KAVYA:RESOLVED #pressure ulcer: wound care cs #proteinuria: urine p/c ~0.3 g proteinuria per day-->outpatient follow up. consider repeat UA closer to discharge #transaminitis: shock liver. improving. viral hepatitis seros negative #AFib: cont home amio and warfarin (as feasible based on INR goal 2-3) #chronic systolic HF: resumed lasix/bb #hypothyroid: cont home Synthroid #FEN: start TFs #prophx: DVT, GI while on vent dispo/goals of care: spoke with son again over the phone .. dw son that while pt's condition has not significantly worsened over the past 3 days, it has also not significantly improved. Asked son if mom is unable to be weaned off vent, does he think she would want to be trach'ed for prolonged vent weaning. Son said he thinks his mom would not want that. Son states he is in [facility] through the weekend for work. Wants to discuss his mom's clinical status with family and close friends and requested that we touch base next on Tuesday for mutual updates. critical care time: 30 minutes Subjective 24 Hr Interval Summary Free Text/Dictation more tired looking this AM Exam/Review of Systems Vital Signs Vitals Vital Signs Date Time Temp Pulse Resp B/P Pulse Ox O2 Delivery O2 Flow Rate FiO2 02/26/17 15:00 119 26 150/94 98 Mechanical Ventilator 02/26/17 13:24 30 02/26/17 07:30 97.8 Intake and Output 02/25/17 02/25/17 02/26/17 14:59 22:59 06:59 Intake Total 425 ml 1220 ml Output Total 140 ml 300 ml Balance 285 ml 920 ml Exam nad no mrg poor air movement abd soft no rashes Results Result Diagram: 02/26/170 02/26/17 0430 Results 24 hrs Laboratory Tests Test 02/26/17 04:30 02/26/17 12:02 White Blood Count 13.2 H Red Blood Count 3.66 L Hemoglobin 11.3 L Hematocrit 34.2 L Mean Corpuscular Volume 93.4 Mean Corpuscular Hemoglobin 30.9 Mean Corpuscular Hemoglobin Concent 33.0 Red Cell Distribution Width 15.9 H Platelet Count 243 Mean Platelet Volume 12.7 H Neutrophils % 87.5 H Lymphocytes % 5.3 L Monocytes % 6.1 Eosinophils % 0.1 Basophils % 0.5 Nucleated Red Blood Cells % 0.2 H Neutrophils # 11.5 H Lymphocytes # 0.7 L Monocytes # 0.8 Eosinophils # 0.0 Basophils # 0.1 Nucleated Red Blood Cells # 0.0 Prothrombin Time 36.7 H Prothrombin Time Ratio 2.9 INR International Normalized Ratio 3.63 Sodium Level 144 Potassium Level 3.7 Chloride Level 109 Carbon Dioxide Level 23 Anion Gap 16 Blood Urea Nitrogen 26 H Creatinine 0.96 Glucose Level 112 Calcium Level 8.1 L Magnesium Level 1.9 Total Bilirubin 1.3 Direct Bilirubin 0.30 H Indirect Bilirubin 1.0 Aspartate Amino Transf (AST/SGOT) 121 H Alanine Aminotransferase (ALT/SGPT) 465 H Alkaline Phosphatase 85 Total Protein 5.3 L Albumin 2.4 L Lab Scanned Report REFERENCE LAB Medications Medications Current Medications Ondansetron HCl (Zofran Inj) 4 mg Q6H PRN IV NAUSEA AND/OR VOMITING; Start 03/27 at 21:30 Acetaminophen (Tylenol Liquid) 650 mg Q6H PRN PO PAIN LEVEL 1-3 OR FEVER; Start 02/20/17 at 21:30 Morphine Sulfate (morphine) 2 mg Q4H PRN IV PAIN LEVEL 7-10 Last administered on 02/26/17t 14:21; Admin Dose 2 MG; Start 02/20/17 at 21:30 Magnesium Hydroxide (Milk Of Mag) 30 ml DAILY PRN PO CONSTIPATION; Start 02/20 at 21:30 Atorvastatin Calcium (Lipitor) 40 mg QHS PO Last administered on 02/25/17 21: 28; Admin Dose 40 MG; Start 02/21/17 at 21:00 Famotidine (Pepcid) 20 mg HS GTB Last administered on 02/25/17 21:28; Admin Dose 20 MG; Start 02/21/17 at 21:00 Amiodarone HCl (Cordarone) 100 mg DAILY PO Last administered on 02/26/17 08: 56; Admin Dose 100 MG; Start 02/21/17 at 09:30 Warfarin Sodium (Coumadin) 1 mg DAILY PO ; Start 02/21/17 at 09:30; Status Future Hold Miscellaneous Information (Pending Santyl Order For Wound Care) This patient sadler... PRN PRN XX WOUND CARE; Start 02/21/17 at 10:00 Collagenase (Santyl) 1 applic DAILY TOP Last administered on 02/26/17 08:57; Admin Dose 1 APPLIC; Start 02/22/17 at 10:00 Ascorbic Acid (Vitamin C) 500 mg DAILY PO Last administered on 02/26/17 08:57 ; Admin Dose 500 MG; Start 02/23/17 at 09:00 Calcium/Vitamin D (Oyster Shell/ Vit-D (500/200)) 1 tab DAILY PO Last administered on 02/26/17 08:57; Admin Dose 1 TAB; Start 02/23/17 at 09:00 Docusate Sodium (Colace) 100 mg BID PO Last administered on 02/26/17 08:57; Admin Dose 100 MG; Start 02/22/17 at 21:00 Ferrous Sulfate (Ferrous Sulfate (Ec)) 325 mg DAILY PO Last administered on 08:57; Admin Dose 325 MG; Start 02/23/17 at 09:00 Furosemide (Lasix) 20 mg DAILY PO Last administered on 02/26/17 08:56; Admin Dose 20 MG; Start 02/23/17 at 09:00 Multivitamins Therapeutic 1 tab 1 tab DAILY PO Last administered on 02/26/17 08:57; Admin Dose 1 TAB; Start 02/23/17 at 09:00 Fentanyl (Sublimaze) 100 ml @ 2.5 mls/hr TITRATE IV Last administered on 02/26 05:12; Admin Dose 10 MLS/HR; Start 02/22/17 at 10:00 Metoprolol Tartrate 5 mg 5 mg Q6H PRN IV ELEVATED HEART RATE Last administered on 02/26/17 10:52; Admin Dose 5 MG; Start 02/23/17 at 02:40 Midazolam HCl 50 ml @ 1 mls/hr TITRATE PRN IV SEDATION; Start 02/23/17 at 11: 30 Sodium Bicarbonate 100 meq/Dextrose/ Sodium Chloride 1,000 ml @ 100 mls/hr Q10H IV Last administered on 02/26/17 05:12; Admin Dose 100 MLS/HR; Start at 11:00 Cefepime HCl (Maxipime 1gm/50 ml (Pmx)) 50 ml @ 100 mls/hr Q24H IVPB Last administered on 02/25/17 21:28; Admin Dose 100 MLS/HR; Start 02/24/17 at 21: 00 Fluconazole (Diflucan) 100 mg DAILY PO Last administered on 02/26/17 08:57; Admin Dose 100 MG; Start 02/24/17 at 13:30 JEMIMA PAZ MD Feb 26, 2017 17:18
[2017-02-26] MEDS: ATORVASTATIN 40 MG TAB PO SCH (20:40)
[2017-02-26] MEDS: CEFEPIME 1GM/50 ML (PMX) 50 ML IVPB SCH (20:40)
[2017-02-26] MEDS: FAMOTIDINE 20 MG TAB GTB SCH (20:40)
[2017-02-27] VITALS (37 sets, daily range): BP systolic 99–171; BP diastolic 42–134; PULSE 87–146; RESP 16–26
[2017-02-27] MEDS: morphine 2 MG INJ IV PRN ×3 (01:39→21:34)
[2017-02-27] MEDS: LEVOTHYROXINE 150 MCG TAB PO SCH (06:25)
[2017-02-27] MEDS: METOPROLOL 5 MG INJ IV PRN ×2 (06:26→21:40)
[2017-02-27 06:54] LABS: ABNORMAL IP MESSAGE 1; BASOPHIL # 0.1 10^3/ul (0.0-0.1); BASOPHILS % 0.3 % (0.0-2.0); HEMATOCRIT 38.3 % (37.0-47.0); HEMOGLOBIN 12.7 g/dl (12.0-16.0); LYMPHOCYTES # 0.7 10^3/ul (0.8-2.9); LYMPHOCYTES % 4.7 % (15.0-51.0); MEAN CORPUSCULAR HEMOGLOBIN 30.7 pg (29.0-33.0); MEAN CORPUSCULAR HGB CONC 33.2 g/dl (32.0-37.0); MEAN CORPUSCULAR VOLUME 92.5 fl (82.0-101.0); MEAN PLATELET VOLUME 12.2 fl (7.4-10.4); MONOCYTE # 0.9 10^3/ul (0.3-0.9); NEUTROPHIL # 13.5 10^3/ul (1.6-7.5); NEUTROPHILS % 88.5 % (39.0-77.0); PLATELET COUNT 199 10^3/UL (140-415); RED BLOOD COUNT 4.14 10^6/ul (4.20-5.40); RED CELL DISTRIBUTION WIDTH 15.9 % (11.5-14.5); WHITE BLOOD COUNT 15.2 10^3/ul (4.8-10.8)
[2017-02-27 06:57] LABS: POSITIVE DIFF @See below
[2017-02-27 07:14] LABS: ALBUMIN 2.9 g/dl (3.3-4.9); ALBUMIN/GLOBULIN RATIO 0.85; BILIRUBIN,DIRECT 0.6 mg/dl (0.00-0.20); BILIRUBIN,TOTAL 1.6 mg/dl (0.2-1.3); CALCIUM 8.1 mg/dl (8.4-10.2); CREATININE 1.06 mg/dl (0.44-1.00); POTASSIUM 3.8 mmol/L (3.5-5.1); TOTAL PROTEIN 6.3 g/dl (6.1-8.1)
[2017-02-27 07:22] LABS: INR 4.08; PROTIME 40.3 Sec (12.2-14.2); PT RATIO 3.1
[2017-02-27] MEDS: SODIUM BICARBONATE (IV ADD) 100 MEQ in DEXTROSE 5%-0.45% NACL 900 ML IV SCH ×2 (08:21→19:15)
[2017-02-27] MEDS: DOCUSATE SODIUM 100 MG CAP PO SCH ×2 (09:53→20:58)
[2017-02-27] MEDS: FERROUS SULFATE (EC) 325 MG TAB PO SCH (09:53)
[2017-02-27] MEDS: CALCIUM/VITAMIN D (500/200) TAB PO SCH (09:53)
[2017-02-27] MEDS: MULTIVITAMINS THERAPEUTIC TAB PO SCH (09:53)
[2017-02-27] MEDS: AMIODARONE 200 MG TAB PO SCH (09:54)
[2017-02-27] MEDS: FUROSEMIDE 20 MG TAB PO SCH (09:54)
[2017-02-27] MEDS: ASCORBIC ACID 500 MG TAB PO SCH (09:54)
[2017-02-27] MEDS: FLUCONAZOLE 100 MG TAB PO SCH (09:54)
[2017-02-27] MEDS: COLLAGENASE 30 GM TUBE TOP SCH (09:55)
--- NOTE | 2017-02-27 11:14 | CONS ---
Date/Time of Note Date/Time of Note DATE: 02/27/17 TIME: 11:11 Assessment/Plan Assessment/Plan Additional Assessment/Plan Ventilator setting; AC of 16, tidal volume 450, PEEP of 5, 30% FiO2. Assessment and recommendations; 1. Patient admitted with respiratory failure due to bilateral pneumonia with significant clinical and radiological improvement. 2. Advanced dementia. 3. Chronic atrial fibrillation. 4. Improvement in transaminases, likely infection related. Patient will be given a CPAP trial in order to wean her from invasive mechanical ventilation. Meanwhile continue current supportive care. Consultation Date/Type/Reason Admit Date/Time Feb 20, 2017 at 21:09 Type of Consultation: Pulmonary/critical care 24 HR Interval Summary Free Text/Dictation Patient's condition is critical. Still requiring full invasive mechanical ventilation. Patient however has been off sedation since yesterday morning. Patient remains minimally responsive. Has remained hemodynamically stable though. General exam; elderly woman, orally intubated, awake but unresponsive to any commands. Currently no distress. Exam/Review of Systems Vital Signs Vitals Vital Signs Date Time Temp Pulse Resp B/P Pulse Ox O2 Delivery O2 Flow Rate FiO2 02/27/17 11:01 122 18 99 30 02/27/17 09:00 170/58 Mechanical Ventilator 02/27/17 08:00 97.6 Intake and Output 02/26/17 02/26/17 02/27/17 15:00 23:00 07:00 Intake Total 1100 ml 600 ml 940 ml Output Total 288 ml 150 ml 225 ml Balance 812 ml 450 ml 715 ml Exam HEENT exam; supple neck, no JVD. No lymphadenopathy. Midline trachea. No thyromegaly. Has multiple carious teeth. Orally intubated. Has bilateral surgical pupils. No neck masses. Chest exam; minimally decreased breath sound lung bases bilaterally. Upper lobes are clear to auscultation. S1-S2 audible, no murmurs. Irregular rhythm. Abdomen exam; soft, nondistended. No organomegaly. Bowel sounds audible. Scaphoid. Extremity exam; no peripheral edema. LOOM STOP CHECKER exam; patient is awake but unresponsive to any commands. Results Result Diagram: 02/27/17 0635 02/27/17 0635 Results 24 hrs Laboratory Tests Test 02/26/17 12:02 02/27/17 06:35 Lab Scanned Report REFERENCE LAB White Blood Count 15.2 H Red Blood Count 4.14 L Hemoglobin 12.7 Hematocrit 38.3 Mean Corpuscular Volume 92.5 Mean Corpuscular Hemoglobin 30.7 Mean Corpuscular Hemoglobin Concent 33.2 Red Cell Distribution Width 15.9 H Platelet Count 199 Mean Platelet Volume 12.2 H Neutrophils % 88.5 H Lymphocytes % 4.7 L Monocytes % 6.0 Eosinophils % 0.0 Basophils % 0.3 Nucleated Red Blood Cells % 0.0 Neutrophils # 13.5 H Lymphocytes # 0.7 L Monocytes # 0.9 Eosinophils # 0.0 Basophils # 0.1 Nucleated Red Blood Cells # 0.0 Prothrombin Time 40.3 H Prothrombin Time Ratio 3.1 INR International Normalized Ratio 4.08 Sodium Level 144 Potassium Level 3.8 Chloride Level 110 Carbon Dioxide Level 22 Anion Gap 16 Blood Urea Nitrogen 28 H Creatinine 1.06 H Glucose Level 162 Calcium Level 8.1 L Total Bilirubin 1.6 H Direct Bilirubin 0.60 #H Indirect Bilirubin 1.0 Aspartate Amino Transf (AST/SGOT) 129 H Alanine Aminotransferase (ALT/SGPT) 415 H Alkaline Phosphatase 92 Total Protein 6.3 # Albumin 2.9 L Globulin 3.40 H Albumin/Globulin Ratio 0.85 Medications Medications Current Medications Ondansetron HCl (Zofran Inj) 4 mg Q6H PRN IV NAUSEA AND/OR VOMITING; Start 03/27 at 21:30 Acetaminophen (Tylenol Liquid) 650 mg Q6H PRN PO PAIN LEVEL 1-3 OR FEVER; Start 02/20/17 at 21:30 Morphine Sulfate (morphine) 2 mg Q4H PRN IV PAIN LEVEL 7-10 Last administered on 02/27/17 01:39; Admin Dose 2 MG; Start 02/20/17 at 21:30 Magnesium Hydroxide (Milk Of Mag) 30 ml DAILY PRN PO CONSTIPATION; Start 02/20 at 21:30 Atorvastatin Calcium (Lipitor) 40 mg QHS PO Last administered on 02/26/17 20: 40; Admin Dose 40 MG; Start 02/21/17 at 21:00 Famotidine (Pepcid) 20 mg HS GTB Last administered on 02/26/17 20:40; Admin Dose 20 MG; Start 02/21/17 at 21:00 Amiodarone HCl (Cordarone) 100 mg DAILY PO Last administered on 02/27/17 09: 54; Admin Dose 100 MG; Start 02/21/17 at 09:30 Warfarin Sodium (Coumadin) 1 mg DAILY PO ; Start 02/21/17 at 09:30; Status Future Hold Miscellaneous Information (Pending Santyl Order For Wound Care) This patient sadler... PRN PRN XX WOUND CARE; Start 02/21/17 at 10:00 Collagenase (Santyl) 1 applic DAILY TOP Last administered on 02/27/17 09:55; Admin Dose 1 APPLIC; Start 02/22/17 at 10:00 Ascorbic Acid (Vitamin C) 500 mg DAILY PO Last administered on 02/27/17 09:54 ; Admin Dose 500 MG; Start 02/23/17 at 09:00 Calcium/Vitamin D (Oyster Shell/ Vit-D (500/200)) 1 tab DAILY PO Last administered on 02/27/17 09:53; Admin Dose 1 TAB; Start 02/23/17 at 09:00 Docusate Sodium (Colace) 100 mg BID PO Last administered on 02/27/17 09:53; Admin Dose 100 MG; Start 02/22/17 at 21:00 Ferrous Sulfate (Ferrous Sulfate (Ec)) 325 mg DAILY PO Last administered on 09:53; Admin Dose 325 MG; Start 02/23/17 at 09:00 Furosemide (Lasix) 20 mg DAILY PO Last administered on 02/27/17 09:54; Admin Dose 20 MG; Start 02/23/17 at 09:00 Multivitamins Therapeutic 1 tab 1 tab DAILY PO Last administered on 02/27/17 09:53; Admin Dose 1 TAB; Start 02/23/17 at 09:00 Fentanyl (Sublimaze) 100 ml @ 2.5 mls/hr TITRATE IV Last administered on 02/26 05:12; Admin Dose 10 MLS/HR; Start 02/22/17 at 10:00 Metoprolol Tartrate 5 mg 5 mg Q6H PRN IV ELEVATED HEART RATE Last administered on 02/27/17 06:26; Admin Dose 5 MG; Start 02/23/17 at 02:40 Midazolam HCl 50 ml @ 1 mls/hr TITRATE PRN IV SEDATION; Start 02/23/17 at 11: 30 Sodium Bicarbonate 100 meq/Dextrose/ Sodium Chloride 1,000 ml @ 100 mls/hr Q10H IV Last administered on 02/27/17 08:21; Admin Dose 100 MLS/HR; Start at 11:00 Cefepime HCl (Maxipime 1gm/50 ml (Pmx)) 50 ml @ 100 mls/hr Q24H IVPB Last administered on 02/26/17 20:40; Admin Dose 100 MLS/HR; Start 02/24/17 at 21: 00 Fluconazole (Diflucan) 100 mg DAILY PO Last administered on 02/27/17 09:54; Admin Dose 100 MG; Start 02/24/17 at 13:30 THERESA REYES Feb 27, 2017 11:14
--- NOTE | 2017-02-27 12:43 | CONS ---
Date/Time of Note Date/Time of Note DATE: 02/27/17 TIME: 12:39 Assessment/Plan Assessment/Plan Chief Complaint/Hosp Course ID PROGRESS NOTE CURRENT ABX: DAY # =>Cefepime + Diflucan s/p Vanco IV -> DC'd 02/22 24H INTERVAL SUMMARY * Aeke/alert/confused, afebrile, VSS, ETT * CHART REVIEWED: See vitals, labs as per below..WBC slightly elevated, Afib w/ RVR HR 120's, transaminitis downtrending PHYSICAL EXAMINATION: GENERAL: VSS, afebrile, awake and responsive, confused HEENT: ETT secure to face & Vent, crusted secretions on teeth, dry mucous membranes NECK: Supple, trach midline CHEST: Equal chest rise bilaterally, without dyspnea on observation HEART: Rate controlled ABDOMEN: Soft, NT, ND : FC, clear yellow urine EXT: Warm, no edema SKIN: No rash, no diaphoresis ID ASSESSMENT: 86 yo F PMHx CVA-chronic vascular dementia, MVR, breast augmentation, peg, admit [facility] ICU: 1. Sepsis, status post shock. * Leukocytosis -> increasing ?need to restart Vanco IV? * Afebrile, VSS 2. S/P BCX on admission (+)1/2 bottles: CoNS + Corynebacterium => Both skin florian, likely contaminated sample * Repeat blood cultures being negative. 3. Acute respiratory failure, possibly secondary to healthcare-associated pneumonia. 5. Atrial fibrillation and chronic recurrent congestive heart failure-> CXR w/ pulmonary edema 6. Transaminitis secondary to shock liver, improving. 7. Atherosclerosis great vessels/ascending aorta 8. Cerebral vascular disease: extensive chronic microvascular ischemic changes. Chronic infarcts in the right occipital lobe and right cerebellar hemisphere. 9. Oral candidias RESPIRATORY CULTURE Final Organism 1 CARLOS ALBICANS QUANTITY SCANT GROWTH (-)MRSA ABX ALLERGIES: None to ABX INVASIVES: PIV, Endotracheal tube, NG tube, Najera, left IJ triple-lumen catheter. CURRENT ABX: =>Cefepime + Diflucan s/p Vanco IV -> DC'd 02/22 ID RECOMMENDATIONS/PLAN: 1. Continue current ABX over the weekend -> no fevers, if WBC continues to rise and or fevers -> May need to restart Vanco IV 2. ID team consultants will continue to follow . Problems: Consultation Date/Type/Reason Admit Date/Time Feb 20, 2017 at 21:09 Exam/Review of Systems Vital Signs Vitals Vital Signs Date Time Temp Pulse Resp B/P Pulse Ox O2 Delivery O2 Flow Rate FiO2 02/27/17 12:00 116 24 171/82 100 Mechanical Ventilator 02/27/17 11:01 30 02/27/17 11:00 97.7 Intake and Output 02/26/17 02/26/17 02/27/17 15:00 23:00 07:00 Intake Total 1100 ml 600 ml 940 ml Output Total 288 ml 150 ml 225 ml Balance 812 ml 450 ml 715 ml Results Result Diagram: 02/27/17 0635 02/27/17 0635 Results 24 hrs Laboratory Tests Test 02/27/17 06:35 White Blood Count 15.2 H Red Blood Count 4.14 L Hemoglobin 12.7 Hematocrit 38.3 Mean Corpuscular Volume 92.5 Mean Corpuscular Hemoglobin 30.7 Mean Corpuscular Hemoglobin Concent 33.2 Red Cell Distribution Width 15.9 H Platelet Count 199 Mean Platelet Volume 12.2 H Neutrophils % 88.5 H Lymphocytes % 4.7 L Monocytes % 6.0 Eosinophils % 0.0 Basophils % 0.3 Nucleated Red Blood Cells % 0.0 Neutrophils # 13.5 H Lymphocytes # 0.7 L Monocytes # 0.9 Eosinophils # 0.0 Basophils # 0.1 Nucleated Red Blood Cells # 0.0 Prothrombin Time 40.3 H Prothrombin Time Ratio 3.1 INR International Normalized Ratio 4.08 Sodium Level 144 Potassium Level 3.8 Chloride Level 110 Carbon Dioxide Level 22 Anion Gap 16 Blood Urea Nitrogen 28 H Creatinine 1.06 H Glucose Level 162 Calcium Level 8.1 L Total Bilirubin 1.6 H Direct Bilirubin 0.60 #H Indirect Bilirubin 1.0 Aspartate Amino Transf (AST/SGOT) 129 H Alanine Aminotransferase (ALT/SGPT) 415 H Alkaline Phosphatase 92 Total Protein 6.3 # Albumin 2.9 L Globulin 3.40 H Albumin/Globulin Ratio 0.85 Medications Medications Current Medications Ondansetron HCl (Zofran Inj) 4 mg Q6H PRN IV NAUSEA AND/OR VOMITING; Start 03/27 at 21:30 Acetaminophen (Tylenol Liquid) 650 mg Q6H PRN PO PAIN LEVEL 1-3 OR FEVER; Start 02/20/17 at 21:30 Morphine Sulfate (morphine) 2 mg Q4H PRN IV PAIN LEVEL 7-10 Last administered on 02/27/17 11:15; Admin Dose 2 MG; Start 02/20/17 at 21:30 Magnesium Hydroxide (Milk Of Mag) 30 ml DAILY PRN PO CONSTIPATION; Start 02/20 at 21:30 Atorvastatin Calcium (Lipitor) 40 mg QHS PO Last administered on 02/26/17 20: 40; Admin Dose 40 MG; Start 02/21/17 at 21:00 Famotidine (Pepcid) 20 mg HS GTB Last administered on 02/26/17 20:40; Admin Dose 20 MG; Start 02/21/17 at 21:00 Amiodarone HCl (Cordarone) 100 mg DAILY PO Last administered on 02/27/17 09: 54; Admin Dose 100 MG; Start 02/21/17 at 09:30 Warfarin Sodium (Coumadin) 1 mg DAILY PO ; Start 02/21/17 at 09:30; Status Future Hold Miscellaneous Information (Pending Santyl Order For Wound Care) This patient sadler... PRN PRN XX WOUND CARE; Start 02/21/17 at 10:00 Collagenase (Santyl) 1 applic DAILY TOP Last administered on 02/27/17 09:55; Admin Dose 1 APPLIC; Start 02/22/17 at 10:00 Ascorbic Acid (Vitamin C) 500 mg DAILY PO Last administered on 02/27/17 09:54 ; Admin Dose 500 MG; Start 02/23/17 at 09:00 Calcium/Vitamin D (Oyster Shell/ Vit-D (500/200)) 1 tab DAILY PO Last administered on 02/27/17 09:53; Admin Dose 1 TAB; Start 02/23/17 at 09:00 Docusate Sodium (Colace) 100 mg BID PO Last administered on 02/27/17 09:53; Admin Dose 100 MG; Start 02/22/17 at 21:00 Ferrous Sulfate (Ferrous Sulfate (Ec)) 325 mg DAILY PO Last administered on 09:53; Admin Dose 325 MG; Start 02/23/17 at 09:00 Furosemide (Lasix) 20 mg DAILY PO Last administered on 02/27/17 09:54; Admin Dose 20 MG; Start 02/23/17 at 09:00 Multivitamins Therapeutic 1 tab 1 tab DAILY PO Last administered on 02/27/17 09:53; Admin Dose 1 TAB; Start 02/23/17 at 09:00 Fentanyl (Sublimaze) 100 ml @ 2.5 mls/hr TITRATE IV Last administered on 02/26 05:12; Admin Dose 10 MLS/HR; Start 02/22/17 at 10:00 Metoprolol Tartrate 5 mg 5 mg Q6H PRN IV ELEVATED HEART RATE Last administered on 02/27/17 06:26; Admin Dose 5 MG; Start 02/23/17 at 02:40 Midazolam HCl 50 ml @ 1 mls/hr TITRATE PRN IV SEDATION; Start 02/23/17 at 11: 30 Sodium Bicarbonate 100 meq/Dextrose/ Sodium Chloride 1,000 ml @ 100 mls/hr Q10H IV Last administered on 02/27/17 08:21; Admin Dose 100 MLS/HR; Start at 11:00 Cefepime HCl (Maxipime 1gm/50 ml (Pmx)) 50 ml @ 100 mls/hr Q24H IVPB Last administered on 02/26/17 20:40; Admin Dose 100 MLS/HR; Start 02/24/17 at 21: 00 Fluconazole (Diflucan) 100 mg DAILY PO Last administered on 02/27/17 09:54; Admin Dose 100 MG; Start 02/24/17 at 13:30 LITZY GRAYSON NP Feb 27, 2017 12:43
--- NOTE | 2017-02-27 15:24 | PN ---
Date/Time of Note Date/Time of Note DATE: 02/27/17 TIME: 15:15 Assessment/Plan VTE Prophylaxis VTE Prophylaxis Intervention: SCD's Lines/Catheters IV Catheter Type (from Nrsg): Peripheral IV Urinary Cath still in place: Yes Reason Cath still needed: other (indicate) (critically ill) Assessment/Plan Assessment/Plan 86 yo F with advanced dementia, AFib, hypothyroid admitted for acute hypoxic respiratory and sepsis, possibly from pneumonia. Also complicated by shock liver which is resolving PLAN #sepsis: abx as per ID #hypoxic respiratory failure: wean vent as tolerated #KAVYA:RESOLVED #pressure ulcer: wound care on cs #proteinuria: urine p/c ~0.3 g proteinuria per day-->outpatient follow up. consider repeat UA closer to discharge #transaminitis: shock liver. improving. viral hepatitis seros negative #AFib: cont home amio and warfarin (as feasible based on INR goal 2-3) #chronic systolic HF: resumed lasix/bb #hypothyroid: cont home Synthroid #FEN: start TFs #prophx: DVT, GI while on vent dispo/goals of care: spoke with son again over the phone 02.25. dw son that while pt's condition has not significantly worsened over the past 3 days, it has also not significantly improved. Asked son if mom is unable to be weaned off vent, does he think she would want to be trach'ed for prolonged vent weaning. Son said he thinks his mom would not want that. Son states he is in [facility] through the weekend for work. Wants to discuss his mom's clinical status with family and close friends and requested that we touch base next on Tuesday for mutual updates. critical care time: 30 minutes Subjective 24 Hr Interval Summary Free Text/Dictation no significant improvement Exam/Review of Systems Vital Signs Vitals Vital Signs Date Time Temp Pulse Resp B/P Pulse Ox O2 Delivery O2 Flow Rate FiO2 02/27/17 12:58 123 18 100 30 02/27/17 12:00 171/82 Mechanical Ventilator 02/27/17 11:00 97.7 Intake and Output 02/26/17 02/26/17 02/27/17 15:00 23:00 07:00 Intake Total 1100 ml 600 ml 970 ml Output Total 288 ml 150 ml 245 ml Balance 812 ml 450 ml 725 ml Exam nad no mrg lungs clear abd soft no rashes Results Result Diagram: 02/27/17 0635 02/27/17 0635 Results 24 hrs Laboratory Tests Test 02/27/17 06:35 White Blood Count 15.2 H Red Blood Count 4.14 L Hemoglobin 12.7 Hematocrit 38.3 Mean Corpuscular Volume 92.5 Mean Corpuscular Hemoglobin 30.7 Mean Corpuscular Hemoglobin Concent 33.2 Red Cell Distribution Width 15.9 H Platelet Count 199 Mean Platelet Volume 12.2 H Neutrophils % 88.5 H Lymphocytes % 4.7 L Monocytes % 6.0 Eosinophils % 0.0 Basophils % 0.3 Nucleated Red Blood Cells % 0.0 Neutrophils # 13.5 H Lymphocytes # 0.7 L Monocytes # 0.9 Eosinophils # 0.0 Basophils # 0.1 Nucleated Red Blood Cells # 0.0 Prothrombin Time 40.3 H Prothrombin Time Ratio 3.1 INR International Normalized Ratio 4.08 Sodium Level 144 Potassium Level 3.8 Chloride Level 110 Carbon Dioxide Level 22 Anion Gap 16 Blood Urea Nitrogen 28 H Creatinine 1.06 H Glucose Level 162 Calcium Level 8.1 L Total Bilirubin 1.6 H Direct Bilirubin 0.60 #H Indirect Bilirubin 1.0 Aspartate Amino Transf (AST/SGOT) 129 H Alanine Aminotransferase (ALT/SGPT) 415 H Alkaline Phosphatase 92 Total Protein 6.3 # Albumin 2.9 L Globulin 3.40 H Albumin/Globulin Ratio 0.85 Medications Medications Current Medications Ondansetron HCl (Zofran Inj) 4 mg Q6H PRN IV NAUSEA AND/OR VOMITING; Start 03/27 at 21:30 Acetaminophen (Tylenol Liquid) 650 mg Q6H PRN PO PAIN LEVEL 1-3 OR FEVER; Start 02/20/17 at 21:30 Morphine Sulfate (morphine) 2 mg Q4H PRN IV PAIN LEVEL 7-10 Last administered on 02/27/17 11:15; Admin Dose 2 MG; Start 02/20/17 at 21:30 Magnesium Hydroxide (Milk Of Mag) 30 ml DAILY PRN PO CONSTIPATION; Start 02/20 at 21:30 Atorvastatin Calcium (Lipitor) 40 mg QHS PO Last administered on 02/26/17 20: 40; Admin Dose 40 MG; Start 02/21/17 at 21:00 Famotidine (Pepcid) 20 mg HS GTB Last administered on 02/26/17 20:40; Admin Dose 20 MG; Start 02/21/17 at 21:00 Amiodarone HCl (Cordarone) 100 mg DAILY PO Last administered on 02/27/17 09: 54; Admin Dose 100 MG; Start 02/21/17 at 09:30 Warfarin Sodium (Coumadin) 1 mg DAILY PO ; Start 02/21/17 at 09:30; Status Future Hold Miscellaneous Information (Pending Santyl Order For Wound Care) This patient sadler... PRN PRN XX WOUND CARE; Start 02/21/17 at 10:00 Collagenase (Santyl) 1 applic DAILY TOP Last administered on 02/27/17 09:55; Admin Dose 1 APPLIC; Start 02/22/17 at 10:00 Ascorbic Acid (Vitamin C) 500 mg DAILY PO Last administered on 02/27/17 09:54 ; Admin Dose 500 MG; Start 02/23/17 at 09:00 Calcium/Vitamin D (Oyster Shell/ Vit-D (500/200)) 1 tab DAILY PO Last administered on 02/27/17 09:53; Admin Dose 1 TAB; Start 02/23/17 at 09:00 Docusate Sodium (Colace) 100 mg BID PO Last administered on 02/27/17 09:53; Admin Dose 100 MG; Start 02/22/17 at 21:00 Ferrous Sulfate (Ferrous Sulfate (Ec)) 325 mg DAILY PO Last administered on 09:53; Admin Dose 325 MG; Start 02/23/17 at 09:00 Furosemide (Lasix) 20 mg DAILY PO Last administered on 02/27/17 09:54; Admin Dose 20 MG; Start 02/23/17 at 09:00 Multivitamins Therapeutic 1 tab 1 tab DAILY PO Last administered on 02/27/17 09:53; Admin Dose 1 TAB; Start 02/23/17 at 09:00 Fentanyl (Sublimaze) 100 ml @ 2.5 mls/hr TITRATE IV Last administered on 02/26 05:12; Admin Dose 10 MLS/HR; Start 02/22/17 at 10:00 Metoprolol Tartrate 5 mg 5 mg Q6H PRN IV ELEVATED HEART RATE Last administered on 02/27/17 06:26; Admin Dose 5 MG; Start 02/23/17 at 02:40 Midazolam HCl 50 ml @ 1 mls/hr TITRATE PRN IV SEDATION; Start 02/23/17 at 11: 30 Sodium Bicarbonate 100 meq/Dextrose/ Sodium Chloride 1,000 ml @ 100 mls/hr Q10H IV Last administered on 02/27/17 08:21; Admin Dose 100 MLS/HR; Start at 11:00 Cefepime HCl (Maxipime 1gm/50 ml (Pmx)) 50 ml @ 100 mls/hr Q24H IVPB Last administered on 02/26/17 20:40; Admin Dose 100 MLS/HR; Start 02/24/17 at 21: 00 Fluconazole (Diflucan) 100 mg DAILY PO Last administered on 02/27/17 09:54; Admin Dose 100 MG; Start 02/24/17 at 13:30 JEMIMA PAZ MD Feb 27, 2017 15:24
[2017-02-27] MEDS: FAMOTIDINE 20 MG TAB GTB SCH (20:57)
[2017-02-27] MEDS: ATORVASTATIN 40 MG TAB PO SCH (20:57)
[2017-02-27] MEDS: CEFEPIME 1GM/50 ML (PMX) 50 ML IVPB SCH (20:57)
[2017-02-28] VITALS (35 sets, daily range): BP systolic 83–164; BP diastolic 36–85; PULSE 79–138; RESP 16–30
[2017-02-28] MEDS: SODIUM BICARBONATE (IV ADD) 100 MEQ in DEXTROSE 5%-0.45% NACL 900 ML IV SCH ×2 (06:21→21:02)
[2017-02-28] MEDS: LEVOTHYROXINE 150 MCG TAB PO SCH (06:21)
[2017-02-28 06:39] LABS: WHITE BLOOD COUNT 10.7 10^3/ul (4.8-10.8)
[2017-02-28 06:40] LABS: ABNORMAL IP MESSAGE 1; BASOPHILS % 0.3 % (0.0-2.0); EOSINOPHILS % 0.1 % (0.0-7.0); HEMATOCRIT 26.4 % (37.0-47.0); LYMPHOCYTES # 0.6 10^3/ul (0.8-2.9); LYMPHOCYTES % 5.5 % (15.0-51.0); MEAN CORPUSCULAR HEMOGLOBIN 30.7 pg (29.0-33.0); MEAN CORPUSCULAR HGB CONC 30.3 g/dl (32.0-37.0); MEAN CORPUSCULAR VOLUME 101.1 fl (82.0-101.0); MEAN PLATELET VOLUME 11.7 fl (7.4-10.4); MONOCYTE # 0.7 10^3/ul (0.3-0.9); MONOCYTES % 6.6 % (0.0-11.0); NEUTROPHIL # 9.3 10^3/ul (1.6-7.5); NEUTROPHILS % 87.1 % (39.0-77.0); PLATELET COUNT 117 10^3/UL (140-415); RED BLOOD COUNT 2.61 10^6/ul (4.20-5.40)
[2017-02-28 06:54] LABS: POSITIVE DIFF @See below
[2017-02-28 06:59] LABS: PROTIME 73.6 Sec (12.2-14.2); PT RATIO 5.8
[2017-02-28 07:11] LABS: INR 8.72
[2017-02-28 09:20] LABS: ALBUMIN 2.4 g/dl (3.3-4.9); ALBUMIN/GLOBULIN RATIO 0.77; BILIRUBIN,INDIRECT 0.9 mg/dl (0-1.1); BILIRUBIN,TOTAL 0.9 mg/dl (0.2-1.3); CALCIUM 7.7 mg/dl (8.4-10.2); CREATININE 1.11 mg/dl (0.44-1.00); POTASSIUM 3.4 mmol/L (3.5-5.1); TOTAL PROTEIN 5.5 g/dl (6.1-8.1)
--- NOTE | 2017-02-28 09:20 | CONS ---
Date/Time of Note Date/Time of Note DATE: 02/28/17 TIME: 09:18 Consult Date/Type/Reason Admit Date/Time Feb 20, 2017 at 21:09 Type of Consultation: Pulmonary Subjective Patient remains stable. No new events. Agitation off sedation. Currently remains hemodynamically stable. Objective Vital Signs Date Time Temp Pulse Resp B/P Pulse Ox O2 Delivery O2 Flow Rate FiO2 02/28/17 09:00 121 28 153/52 100 Mechanical Ventilator 02/28/17 08:00 98.0 02/28/17 05:15 30 Intake and Output 02/27/17 02/27/17 02/28/17 14:59 22:59 06:59 Intake Total 1140 ml 1120 ml 1260 ml Output Total 197 ml 204 ml 245 ml Balance 943 ml 916 ml 1015 ml Exam PHYSICAL EXAMINATION: GENERAL: Elderly-appearing lady, intubated on mechanical ventilation, anxious with endotracheal tube in place. VITAL SIGNS: HEENT: Dry mucous membranes. Pupils equal and reactive to light. CARDIAC: S1, S2, no added sounds or murmurs. CHEST: Diminished air entry bilaterally. ABDOMEN: Soft, nontender. No guarding or rebound. EXTREMITIES: No cyanosis, clubbing, 1+ edema. NEUROLOGIC: Generalized weakness. Results/Medications Result Diagram: 02/28/17 0826 02/27/17 0635 Results 24 hrs Laboratory Tests Test 02/28/17 08:26 White Blood Count 10.7 # Red Blood Count 2.61 #L Hemoglobin 8.0 #L Hematocrit 26.4 #L Mean Corpuscular Volume 101.1 H Mean Corpuscular Hemoglobin 30.7 Mean Corpuscular Hemoglobin Concent 30.3 L Red Cell Distribution Width 16.0 H Platelet Count 117 #L Mean Platelet Volume 11.7 H Neutrophils % 87.1 H Lymphocytes % 5.5 L Monocytes % 6.6 Eosinophils % 0.1 Basophils % 0.3 Nucleated Red Blood Cells % 0.0 Neutrophils # 9.3 H Lymphocytes # 0.6 L Monocytes # 0.7 Eosinophils # 0.0 Basophils # 0.0 Nucleated Red Blood Cells # 0.0 Prothrombin Time 73.6 #H Prothrombin Time Ratio 5.8 INR International Normalized Ratio 8.72 *H Medications Current Medications Ondansetron HCl (Zofran Inj) 4 mg Q6H PRN IV NAUSEA AND/OR VOMITING; Start 03/27 at 21:30 Acetaminophen (Tylenol Liquid) 650 mg Q6H PRN PO PAIN LEVEL 1-3 OR FEVER; Start 02/20/17 at 21:30 Morphine Sulfate (morphine) 2 mg Q4H PRN IV PAIN LEVEL 7-10 Last administered on 02/27/17 21:34; Admin Dose 2 MG; Start 02/20/17 at 21:30 Magnesium Hydroxide (Milk Of Mag) 30 ml DAILY PRN PO CONSTIPATION; Start 02/20 at 21:30 Atorvastatin Calcium (Lipitor) 40 mg QHS PO Last administered on 02/27/17 20: 57; Admin Dose 40 MG; Start 02/21/17 at 21:00 Famotidine (Pepcid) 20 mg HS GTB Last administered on 02/27/17 20:57; Admin Dose 20 MG; Start 02/21/17 at 21:00 Amiodarone HCl (Cordarone) 100 mg DAILY PO Last administered on 02/27/17 09: 54; Admin Dose 100 MG; Start 02/21/17 at 09:30 Warfarin Sodium (Coumadin) 1 mg DAILY PO ; Start 02/21/17 at 09:30; Status Future Hold Miscellaneous Information (Pending Santyl Order For Wound Care) This patient sadler... PRN PRN XX WOUND CARE; Start 02/21/17 at 10:00 Collagenase (Santyl) 1 applic DAILY TOP Last administered on 02/27/17 09:55; Admin Dose 1 APPLIC; Start 02/22/17 at 10:00 Ascorbic Acid (Vitamin C) 500 mg DAILY PO Last administered on 02/27/17 09:54 ; Admin Dose 500 MG; Start 02/23/17 at 09:00 Calcium/Vitamin D (Oyster Shell/ Vit-D (500/200)) 1 tab DAILY PO Last administered on 02/27/17 09:53; Admin Dose 1 TAB; Start 02/23/17 at 09:00 Docusate Sodium (Colace) 100 mg BID PO Last administered on 02/27/17 20:58; Admin Dose 100 MG; Start 02/22/17 at 21:00 Ferrous Sulfate (Ferrous Sulfate (Ec)) 325 mg DAILY PO Last administered on 09:53; Admin Dose 325 MG; Start 02/23/17 at 09:00 Furosemide (Lasix) 20 mg DAILY PO Last administered on 02/27/17 09:54; Admin Dose 20 MG; Start 02/23/17 at 09:00 Multivitamins Therapeutic 1 tab 1 tab DAILY PO Last administered on 02/27/17 09:53; Admin Dose 1 TAB; Start 02/23/17 at 09:00 Fentanyl (Sublimaze) 100 ml @ 2.5 mls/hr TITRATE IV Last administered on 02/26 05:12; Admin Dose 10 MLS/HR; Start 02/22/17 at 10:00 Metoprolol Tartrate 5 mg 5 mg Q6H PRN IV ELEVATED HEART RATE Last administered on 02/27/17 21:40; Admin Dose 5 MG; Start 02/23/17 at 02:40 Midazolam HCl 50 ml @ 1 mls/hr TITRATE PRN IV SEDATION; Start 02/23/17 at 11: 30 Sodium Bicarbonate 100 meq/Dextrose/ Sodium Chloride 1,000 ml @ 100 mls/hr Q10H IV Last administered on 02/28/17 06:21; Admin Dose 100 MLS/HR; Start at 11:00 Cefepime HCl (Maxipime 1gm/50 ml (Pmx)) 50 ml @ 100 mls/hr Q24H IVPB Last administered on 02/27/17 20:57; Admin Dose 100 MLS/HR; Start 02/24/17 at 21: 00 Fluconazole (Diflucan) 100 mg DAILY PO Last administered on 02/27/17 09:54; Admin Dose 100 MG; Start 02/24/17 at 13:30 Assessment/Plan Chief Complaint/Hosp Course IMPRESSION AND PLAN: 1. Hypoxemic respiratory failure, possibly secondary to healthcare-associated pneumonia. 2. Improving metabolic acidosis and renal insufficiency 3. Delirium possible underlying dementia. 4. Improving transaminitis. Ultrasound liver shows no obstructive disease. The patient will require: 1. Continue IV fluids 2. Will attempt CPAP trial today. 3. Broad-spectrum antibiotics for community-acquired pneumonia. 4. Hold Coumadin. 5. Start tube feeding. 6. Deep venous thrombosis and gastrointestinal prophylaxis. Family conference today with son regarding goals of care. Likely compassionate extubation. Problems: NOEMY BERTRAND MD, [facility] Feb 28, 2017 09:20
[2017-02-28 09:28] LABS: INR 4.08; PT RATIO 3.1
[2017-02-28] MEDS: DOCUSATE SODIUM 100 MG CAP PO SCH ×2 (09:39→21:00)
[2017-02-28] MEDS: CALCIUM/VITAMIN D (500/200) TAB PO SCH (09:39)
[2017-02-28] MEDS: FLUCONAZOLE 100 MG TAB PO SCH (09:40)
[2017-02-28] MEDS: FUROSEMIDE 20 MG TAB PO SCH (09:40)
[2017-02-28] MEDS: ASCORBIC ACID 500 MG TAB PO SCH (09:41)
[2017-02-28] MEDS: FERROUS SULFATE (EC) 325 MG TAB PO SCH (09:41)
[2017-02-28] MEDS: MULTIVITAMINS THERAPEUTIC TAB PO SCH (09:41)
[2017-02-28] MEDS: AMIODARONE 200 MG TAB PO SCH (09:41)
[2017-02-28] MEDS: COLLAGENASE 30 GM TUBE TOP SCH (09:41)
--- NOTE | 2017-02-28 09:44 | PN ---
Date/Time of Note Date/Time of Note DATE: 02/28/17 TIME: 09:39 Assessment/Plan VTE Prophylaxis VTE Prophylaxis Intervention: SCD's Lines/Catheters IV Catheter Type (from Nrs): Peripheral IV Urinary Cath still in place: Yes Reason Cath still needed: urinary retention Assessment/Plan Chief Complaint/Hosp Course Assessment/Plan: 86 yo F with advanced dementia, AFib, hypothyroid admitted for acute hypoxic respiratory and sepsis, possibly from pneumonia. Also complicated by shock liver which is resolving 1. sepsis: Likely secondary to pneumonia -Continue abx as per ID 2. hypoxic respiratory failure: wean vent as tolerated 3. KAVYA: Still mildly present - monitor ins and outs for now BUN/creatinine levels 4. pressure ulcer: wound care on cs 5. proteinuria: urine p/c ~0.3 g proteinuria per day--> - outpatient follow up. consider repeat UA closer to discharge 6. transaminitis: shock liver. improving. viral hepatitis seros negative -Functional Mental Disability Teacher LFTs 7. AFib: cont home amio and warfarin (as feasible based on INR goal 2-3) 8. chronic systolic HF: resumed lasix/bb 9. hypothyroid: cont home Synthroid 10. FEN: start TFs 11. prophx: DVT, GI while on vent dispo/goals of care: Hospitalist spoke with son over the phone 02.25. dw son that while pt's condition has not significantly worsened over the past 3-4 days , it has also not significantly improved. They asked son if mom is unable to be weaned off vent, does he think she would want to be trach'ed for prolonged vent weaning. Son said he thinks his mom would not want that. Son states he is in [facility] through the weekend for work. Wants to discuss his mom's clinical status with family and close friends and requested that we touch base next on Tuesday for mutual updates -which we will attempt today. Also consider palliative consult. Critical care time spent on patient care today: 45 min Problems: Subjective 24 Hr Interval Summary Free Text/Dictation No acute events overnight, still intubated Exam/Review of Systems Vital Signs Vitals Vital Signs Date Time Temp Pulse Resp B/P Pulse Ox O2 Delivery O2 Flow Rate FiO2 02/28/17 09:00 121 28 153/52 100 Mechanical Ventilator 02/28/17 08:00 98.0 11/20/17 05:15 30 Intake and Output 02/27/17 02/27/17 02/28/17 15:00 23:00 07:00 Intake Total 1240 ml 1130 ml 1120 ml Output Total 197 ml 214 ml 215 ml Balance 1043 ml 916 ml 905 ml Exam Lying in bed, intubated, Nad Supple no mrg lungs clear abd soft no lower extremity edema bilaterally Results Result Diagram: 02/28/17 0826 02/28/17 0826 Results 24 hrs Laboratory Tests Test 02/28/17 08:26 White Blood Count 10.7 # Red Blood Count 2.61 #L Hemoglobin 8.0 #L Hematocrit 26.4 #L Mean Corpuscular Volume 101.1 H Mean Corpuscular Hemoglobin 30.7 Mean Corpuscular Hemoglobin Concent 30.3 L Red Cell Distribution Width 16.0 H Platelet Count 117 #L Mean Platelet Volume 11.7 H Neutrophils % 87.1 H Lymphocytes % 5.5 L Monocytes % 6.6 Eosinophils % 0.1 Basophils % 0.3 Nucleated Red Blood Cells % 0.0 Neutrophils # 9.3 H Lymphocytes # 0.6 L Monocytes # 0.7 Eosinophils # 0.0 Basophils # 0.0 Nucleated Red Blood Cells # 0.0 Prothrombin Time Pending Prothrombin Time Ratio 3.1 INR International Normalized Ratio 4.08 Sodium Level 143 Potassium Level 3.4 L Chloride Level 109 Carbon Dioxide Level 26 Anion Gap 11 Blood Urea Nitrogen 29 H Creatinine 1.11 H Glucose Level 157 Calcium Level 7.7 L Total Bilirubin 0.9 Direct Bilirubin 0.00 # Indirect Bilirubin 0.9 Aspartate Amino Transf (AST/SGOT) 79 H Alanine Aminotransferase (ALT/SGPT) 297 H Alkaline Phosphatase 88 Total Protein 5.5 L Albumin 2.4 L Globulin 3.10 Albumin/Globulin Ratio 0.77 Medications Medications Current Medications Ondansetron HCl (Zofran Inj) 4 mg Q6H PRN IV NAUSEA AND/OR VOMITING; Start 03/27 at 21:30 Acetaminophen (Tylenol Liquid) 650 mg Q6H PRN PO PAIN LEVEL 1-3 OR FEVER; Start 02/20/17 at 21:30 Morphine Sulfate (morphine) 2 mg Q4H PRN IV PAIN LEVEL 7-10 Last administered on 02/27/17t 21:34; Admin Dose 2 MG; Start 02/20/17 at 21:30 Magnesium Hydroxide (Milk Of Mag) 30 ml DAILY PRN PO CONSTIPATION; Start 02/20 at 21:30 Atorvastatin Calcium (Lipitor) 40 mg QHS PO Last administered on 02/27/17 20: 57; Admin Dose 40 MG; Start 02/21/17 at 21:00 Famotidine (Pepcid) 20 mg HS GTB Last administered on 02/27/17 20:57; Admin Dose 20 MG; Start 02/21/17 at 21:00 Amiodarone HCl (Cordarone) 100 mg DAILY PO Last administered on 02/27/17 09: 54; Admin Dose 100 MG; Start 02/21/17 at 09:30 Warfarin Sodium (Coumadin) 1 mg DAILY PO ; Start 02/21/17 at 09:30; Status Future Hold Miscellaneous Information (Pending Santyl Order For Wound Care) This patient sadler... PRN PRN XX WOUND CARE; Start 02/21/17 at 10:00 Collagenase (Santyl) 1 applic DAILY TOP Last administered on 02/27/17 09:55; Admin Dose 1 APPLIC; Start 02/22/17 at 10:00 Ascorbic Acid (Vitamin C) 500 mg DAILY PO Last administered on 02/27/17 09:54 ; Admin Dose 500 MG; Start 02/23/17 at 09:00 Calcium/Vitamin D (Oyster Shell/ Vit-D (500/200)) 1 tab DAILY PO Last administered on 02/27/17 09:53; Admin Dose 1 TAB; Start 02/23/17 at 09:00 Docusate Sodium (Colace) 100 mg BID PO Last administered on 02/27/17 20:58; Admin Dose 100 MG; Start 02/22/17 at 21:00 Ferrous Sulfate (Ferrous Sulfate (Ec)) 325 mg DAILY PO Last administered on 09:53; Admin Dose 325 MG; Start 02/23/17 at 09:00 Furosemide (Lasix) 20 mg DAILY PO Last administered on 02/27/17 09:54; Admin Dose 20 MG; Start 02/23/17 at 09:00 Multivitamins Therapeutic 1 tab 1 tab DAILY PO Last administered on 02/27/17 09:53; Admin Dose 1 TAB; Start 02/23/17 at 09:00 Fentanyl (Sublimaze) 100 ml @ 2.5 mls/hr TITRATE IV Last administered on 02/26 05:12; Admin Dose 10 MLS/HR; Start 02/22/17 at 10:00 Metoprolol Tartrate 5 mg 5 mg Q6H PRN IV ELEVATED HEART RATE Last administered on 02/27/17 21:40; Admin Dose 5 MG; Start 02/23/17 at 02:40 Midazolam HCl 50 ml @ 1 mls/hr TITRATE PRN IV SEDATION; Start 02/23/17 at 11: 30 Sodium Bicarbonate 100 meq/Dextrose/ Sodium Chloride 1,000 ml @ 100 mls/hr Q10H IV Last administered on 02/28/17 06:21; Admin Dose 100 MLS/HR; Start at 11:00 Cefepime HCl (Maxipime 1gm/50 ml (Pmx)) 50 ml @ 100 mls/hr Q24H IVPB Last administered on 02/27/17 20:57; Admin Dose 100 MLS/HR; Start 02/24/17 at 21: 00 Fluconazole (Diflucan) 100 mg DAILY PO Last administered on 02/27/17 09:54; Admin Dose 100 MG; Start 02/24/17 at 13:30 MELANIA ALEJANDRO 20, 2017 09:44
[2017-02-28 09:50] LABS: ABNORMAL IP MESSAGE 1; BASOPHIL # 0.1 10^3/ul (0.0-0.1); BASOPHILS % 0.4 % (0.0-2.0); EOSINOPHILS % 0.1 % (0.0-7.0); HEMATOCRIT 34.5 % (37.0-47.0); HEMOGLOBIN 11.5 g/dl (12.0-16.0); LYMPHOCYTES # 0.7 10^3/ul (0.8-2.9); LYMPHOCYTES % 4.7 % (15.0-51.0); MEAN CORPUSCULAR HGB CONC 33.3 g/dl (32.0-37.0); MEAN PLATELET VOLUME 12.5 fl (7.4-10.4); MONOCYTE # 0.7 10^3/ul (0.3-0.9); MONOCYTES % 5.3 % (0.0-11.0); NEUTROPHIL # 12.4 10^3/ul (1.6-7.5); PLATELET COUNT 197 10^3/UL (140-415); RED BLOOD COUNT 3.71 10^6/ul (4.20-5.40); RED CELL DISTRIBUTION WIDTH 15.7 % (11.5-14.5); WHITE BLOOD COUNT 13.9 10^3/ul (4.8-10.8)
[2017-02-28 09:51] LABS: PROTIME 40.3 Sec (12.2-14.2)
[2017-02-28 10:08] LABS: POSITIVE DIFF @See below
--- NOTE | 2017-02-28 10:16 | CONS ---
Date/Time of Note Date/Time of Note DATE: 02/28/17 TIME: 10:10 Assessment/Plan Assessment/Plan Chief Complaint/Hosp Course Asked to see patient by Dr. Escobar 86-year-old female presenting with respiratory failure now intubated, sepsis syndrome underlying history of dementia presents from a halfway facility. Dr. Muñiz has spoken with patient's son patient is currently a DNR. Stilling intensive care unit receiving aggressive intervention. Social work service has been asked to schedule a meeting with family members. Patient is moribund and cannot make decisions on her own behalf. 86-year-old female with advanced dementia presenting with acute respiratory failure and sepsis 6 yo F with advanced dementia, AFib, hypothyroid admitted for acute hypoxic respiratory and sepsis, source unclear. Also complicated by shock liver. PLAN #sepsis: cont meropenem pending further culture data. f/u blood cultures ordered. GPR in blood consistent with contaminant -respiratory culture in process-->scot likely represents colonization and does not warrant treatment in immunocompetent patient #hypoxic respiratory failure: wean vent as tolerated, possibly today? #non anion gap metabolic acidosis: check urine lytes to eval for RTA #KAVYA:RESOLVED #pressure ulcer: wound care cs #proteinuria: urine p/c ~0.3 g proteinuria per day-->outpatient follow up. consider repeat UA closer to discharge #transaminitis: shock liver. improving. viral hepatitis seros negative #AFib: cont home amio and warfarin (as feasible based on INR goal 2-3) #chronic systolic HF: resume lasix/bb as tolerated #hypothyroid: cont home Synthroid Problems: Consultation Date/Type/Reason Admit Date/Time Feb 20, 2017 at 21:09 Initial Consult Date Type of Consultation: Palliative care 24 HR Interval Summary Free Text/Dictation Contacted patient's son who is a decision maker for ongoing level of care. First while he is decided to withdraw care tomorrow March 01 made it very clear he wants to be at his mother's bedside. We covered options ongoing level of care physical findings I believe patient is in distress she appears to be in distress and is frowning continually. Discussed treatment options insofar his current level of care with trach trach and PEG versus just comfort measures he has made it very clear that his mother would never want to live on artificial life support. I supported his decision. Therefore we covered in a discussion psychosocial issues once again he is with patient's ongoing level of care. We discussed patient's background and social history once again she does not want to continue with this level of care. He has a clear understanding of her prognosis discusses hopes his fears once again patient acceptable quality of life, his fears concerns and worry. There are no cultural communication issues. Patient has no prognosis for significant recovery and once and will probably have to she has a compassionate extubation. Exam/Review of Systems Vital Signs Vitals Vital Signs Date Time Temp Pulse Resp B/P Pulse Ox O2 Delivery O2 Flow Rate FiO2 02/28/17 09:00 121 28 153/52 100 Mechanical Ventilator 02/28/17 08:00 98.0 02/28/17 05:15 30 Intake and Output 02/27/17 02/27/17 02/28/17 15:00 23:00 07:00 Intake Total 1240 ml 1130 ml 1120 ml Output Total 197 ml 214 ml 215 ml Balance 1043 ml 916 ml 905 ml Results Result Diagram: 02/28/17 0826 02/28/17 0826 Results 24 hrs Laboratory Tests Test 02/28/17 08:26 White Blood Count 13.9 #H Red Blood Count 3.71 #L Hemoglobin 11.5 #L Hematocrit 34.5 #L Mean Corpuscular Volume 93.0 Mean Corpuscular Hemoglobin 31.0 Mean Corpuscular Hemoglobin Concent 33.3 Red Cell Distribution Width 15.7 H Platelet Count 197 # Mean Platelet Volume 12.5 H Neutrophils % 89.0 H Lymphocytes % 4.7 L Monocytes % 5.3 Eosinophils % 0.1 Basophils % 0.4 Nucleated Red Blood Cells % 0.0 Neutrophils # 12.4 H Lymphocytes # 0.7 L Monocytes # 0.7 Eosinophils # 0.0 Basophils # 0.1 Nucleated Red Blood Cells # 0.0 Prothrombin Time 40.3 #H Prothrombin Time Ratio 3.1 INR International Normalized Ratio 4.08 Sodium Level 143 Potassium Level 3.4 L Chloride Level 109 Carbon Dioxide Level 26 Anion Gap 11 Blood Urea Nitrogen 29 H Creatinine 1.11 H Glucose Level 157 Calcium Level 7.7 L Total Bilirubin 0.9 Direct Bilirubin 0.00 # Indirect Bilirubin 0.9 Aspartate Amino Transf (AST/SGOT) 79 H Alanine Aminotransferase (ALT/SGPT) 297 H Alkaline Phosphatase 88 Total Protein 5.5 L Albumin 2.4 L Globulin 3.10 Albumin/Globulin Ratio 0.77 Medications Medications Current Medications Ondansetron HCl (Zofran Inj) 4 mg Q6H PRN IV NAUSEA AND/OR VOMITING; Start 03/27 at 21:30 Acetaminophen (Tylenol Liquid) 650 mg Q6H PRN PO PAIN LEVEL 1-3 OR FEVER; Start 02/20/17 at 21:30 Morphine Sulfate (morphine) 2 mg Q4H PRN IV PAIN LEVEL 7-10 Last administered on 02/27/17 21:34; Admin Dose 2 MG; Start 02/20/17 at 21:30 Magnesium Hydroxide (Milk Of Mag) 30 ml DAILY PRN PO CONSTIPATION; Start 02/20 at 21:30 Atorvastatin Calcium (Lipitor) 40 mg QHS PO Last administered on 02/27/17 20: 57; Admin Dose 40 MG; Start 02/21/17 at 21:00 Famotidine (Pepcid) 20 mg HS GTB Last administered on 02/27/17 20:57; Admin Dose 20 MG; Start 02/21/17 at 21:00 Amiodarone HCl (Cordarone) 100 mg DAILY PO Last administered on 02/28/17 09: 41; Admin Dose 100 MG; Start 02/21/17 at 09:30 Warfarin Sodium (Coumadin) 1 mg DAILY PO ; Start 02/21/17 at 09:30; Status Future Hold Miscellaneous Information (Pending Santyl Order For Wound Care) This patient sadler... PRN PRN XX WOUND CARE; Start 02/21/17 at 10:00 Collagenase (Santyl) 1 applic DAILY TOP Last administered on 02/28/17 09:41; Admin Dose 1 APPLIC; Start 02/22/17 at 10:00 Ascorbic Acid (Vitamin C) 500 mg DAILY PO Last administered on 02/28/17 09:41 ; Admin Dose 500 MG; Start 02/23/17 at 09:00 Calcium/Vitamin D (Oyster Shell/ Vit-D (500/200)) 1 tab DAILY PO Last administered on 02/28/17 09:39; Admin Dose 1 TAB; Start 02/23/17 at 09:00 Docusate Sodium (Colace) 100 mg BID PO Last administered on 02/28/17 09:39; Admin Dose 100 MG; Start 02/22/17 at 21:00 Ferrous Sulfate (Ferrous Sulfate (Ec)) 325 mg DAILY PO Last administered on 09:41; Admin Dose 325 MG; Start 02/23/17 at 09:00 Furosemide (Lasix) 20 mg DAILY PO Last administered on 02/28/17 09:40; Admin Dose 20 MG; Start 02/23/17 at 09:00 Multivitamins Therapeutic 1 tab 1 tab DAILY PO Last administered on 02/28/17 09:41; Admin Dose 1 TAB; Start 02/23/17 at 09:00 Fentanyl (Sublimaze) 100 ml @ 2.5 mls/hr TITRATE IV Last administered on 02/26 05:12; Admin Dose 10 MLS/HR; Start 02/22/17 at 10:00 Metoprolol Tartrate 5 mg 5 mg Q6H PRN IV ELEVATED HEART RATE Last administered on 02/27/17 21:40; Admin Dose 5 MG; Start 02/23/17 at 02:40 Midazolam HCl 50 ml @ 1 mls/hr TITRATE PRN IV SEDATION; Start 02/23/17 at 11: 30 Sodium Bicarbonate 100 meq/Dextrose/ Sodium Chloride 1,000 ml @ 100 mls/hr Q10H IV Last administered on 02/28/17 06:21; Admin Dose 100 MLS/HR; Start at 11:00 Cefepime HCl (Maxipime 1gm/50 ml (Pmx)) 50 ml @ 100 mls/hr Q24H IVPB Last administered on 02/27/17 20:57; Admin Dose 100 MLS/HR; Start 02/24/17 at 21: 00 Fluconazole (Diflucan) 100 mg DAILY PO Last administered on 02/28/17 09:40; Admin Dose 100 MG; Start 02/24/17 at 13:30 DUANE JENKINS Feb 28, 2017 10:16
[2017-02-28 10:43] LABS: AADO2 Arterial 82.9 mmHg (7.0-24.0); Allen Test ACCEPTAB; Arterial Base Excess 1.8 mmol/L (-3.0-3); Arterial COHb 0.2 % (0.0-3.0); Arterial Fraction of Oxyhgb 97.2 % (93.0-99.0); Arterial HCO3 23.8 mmol/L (22.0-26.0); Arterial MetHb 0.2 % (0.0-1.5); Arterial Total Hemglobin 13.6 g/dl (12.0-18.0); Blood Gas PS 10; MODE VENT - CPAP
[2017-02-28] MEDS ORDERED: POTASSIUM CHLORIDE 20 MEQ POWDER FOR ORAL SOLN NGT ONE (11:00)
[2017-02-28] MEDS: morphine 2 MG INJ IV PRN ×2 (11:04→21:01)
--- NOTE | 2017-02-28 14:48 | PN ---
DATE: 02/28/2017 SUBJECTIVE: No acute changes. The patient remains intubated, looks comfortable. HEENT:. VITAL SIGNS: Afebrile. Temperature 98, pulse 109, respirations 19, blood pressure 154/58, saturati on 100 on 30 FIO2. WBC 13.9, H and H 11.5 and 34.5, platelets 197, neutrophils 89, BUN 29, creatinine 1.1. MICROBIOLOGY: Blood culture on admission grew Corynebacterium species and coagulase-negative staph species 1 out of 2 sets. Repeat cultures negative. Endotracheal aspirate grew Kristal albicans. ANTIMICROBIALS: The patient is on: 1. Cefepime. 2. Fluconazole. INDWELLINGS: Endotracheal tube, NG tube, Najera, left subclavian triple-lumen catheter. PHYSICAL EXAMINATION: GENERAL: This is a chronically ill-appearing, elderly woman who is in no distress. HEENT: Head atraumatic, normocephalic. Sclerae anicteric. Buccal mucosa dry. NECK: Supple. CHEST: Rise symmetrical. Breath sounds diminished to bases. HEART: S1, S2. ABDOMEN: Soft, bowel tones present. EXTREMITIES: Without cyanosis. ASSESSMENT: 1. Status post septic shock. 2. Pneumonia with acute respiratory failure. 3. Encephalopathy. 4. Atrial fibrillation. 5. Congestive heart failure. PLAN: The patient remains stable. We will continue her on current antibiotics, pending family conf erence regarding ongoing plans of care. Patient is DNR status. Dictated By: SHALOM ESTRADA PRODUCE CLERK for [employer]O Conf#: [id number] DID#: [id number]
[2017-02-28] MEDS: ATORVASTATIN 40 MG TAB PO SCH (21:00)
[2017-02-28] MEDS: CEFEPIME 1GM/50 ML (PMX) 50 ML IVPB SCH (21:00)
[2017-02-28] MEDS: METOPROLOL 5 MG INJ IV PRN (21:00)
[2017-02-28] MEDS: FAMOTIDINE 20 MG TAB GTB SCH (21:00)
[2017-03-01] VITALS (36 sets, daily range): BP systolic 95–167; BP diastolic 42–77; PULSE 86–154; RESP 16–29
[2017-03-01 06:01] LABS: ABNORMAL IP MESSAGE 1; BASOPHIL # 0.1 10^3/ul (0.0-0.1); BASOPHILS % 0.4 % (0.0-2.0); HEMATOCRIT 33.6 % (37.0-47.0); LYMPHOCYTES # 0.6 10^3/ul (0.8-2.9); LYMPHOCYTES % 4.2 % (15.0-51.0); MEAN CORPUSCULAR HEMOGLOBIN 30.4 pg (29.0-33.0); MEAN CORPUSCULAR HGB CONC 32.7 g/dl (32.0-37.0); MEAN CORPUSCULAR VOLUME 92.8 fl (82.0-101.0); MEAN PLATELET VOLUME 13.1 fl (7.4-10.4); MONOCYTE # 0.8 10^3/ul (0.3-0.9); MONOCYTES % 5.8 % (0.0-11.0); NEUTROPHIL # 11.6 10^3/ul (1.6-7.5); NEUTROPHILS % 89.1 % (39.0-77.0); PLATELET COUNT 185 10^3/UL (140-415); RED BLOOD COUNT 3.62 10^6/ul (4.20-5.40); RED CELL DISTRIBUTION WIDTH 15.7 % (11.5-14.5)
[2017-03-01 06:47] LABS: INR 3.28; PROTIME 33.9 Sec (12.2-14.2); PT RATIO 2.6
[2017-03-01 06:51] LABS: POSITIVE DIFF @See below
[2017-03-01] MEDS: LEVOTHYROXINE 150 MCG TAB PO SCH (07:05)
[2017-03-01 07:11] LABS: CALCIUM 7.5 mg/dl (8.4-10.2); CREATININE 1.2 mg/dl (0.44-1.00); POTASSIUM 3.6 mmol/L (3.5-5.1)
--- NOTE | 2017-03-01 08:45 | RADRPT ---
PROCEDURE: XR Chest. CLINICAL INDICATION: Respiratory failure TECHNIQUE: Single frontal chest x-ray. COMPARISON: 02/25/2017 FINDINGS: ET tube, NG tube remain in satisfactory position. There is cardiomegaly with mild pulmonary vascula r congestion. Left basilar airspace disease has increased. There are small bilateral pleural effusio ns with mild right basilar atelectasis. There is aortic atherosclerosis. Cardiac valve replacements. Sternotomy wires are intact. The osseous structures are unremarkable. IMPRESSION: 1. Slightly increased left basilar airspace disease. 2. Slightly increased right pleural effusion. 3. Cardiomegaly with mild pulmonary vascular congestion. 4. Tubes and lines remain in satisfactory position. RPTAT: BB .Dell Melo MD, MD Date Time Electronically viewed and signed by .Dell Melo MD, on 03/01/2017 08:45 .O/
[2017-03-01] MEDS: DOCUSATE SODIUM 100 MG CAP PO SCH (09:26)
[2017-03-01] MEDS: MULTIVITAMINS THERAPEUTIC TAB PO SCH (09:26)
[2017-03-01] MEDS: FERROUS SULFATE (EC) 325 MG TAB PO SCH (09:26)
[2017-03-01] MEDS: CALCIUM/VITAMIN D (500/200) TAB PO SCH (09:26)
[2017-03-01] MEDS: FUROSEMIDE 20 MG TAB PO SCH (09:26)
[2017-03-01] MEDS: FLUCONAZOLE 100 MG TAB PO SCH (09:26)
[2017-03-01] MEDS: AMIODARONE 200 MG TAB PO SCH (09:27)
[2017-03-01] MEDS: COLLAGENASE 30 GM TUBE TOP SCH (09:27)
[2017-03-01] MEDS: ASCORBIC ACID 500 MG TAB PO SCH (09:27)
[2017-03-01] MEDS: SODIUM BICARBONATE (IV ADD) 100 MEQ in DEXTROSE 5%-0.45% NACL 900 ML IV SCH (10:25)
--- NOTE | 2017-03-01 10:27 | PN ---
Date/Time of Note Date/Time of Note DATE: 03/01/17 TIME: 10:13 Assessment/Plan VTE Prophylaxis VTE Prophylaxis Intervention: SCD's Lines/Catheters IV Catheter Type (from Nrsg): Peripheral IV Urinary Cath still in place: Yes Reason Cath still needed: urinary retention Assessment/Plan Chief Complaint/Hosp Course Assessment/Plan: 86 yo F with advanced dementia, AFib, hypothyroid admitted for acute hypoxic respiratory and sepsis, possibly from pneumonia. Also complicated by shock liver which is resolving 1. sepsis: Likely secondary to pneumonia -Continue abx as per ID 2. hypoxic respiratory failure: Again, had CPAP trial yesterday. - Wean vent as tolerated 3. KAVYA: Still mildly present - monitor ins and outs for now BUN/creatinine levels 4. pressure ulcer: wound care on cs 5. transaminitis: shock liver. improving. viral hepatitis seros negative - monitor LFTs 7. AFib: off Coumadin now sec to elevated INR - monitor HR 8. chronic systolic HF: resumed lasix/bb 9. hypothyroid: cont home Synthroid 10. FEN: TFs 11. prophx: DVT, GI while on vent dispo/goals of care: Hospitalist spoke with son over the phone 02.25. dw son that while pt's condition has not significantly worsened over the past 4 days, it has also not significantly improved. They asked son if mom is unable to be weaned off vent, does he think she would want to be trached for prolonged vent weaning. Son said he thinks his mom would not want that. He is presently meeting with palliative care team now. Critical care time spent on patient care today: 45 min Problems: Subjective 24 Hr Interval Summary Free Text/Dictation Patient had CPAP trial yesterday. Exam/Review of Systems Vital Signs Vitals Vital Signs Date Time Temp Pulse Resp B/P Pulse Ox O2 Delivery O2 Flow Rate FiO2 03/01/17 07:00 97 20 150/63 100 Mechanical Ventilator 03/01/17 05:30 30 03/01/17 04:00 98.0 Intake and Output 02/28/17 02/28/17 03/01/17 14:59 22:59 06:59 Intake Total 1170 ml 1200 ml 1400 ml Output Total 83 ml 175 ml 140 ml Balance 1087 ml 1025 ml 1260 ml Exam Lying in bed, intubated, Nad Supple no mrg lungs clear abd soft no lower extremity edema bilaterally Results Result Diagram: 03/01/17 0458 03/01/17 0458 Results 24 hrs Laboratory Tests Test 02/28/17 10:30 03/01/17 04:58 03/01/17 07:03 Blood Gas Specimen Source Blood arterial Arterial Blood Date Drawn 02/28/2017 10:30:40 AM Arterial Blood pH (Temp corrected) 7.518 H Arterial Blood pCO2 (Temp correct) 30.0 L Arterial Blood pO2 (Temp corrected) 95.8 H Arterial Blood HCO3 23.8 Arterial Blood Base Excess 1.8 Arterial Blood Oxygen Saturation 97.6 Simon Test ACCEPTAB Arterial Blood Gas Puncture Site Right Radial Arterial Blood Carboxyhemoglobin 0.2 Arterial Blood Methemoglobin 0.2 Blood Gas A-a O2 Differential 82.9 H Oxyhemoglobin Percent 97.2 Total Hemoglobin 13.6 Blood Gas Temperature 37.0 Blood Gas Actual Respiration Rate 29 Blood Gas Modality VENT - CPAP FiO2 30.0 Blood Gas Low PEEP Setting 5.0 Blood Gas Pressure Support 10 Blood Gas Notified Whom JLD Blood Gas Notified Time 02/28/2017 10:43:16 AM White Blood Count 13.0 H Red Blood Count 3.62 L Hemoglobin 11.0 L Hematocrit 33.6 L Mean Corpuscular Volume 92.8 Mean Corpuscular Hemoglobin 30.4 Mean Corpuscular Hemoglobin Concent 32.7 Red Cell Distribution Width 15.7 H Platelet Count 185 Mean Platelet Volume 13.1 H Neutrophils % 89.1 H Lymphocytes % 4.2 L Monocytes % 5.8 Eosinophils % 0.0 Basophils % 0.4 Nucleated Red Blood Cells % 0.0 Neutrophils # 11.6 H Lymphocytes # 0.6 L Monocytes # 0.8 Eosinophils # 0.0 Basophils # 0.1 Nucleated Red Blood Cells # 0.0 Prothrombin Time 33.9 H Prothrombin Time Ratio 2.6 INR International Normalized Ratio 3.28 Sodium Level 141 Potassium Level 3.6 Chloride Level 107 Carbon Dioxide Level 27 Anion Gap 11 Blood Urea Nitrogen 32 H Creatinine 1.20 H Glucose Level 141 Calcium Level 7.5 L Lab Scanned Report REFERENCE LAB Medications Medications Current Medications Ondansetron HCl (Zofran Inj) 4 mg Q6H PRN IV NAUSEA AND/OR VOMITING; Start 03/27 at 21:30 Acetaminophen (Tylenol Liquid) 650 mg Q6H PRN PO PAIN LEVEL 1-3 OR FEVER; Start 02/20/17 at 21:30 Morphine Sulfate (morphine) 2 mg Q4H PRN IV PAIN LEVEL 7-10 Last administered on 02/28/17 21:01; Admin Dose 2 MG; Start 02/20/17 at 21:30 Magnesium Hydroxide (Milk Of Mag) 30 ml DAILY PRN PO CONSTIPATION; Start 02/20 at 21:30 Atorvastatin Calcium (Lipitor) 40 mg QHS PO Last administered on 02/28/17 21: 00; Admin Dose 40 MG; Start 02/21/17 at 21:00 Famotidine (Pepcid) 20 mg HS GTB Last administered on 02/28/17 21:00; Admin Dose 20 MG; Start 02/21/17 at 21:00 Amiodarone HCl (Cordarone) 100 mg DAILY PO Last administered on 03/01/17 09: 27; Admin Dose 100 MG; Start 02/21/17 at 09:30 Warfarin Sodium (Coumadin) 1 mg DAILY PO ; Start 02/21/17 at 09:30; Status Future Hold Miscellaneous Information (Pending Santyl Order For Wound Care) This patient sadler... PRN PRN XX WOUND CARE; Start 02/21/17 at 10:00 Collagenase (Santyl) 1 applic DAILY TOP Last administered on 03/01/17 09:27; Admin Dose 1 APPLIC; Start 02/22/17 at 10:00 Ascorbic Acid (Vitamin C) 500 mg DAILY PO Last administered on 03/01/17 09:27 ; Admin Dose 500 MG; Start 02/23/17 at 09:00 Calcium/Vitamin D (Oyster Shell/ Vit-D (500/200)) 1 tab DAILY PO Last administered on 03/01/17 09:26; Admin Dose 1 TAB; Start 02/23/17 at 09:00 Docusate Sodium (Colace) 100 mg BID PO Last administered on 03/01/17 09:26; Admin Dose 100 MG; Start 02/22/17 at 21:00 Ferrous Sulfate (Ferrous Sulfate (Ec)) 325 mg DAILY PO Last administered on 09:26; Admin Dose 325 MG; Start 02/23/17 at 09:00 Furosemide (Lasix) 20 mg DAILY PO Last administered on 03/01/17 09:26; Admin Dose 20 MG; Start 02/23/17 at 09:00 Multivitamins Therapeutic 1 tab 1 tab DAILY PO Last administered on 03/01/17 09:26; Admin Dose 1 TAB; Start 02/23/17 at 09:00 Fentanyl (Sublimaze) 100 ml @ 2.5 mls/hr TITRATE IV Last administered on 02/26 05:12; Admin Dose 10 MLS/HR; Start 02/22/17 at 10:00 Metoprolol Tartrate 5 mg 5 mg Q6H PRN IV ELEVATED HEART RATE Last administered on 02/28/17 21:00; Admin Dose 5 MG; Start 02/23/17 at 02:40 Midazolam HCl 50 ml @ 1 mls/hr TITRATE PRN IV SEDATION; Start 02/23/17 at 11: 30 Sodium Bicarbonate 100 meq/Dextrose/ Sodium Chloride 1,000 ml @ 100 mls/hr Q10H IV Last administered on 02/28/17 21:02; Admin Dose 100 MLS/HR; Start at 11:00 Cefepime HCl (Maxipime 1gm/50 ml (Pmx)) 50 ml @ 100 mls/hr Q24H IVPB Last administered on 02/28/17 21:00; Admin Dose 100 MLS/HR; Start 02/24/17 at 21: 00 Fluconazole (Diflucan) 100 mg DAILY PO Last administered on 03/01/17 09:26; Admin Dose 100 MG; Start 02/24/17 at 13:30 MELANIA ALEJANDRO 21, 2017 10:23
[2017-03-01] MEDS: morphine 2 MG INJ IV PRN (11:56)
--- NOTE | 2017-03-01 12:52 | CONS ---
Date/Time of Note Date/Time of Note DATE: 03/01/17 TIME: 12:49 Assessment/Plan Assessment/Plan Additional Assessment/Plan Chest x-ray was reviewed which is showing patchy scattered infiltrates. Ventilator setting; AC of 16, tidal volume 450, PEEP of 5, 30% FiO2. Assessment and recommendations; 1. Patient admitted with bilateral pneumonia with significant radiological improvement. 2. Advanced dementia. 3. Chronic atrial fibrillation. 4. Mild renal insufficiency. 5. Failure to be weaned off from invasive mechanical ventilation despite a number of trials. Continue current supportive care. Patient's family will likely opt for terminal extubation. Prognosis is poor. Consultation Date/Type/Reason Admit Date/Time Feb 20, 2017 at 21:09 Type of Consultation: Pulmonary/critical care 24 HR Interval Summary Free Text/Dictation Patient condition remains tenuous at best. Patient has been unable to be extubated due to failure to be weaned on CPAP trial. General exam; elderly woman, orally intubated, awake, currently in no distress. Exam/Review of Systems Vital Signs Vitals Vital Signs Date Time Temp Pulse Resp B/P Pulse Ox O2 Delivery O2 Flow Rate FiO2 03/01/17 11:15 117 18 100 30 03/01/17 07:00 150/63 Mechanical Ventilator 03/01/17 04:00 98.0 Intake and Output 02/28/17 02/28/17 03/01/17 14:59 22:59 06:59 Intake Total 1170 ml 1200 ml 1400 ml Output Total 83 ml 175 ml 140 ml Balance 1087 ml 1025 ml 1260 ml Exam HEENT exam; supple neck, no JVD. No lymphadenopathy. Midline trachea. No thyromegaly. Patient has a multiple carious teeth. Chest exam; diminished but clear breath sounds. S1-S2 audible, irregular rhythm. No murmurs. Abdomen exam; soft, scaphoid. No organomegaly. Bowel sounds audible. Extremity exam; 2+ edema. JIG MAKER exam; patient is awake but does not follow any commands. Results Result Diagram: 03/01/17 0458 03/01/17 0458 Results 24 hrs Laboratory Tests Test 03/01/17 04:58 03/01/17 07:03 White Blood Count 13.0 H Red Blood Count 3.62 L Hemoglobin 11.0 L Hematocrit 33.6 L Mean Corpuscular Volume 92.8 Mean Corpuscular Hemoglobin 30.4 Mean Corpuscular Hemoglobin Concent 32.7 Red Cell Distribution Width 15.7 H Platelet Count 185 Mean Platelet Volume 13.1 H Neutrophils % 89.1 H Lymphocytes % 4.2 L Monocytes % 5.8 Eosinophils % 0.0 Basophils % 0.4 Nucleated Red Blood Cells % 0.0 Neutrophils # 11.6 H Lymphocytes # 0.6 L Monocytes # 0.8 Eosinophils # 0.0 Basophils # 0.1 Nucleated Red Blood Cells # 0.0 Prothrombin Time 33.9 H Prothrombin Time Ratio 2.6 INR International Normalized Ratio 3.28 Sodium Level 141 Potassium Level 3.6 Chloride Level 107 Carbon Dioxide Level 27 Anion Gap 11 Blood Urea Nitrogen 32 H Creatinine 1.20 H Glucose Level 141 Calcium Level 7.5 L Lab Scanned Report REFERENCE LAB Medications Medications Current Medications Ondansetron HCl (Zofran Inj) 4 mg Q6H PRN IV NAUSEA AND/OR VOMITING; Start 03/27 at 21:30 Acetaminophen (Tylenol Liquid) 650 mg Q6H PRN PO PAIN LEVEL 1-3 OR FEVER; Start 02/20/17 at 21:30 Morphine Sulfate (morphine) 2 mg Q4H PRN IV PAIN LEVEL 7-10 Last administered on 03/01/17 11:56; Admin Dose 2 MG; Start 02/20/17 at 21:30 Magnesium Hydroxide (Milk Of Mag) 30 ml DAILY PRN PO CONSTIPATION; Start 02/20 at 21:30 Atorvastatin Calcium (Lipitor) 40 mg QHS PO Last administered on 02/28/17 21: 00; Admin Dose 40 MG; Start 02/21/17 at 21:00 Famotidine (Pepcid) 20 mg HS GTB Last administered on 02/28/17 21:00; Admin Dose 20 MG; Start 02/21/17 at 21:00 Amiodarone HCl (Cordarone) 100 mg DAILY PO Last administered on 03/01/17 09: 27; Admin Dose 100 MG; Start 02/21/17 at 09:30 Warfarin Sodium (Coumadin) 1 mg DAILY PO ; Start 02/21/17 at 09:30; Status Future Hold Miscellaneous Information (Pending Santyl Order For Wound Care) This patient sadler... PRN PRN XX WOUND CARE; Start 02/21/17 at 10:00 Collagenase (Santyl) 1 applic DAILY TOP Last administered on 03/01/17 09:27; Admin Dose 1 APPLIC; Start 02/22/17 at 10:00 Ascorbic Acid (Vitamin C) 500 mg DAILY PO Last administered on 03/01/17 09:27 ; Admin Dose 500 MG; Start 02/23/17 at 09:00 Calcium/Vitamin D (Oyster Shell/ Vit-D (500/200)) 1 tab DAILY PO Last administered on 03/01/17 09:26; Admin Dose 1 TAB; Start 02/23/17 at 09:00 Docusate Sodium (Colace) 100 mg BID PO Last administered on 03/01/17 09:26; Admin Dose 100 MG; Start 02/22/17 at 21:00 Ferrous Sulfate (Ferrous Sulfate (Ec)) 325 mg DAILY PO Last administered on 09:; Admin Dose 325 MG; Start 02/23/17 at 09:00 Furosemide (Lasix) 20 mg DAILY PO Last administered on 03/01/17 09:26; Admin Dose 20 MG; Start 02/23/17 at 09:00 Multivitamins Therapeutic 1 tab 1 tab DAILY PO Last administered on 03/01/17 09:; Admin Dose 1 TAB; Start 02/23/17 at 09:00 Fentanyl (Sublimaze) 100 ml @ 2.5 mls/hr TITRATE IV Last administered on 02/26 05:12; Admin Dose 10 MLS/HR; Start 02/22/17 at 10:00 Metoprolol Tartrate 5 mg 5 mg Q6H PRN IV ELEVATED HEART RATE Last administered on 02/28/17 21:00; Admin Dose 5 MG; Start 02/23/17 at 02:40 Midazolam HCl 50 ml @ 1 mls/hr TITRATE PRN IV SEDATION; Start 02/23/17 at 11: 30 Sodium Bicarbonate 100 meq/Dextrose/ Sodium Chloride 1,000 ml @ 100 mls/hr Q10H IV Last administered on 03/01/17 10:25; Admin Dose 100 MLS/HR; Start at 11:00 Cefepime HCl (Maxipime 1gm/50 ml (Pmx)) 50 ml @ 100 mls/hr Q24H IVPB Last administered on 02/28/17 21:00; Admin Dose 100 MLS/HR; Start 02/24/17 at 21: 00 Fluconazole (Diflucan) 100 mg DAILY PO Last administered on 03/01/17t 09:26; Admin Dose 100 MG; Start 02/24/17 at 13:30 THERESA REYES Mar 01, 2017 12:51
--- NOTE | 2017-03-01 14:12 | CONS ---
Date/Time of Note Date/Time of Note DATE: 03/01/17 TIME: 14:10 Consult Date/Type/Reason Admit Date/Time Feb 20, 2017 at 21:09 Type of Consultation: ID Objective Vital Signs Date Time Temp Pulse Resp B/P Pulse Ox O2 Delivery O2 Flow Rate FiO2 03/01/17 12:00 123 03/01/17 11:15 18 100 30 03/01/17 07:00 150/63 Mechanical Ventilator 03/01/17 04:00 98.0 Intake and Output 02/28/17 02/28/17 03/01/17 15:00 23:00 07:00 Intake Total 1170 ml 1200 ml 1250 ml Output Total 88 ml 180 ml 125 ml Balance 1082 ml 1020 ml 1125 ml Results/Medications Result Diagram: 03/01/17 0458 03/01/17 0458 Results 24 hrs Laboratory Tests Test 03/01/17 04:58 03/01/17 07:03 White Blood Count 13.0 H Red Blood Count 3.62 L Hemoglobin 11.0 L Hematocrit 33.6 L Mean Corpuscular Volume 92.8 Mean Corpuscular Hemoglobin 30.4 Mean Corpuscular Hemoglobin Concent 32.7 Red Cell Distribution Width 15.7 H Platelet Count 185 Mean Platelet Volume 13.1 H Neutrophils % 89.1 H Lymphocytes % 4.2 L Monocytes % 5.8 Eosinophils % 0.0 Basophils % 0.4 Nucleated Red Blood Cells % 0.0 Neutrophils # 11.6 H Lymphocytes # 0.6 L Monocytes # 0.8 Eosinophils # 0.0 Basophils # 0.1 Nucleated Red Blood Cells # 0.0 Prothrombin Time 33.9 H Prothrombin Time Ratio 2.6 INR International Normalized Ratio 3.28 Sodium Level 141 Potassium Level 3.6 Chloride Level 107 Carbon Dioxide Level 27 Anion Gap 11 Blood Urea Nitrogen 32 H Creatinine 1.20 H Glucose Level 141 Calcium Level 7.5 L Lab Scanned Report REFERENCE LAB Medications Current Medications Ondansetron HCl (Zofran Inj) 4 mg Q6H PRN IV NAUSEA AND/OR VOMITING; Start 03/27 at 21:30 Acetaminophen (Tylenol Liquid) 650 mg Q6H PRN PO PAIN LEVEL 1-3 OR FEVER; Start 02/20/17 at 21:30 Morphine Sulfate (morphine) 2 mg Q4H PRN IV PAIN LEVEL 7-10 Last administered on 03/01/17 11:56; Admin Dose 2 MG; Start 02/20/17 at 21:30 Magnesium Hydroxide (Milk Of Mag) 30 ml DAILY PRN PO CONSTIPATION; Start 02/20 at 21:30 Atorvastatin Calcium (Lipitor) 40 mg QHS PO Last administered on 02/28/17 21: 00; Admin Dose 40 MG; Start 02/21/17 at 21:00 Famotidine (Pepcid) 20 mg HS GTB Last administered on 02/28/17 21:00; Admin Dose 20 MG; Start 02/21/17 at 21:00 Amiodarone HCl (Cordarone) 100 mg DAILY PO Last administered on 03/01/17 09: 27; Admin Dose 100 MG; Start 02/21/17 at 09:30 Warfarin Sodium (Coumadin) 1 mg DAILY PO ; Start 02/21/17 at 09:30; Status Future Hold Miscellaneous Information (Pending Santyl Order For Wound Care) This patient sadler... PRN PRN XX WOUND CARE; Start 02/21/17 at 10:00 Collagenase (Santyl) 1 applic DAILY TOP Last administered on 03/01/17 09:27; Admin Dose 1 APPLIC; Start 02/22/17 at 10:00 Ascorbic Acid (Vitamin C) 500 mg DAILY PO Last administered on 03/01/17 09:27 ; Admin Dose 500 MG; Start 02/23/17 at 09:00 Calcium/Vitamin D (Oyster Shell/ Vit-D (500/200)) 1 tab DAILY PO Last administered on 03/01/17 09:26; Admin Dose 1 TAB; Start 02/23/17 at 09:00 Docusate Sodium (Colace) 100 mg BID PO Last administered on 03/01/17 09:26; Admin Dose 100 MG; Start 02/22/17 at 21:00 Ferrous Sulfate (Ferrous Sulfate (Ec)) 325 mg DAILY PO Last administered on 09:26; Admin Dose 325 MG; Start 02/23/17 at 09:00 Furosemide (Lasix) 20 mg DAILY PO Last administered on 03/01/17 09:26; Admin Dose 20 MG; Start 02/23/17 at 09:00 Multivitamins Therapeutic 1 tab 1 tab DAILY PO Last administered on 03/01/17 09:26; Admin Dose 1 TAB; Start 02/23/17 at 09:00 Fentanyl (Sublimaze) 100 ml @ 2.5 mls/hr TITRATE IV Last administered on 02/26 05:12; Admin Dose 10 MLS/HR; Start 02/22/17 at 10:00 Metoprolol Tartrate 5 mg 5 mg Q6H PRN IV ELEVATED HEART RATE Last administered on 02/28/17 21:00; Admin Dose 5 MG; Start 02/23/17 at 02:40 Midazolam HCl 50 ml @ 1 mls/hr TITRATE PRN IV SEDATION; Start 02/23/17 at 11: 30 Sodium Bicarbonate 100 meq/Dextrose/ Sodium Chloride 1,000 ml @ 100 mls/hr Q10H IV Last administered on 03/01/17 10:25; Admin Dose 100 MLS/HR; Start at 11:00 Cefepime HCl (Maxipime 1gm/50 ml (Pmx)) 50 ml @ 100 mls/hr Q24H IVPB Last administered on 02/28/17 21:00; Admin Dose 100 MLS/HR; Start 02/24/17 at 21: 00 Fluconazole (Diflucan) 100 mg DAILY PO Last administered on 03/01/17 09:26; Admin Dose 100 MG; Start 02/24/17 at 13:30 Assessment/Plan Chief Complaint/Hosp Course SUBJECTIVE: No acute changes. The patient remains intubated, off sedation, tachycardic, no fevers, nad MICROBIOLOGY: Blood culture on admission grew Corynebacterium species and coagulase-negative staph species 1 out of 2 sets. Repeat cultures negative. Endotracheal aspirate grew Kristal albicans. ANTIMICROBIALS: The patient is on: 1. Cefepime. 2. Fluconazole. INDWELLINGS: Endotracheal tube, NG tube, Najera, left subclavian triple-lumen catheter. PHYSICAL EXAMINATION: GENERAL: This is a chronically ill-appearing, elderly woman who is in no distress. HEENT: Head atraumatic, normocephalic. Sclerae anicteric. Buccal mucosa dry. NECK: Supple. CHEST: Rise symmetrical. Breath sounds diminished to bases. HEART: S1, S2. ABDOMEN: Soft, bowel tones present. EXTREMITIES: Without cyanosis. ASSESSMENT: 1. Status post septic shock. 2. Pneumonia with acute respiratory failure. 3. Encephalopathy. 4. Atrial fibrillation. 5. Congestive heart failure. PLAN: The patient remains unchanged, she is DNR status, poss terminal extubation. We will continue her on current antibiotics [facility] staff Problems: SHALOM ESTRADA NP Mar 01, 2017 14:12
[2017-03-01] MEDS ORDERED: DIMETHICONE STICK TOP PRN (19:00)
[2017-03-01] MEDS ORDERED: ARTIFICIAL TEARS 15 ML OPH BOTH EYES PRN (19:00)
[2017-03-01] MEDS ORDERED: morphine (DRIP) 100 MG/100 ML 100 ML IV SCH (19:00)
[2017-03-01] MEDS ORDERED: LORAZEPAM 2 MG INJ ONE (19:09)
[2017-03-01] MEDS ORDERED: morphine (DRIP) 100 MG/100 ML 100 ML IV ONE (19:09)
[2017-03-01] MEDS: LORAZEPAM 2 MG INJ IV PRN (19:15)
[2017-03-02 02:42] VITALS: BP 121/69
[2017-03-02 07:40] VITALS: BP 138/63
[2017-03-02] MEDS ORDERED: SCOPOLAMINE 1.5 MG PATCH TRANSDERM ONE (15:00)
[2017-03-02] MEDS: LORAZEPAM 2 MG INJ IV PRN (15:01)
--- NOTE | 2017-03-02 15:03 | PN ---
Date/Time of Note Date/Time of Note DATE: 03/02/17 TIME: 15:00 Assessment/Plan VTE Prophylaxis VTE Prophylaxis Intervention: SCD's Lines/Catheters IV Catheter Type (from Nrsg): Peripheral IV Urinary Cath still in place: Yes Reason Cath still needed: urinary retention Assessment/Plan Chief Complaint/Hosp Course Assessment/Plan: 86 yo F with advanced dementia, AFib, hypothyroid admitted for acute hypoxic respiratory and sepsis, possibly from pneumonia. Also complicated by shock liver which is resolving, with respiratory failure, now terminally extubated 24 hours ago, on comfort care measures 1. sepsis with hypoxic respiratory failure: Likely secondary to pneumonia. Was intubated, now terminally extubated, on comfort care measures only. -Continue Ativan and morphine as needed, to make patient comfortable, will add scopolamine patch. -Will await bhupinder's hospice evaluation as well at son's request. Problems: Subjective 24 Hr Interval Summary Free Text/Dictation Patient terminally extubated yesterday, on morphine drip now, out of ICU. Family agreeable to hospice now. Exam/Review of Systems Vital Signs Vitals Vital Signs Date Time Temp Pulse Resp B/P Pulse Ox O2 Delivery O2 Flow Rate FiO2 03/02/17 07:40 96.9 130 138/63 03/01/17 23:45 Nasal Cannula 2.0 03/01/17 23:00 17 100 03/01/17 19:20 30 Intake and Output 03/01/17 03/01/17 03/02/17 15:00 23:00 07:00 Intake Total 1060 ml 558 ml 15 ml Output Total 93 ml 30 ml 15 ml Balance 967 ml 528 ml 0 ml Exam Lying in bed, intubated, Nad Supple no mrg lungs clear abd soft no lower extremity edema bilaterally Results Result Diagram: 03/01/17 0458 03/01/17 0458 Medications Medications Current Medications Morphine Sulfate/ Sodium Chloride (morphine) 100 ml @ 1 mls/hr TITRATE IV Last administered on 03/01/17 19:15; Admin Dose 1 MLS/HR; Start 03/01/17 at 19:00 Lorazepam (Ativan) 1 mg Q4H PRN IV ANXIETY/SEIZURES Last administered on 19:15; Admin Dose 1 MG; Start 03/01/17 at 19:00 Scopolamine (Transderm-Scop) 1 patch ONCE ONCE TRANSDERM ; Start 03/02/17 at 15:00; Stop 03/02/17 at 15:01; Status UNV MELANIA ALEJANDRO Mar 02, 2017 15:03
[2017-03-02 15:17] VITALS: BP 131/62; RESP 12
[2017-03-02] MEDS ORDERED: LORAZEPAM 2 MG INJ IV PRN (15:30)
--- NOTE | 2017-03-02 16:32 | DES ---
Date/Time of Note Date/Time of Note DATE: 03/02/17 TIME: 16:27 Discharge/ Summary Admission/Discharge Info Admit Date/Time Feb 20, 2017 at 21:09 Discharge Date/Time Final Diagnosis 1. sepsis: Likely secondary to pneumonia 2. hypoxic respiratory failure 3. KAVYA: 4. pressure ulcer: wound care on cs 5. transaminitis: shock liver 7. AFib 8. chronic systolic HF: 9. hypothyroid Preliminary Cause of 1. Respiratory failure -hours 2. Pneumonia - days Hospital Course 86-year-old female with a history of CVA, mitral valve repair and left buttock ulcer who was sent from a intermediate facility for worsening altered mentation. Reportedly when EMS arrived, she was hypoxic. When patient presented to the ER, she was unresponsive. She was intubated for airway protection. Reportedly [facility] and has been treated for ESBL UTI. On initial presentation to the ER, she was in A-fib with RVR with a heart rate as high as 129. Chest x-ray with left lower lung base pneumonia. Head CT shows Extensive chronic microvascular ischemic changes Chronic infarcts in the right occipital lobe and right cerebellar hemisphere. Labs shows a WBC of 17,000, potassium 5.5, bicarb 16, creatinine 1.05, ALT almost 1500. Initial lactic acid was 4 with repeat 2.1. Initial ABG shows a pH of 7.29, PCO2 29, PO2 432, bicarb 14 on 100% FiO2. Patient was admitted seen by multiple specialists during this hospital stay including pulmonary, palliative care team, infectious disease, case management team. She was intubated for respiratory failure and septic shock, secondary to pneumonia. Patient also found with transaminitis secondary to septic shock, which was slowly improving, also pressure ulcer which was managed as well. She was placed on antibiotics. Patient also history of systolic heart failure, and palliative care team and pre owned sales consultant teams met with son, and patient was made DNR. Eventually decision was made after son met with these teams to plan for terminal extubation as patient had chronic rotatory failure. She was extubated 24 hours before date of expiration. Transferred to the floor, placed on morphine and Ativan drips. Patient unfortunately at 4 PM on February. Assessment/Plan: 86 yo F with advanced dementia, AFib, hypothyroid admitted for acute hypoxic respiratory and sepsis, possibly from pneumonia. Also complicated by shock liver which is resolving, with respiratory failure, now terminally extubated 24 hours ago, on comfort care measures 1. sepsis with hypoxic respiratory failure: Likely secondary to pneumonia. Was intubated, now terminally extubated, on comfort care measures only. -Continue Ativan and morphine as needed, to make patient comfortable, will add scopolamine patch. -Will await bhupinder's hospice evaluation as well at son's request. MELANIA ALEJANDRO. Mar 02, 2017 16:32
== END 2017-03-02 16:00 | disposition expired | DRG 870 ==
LOC: E/R 17:31 → ICU 21:09 → PP2 03-01
PROVIDERS: ADMIT Internal Medicine; ATTEND Internal Medicine
PROC: 5A1955Z Respiratory Ventilation, Greater than 96 Consecutive Hours (ICD-10-PCS; principal; 2017-02-20)
PROC: 0BH17EZ Insertion of Endotracheal Airway into Trachea, Via Natural or Artificial Opening (ICD-10-PCS; 2017-02-20)
DX: A41.1 Sepsis due to other specified staphylococcus (principal); J96.01 Acute respiratory failure with hypoxia; K72.00 Acute and subacute hepatic failure without coma; R65.21 Severe sepsis with septic shock; J18.9 Pneumonia, unspecified organism; G93.41 Metabolic encephalopathy; N17.9 Acute kidney failure, unspecified; L89.153 Pressure ulcer of sacral region, stage 3; I50.22 Chronic systolic (congestive) heart failure; E87.0 Hyperosmolality and hypernatremia; E87.2 Acidosis; B37.0 Candidal stomatitis; Z79.01 Long term (current) use of anticoagulants; E03.9 Hypothyroidism, unspecified; Z86.73 Personal history of transient ischemic attack (TIA), and cerebral infarction without residual deficits; F03.90 Unspecified dementia, unspecified severity, without behavioral disturbance, psychotic disturbance, mood disturbance, and anxiety; Z95.2 Presence of prosthetic heart valve; Z66 Do not resuscitate; I70.0 Atherosclerosis of aorta; I67.9 Cerebrovascular disease, unspecified; I48.2 Chronic atrial fibrillation; Z51.5 Encounter for palliative care
CPT/HCPCS: 31500; 36415; 36600; 70450; 71010; 76700; 76937; 80048; 80053; 80076; 80306; 81001; 81003; 82140; 82150; 82436; 82803; 83605; 83690; 83735; 84100; 84133; 84155; 84300; 84484; 85025; 85610; 85730; 86403; 86704; 86706; 86803; 87040; 87070; 87081; 87086; 87275; 87276; 87279; 87280; 87340; 93005; 93306; 94002; 94003; 94770; 96374; 96375; C1751; C9113; J0692; J2060; J2185; J2270; J3010; J3370; J7030; J7042